=== PATIENT | male | born 1945 | race Caucasian/White ===

== ENCOUNTER 2016-12-28 19:53 | Inpatient (IN) ==
[2016-12-28] MEDS ORDERED: Ipratropium/Albuterol Neb 3 ML IH ONE (20:19)
[2016-12-28 20:32] LABS: Basophils # 0.1 K/mcL (0.0-0.2); Basophils % 0.6 %; Eosinophils # 0.2 K/mcL (0.0-0.6); Eosinophils % 1.5 %; Hematocrit 35.5 % (37.5-50.1); Hemoglobin 10.7 g/dL (12.9-16.9); Immature Granulocytes % 0.4 % (0-4); Lymphocytes # 0.9 K/mcL (0.6-4.6); Lymphocytes % 7.7 %; Mean Corpuscular HGB Conc 30.1 g/dL (31.6-35.5); Mean Corpuscular Hemoglobin 26.2 pg (28.0-33.3); Mean Corpuscular Volume 86.8 fL (83.0-100.0); Mean Platelet Volume 10.9 fL (9.4-12.4); Monocytes % 8.7 %; Neutrophils # 9.2 K/mcL (1.6-8.9); Platelet Count 205 K/mcL (140-400); Red Blood Count 4.09 M/mcL (4.19-5.50); Red Cell Distribution Width 17.7 % (11.5-14.5); Segmented Neutrophils % 81.1 %
[2016-12-28 20:46] LABS: Potassium 3.4 mEq/L (3.5-4.5)
--- NOTE | 2016-12-28 20:50 | Emergency Department Note ---
Disposition Clinical Impression: Hypoxia CHF exacerbation Qualifiers: Congestive heart failure type: unspecified congestive heart failure type Qualified Code(s): I50.9 - Heart failure, unspecified Disposition: Admitted As Inpatient SOB HPI - General Chief Complaint: ED Shortness of Breath/Dyspnea Stated Complaint: dahlia/had heart sx this year Time Seen by Provider: 12/28/16 20:07 Source: patient Limitations: no limitations Nursing Notes Reviewed: Yes Vital Signs Reviewed: Yes - History of Present Illness Patient here for evaluation of shortness of breath started several days ago and has been progressively worsening nature. Patient initially saw his PCP and was given some albuterol. No previous official diagnosis of COPD per patient. Patient had recent bypass surgery in August and has been doing well since then. Patient has had a recent decreased exertional capacity related to dyspnea. Patient does report some associated chest pain described as pressure that is relieved with rest and worse with exertion. - Related Data Home Medications Medication Instructions Recorded Confirmed Amlodipine Besylate 10 mg PO DAILY 10/22/16 11/07/16 Aspirin Enteric Coated [Aspirin EC] 81 mg PO DAILY 10/22/16 11/07/16 Calcitriol [Rocaltrol] 0.25 mcg PO DAILY 10/22/16 11/07/16 Calcium Acetate [Phos-LO] 667 mg PO TIDWM 10/22/16 11/07/16 Carvedilol 12.5 mg PO BID 10/22/16 11/07/16 Citalopram [CeleXA] 20 mg PO DAILY 10/22/16 11/07/16 Clopidogrel [Plavix] 75 mg PO DAILY 10/22/16 11/07/16 Docusate [Colace] 100 mg PO BID PRN 10/22/16 11/07/16 Ergocalciferol (VITAMIN D2) 2,000 unit PO BID 10/22/16 11/07/16 [Vitamin D2] HYDROcodone/Acet 5/325 mg [[place] 1 tab PO Q4H PRN 10/22/16 11/07/16 5-325 mg] Hydroxychloroquine [Plaquenuil] 200 mg PO BID 10/22/16 11/07/16 Montelukast [Singulair] 10 mg PO DAILY 10/22/16 11/07/16 Multivitamin [Multivitamins] 1 each PO DAILY 10/22/16 11/07/16 Polyethylene Glycol 3350 [MiraLAX 1 scoop PO BID PRN 10/22/16 11/07/16 Powder Bulk 17.9 Oz] hydrALAZINE [HydrALAZINE] 25 mg PO Q8HR 10/22/16 11/07/16 Allergies Allergy/AdvReac Type Severity Reaction Status Date / Time Twwjskh-Cgu-Swn Reductase Allergy Cramping Verified 08/22/16 21:47 Inhibitor of the [Statins] Muscles All systems ED: reviewed and negative except as stated. Constitutional: Denies: fever, chills Cardiovascular: Reports: chest pain, dyspnea on exertion Respiratory: Reports: cough, dyspnea Gastrointestinal: Denies: abdominal pain, nausea Genitourinary: Denies: urgency, dysuria Musculoskeletal: Denies: back pain, neck pain Endocrine: Reports: fatigue Past Medical History - Past Medical History Medical history: Reports: COPD, dialysis, GERD, hyperlipidemia, hypertension, myocardial infarction, renal disease, TIA Psychiatric history: Reports: anxiety - Social History Smoking Status: Former smoker Smokeless Tobacco Status: No Alcohol use: Reports: none Drug use: Reports: none Physical Exam - General Limitations: no limitations General appearance: alert - Head Head exam: atraumatic, normocephalic - Eye Eye exam: Present: normal appearance - ENT ENT exam: normal exam, normal oropharynx - Neck Neck exam: Present: normal inspection, full ROM - Chest Chest inspection: Present: normal inspection, symmetric chest wall rise. Absent : tenderness - Respiratory Respiratory exam: Present: normal lung sounds bilaterally, other (Overall decreased breath sounds). Absent: respiratory distress, wheezes - Cardiovascular Cardiovascular exam: Present: regular rate, normal rhythm - Abdominal Exam Abdominal exam: Present: soft, Non-Tender - Extremities Exam Extremities exam: Present: normal inspection. Absent: tenderness - Neurological Exam Neurological exam: Present: alert, oriented X3, CN II-XII intact - Psychiatric Psychiatric exam: Present: normal affect, normal mood - Skin Skin exam: Present: warm, dry, intact Course - Reevaluation(s) Reevaluation #1: Patient with significantly elevated BNP and pulmonary edema. Patient states that he had been off his Lasix for quite some time and was restarted recently. Patient does make urine. Patient will be given a dose of Lasix as well as antibiotics secondary to elevated temperature and white count. - Consultations Consultation #1: Discussed with hospitalist Dr. Multani. Pt accepted for further treatment. Vital Signs Temperature 100.3 F H 12/28/16 19:56 Pulse Rate 85 12/28/16 19:56 Respiratory Rate 20 12/28/16 19:56 Blood Pressure 178/78 12/28/16 19:56 O2 Sat by Pulse Oximetry 91 12/28/16 19:56 Temperature 100.3 F H 12/28/16 19:56 Pulse Rate 86 12/28/16 22:11 Respiratory Rate 20 12/28/16 22:11 Blood Pressure 177/91 12/28/16 22:11 O2 Sat by Pulse Oximetry 94 12/28/16 22:11 Oxygen Delivery Oxygen Delivery Nasal Cannula Shortness of Breath/Dyspnea - Medical Records Medical records reviewed: Yes I reviewed the patient's medical records. - Lab Data Lab results reviewed: Yes I reviewed the patient's lab results. Result diagrams: 12/28/16 20:26 12/28/16 20:26 Lab Results 12/28/16 12/28/16 12/28/16 Range/Units 20:26 20:26 20:26 WBC 11.3 H (4.3-11.1) K/mcL RBC 4.09 L (4.19-5.50) M/mcL Hgb 10.7 L (12.9-16.9) g/dL Hct 35.5 L (37.5-50.1) % MCV 86.8 (83.0-100.0) fL MCH 26.2 L (28.0-33.3) pg MCHC 30.1 L (31.6-35.5) g/dL RDW 17.7 H (11.5-14.5) % Plt Count 205 (140-400) K/mcL MPV 10.9 (9.4-12.4) fL Immature Gran % 0.4 (0-4) % Seg Neutrophils % 81.1 % Lymphocytes % 7.7 % Monocytes % 8.7 % Eosinophils % 1.5 % Basophils % 0.6 % Neutrophils # 9.2 H (1.6-8.9) K/mcL Lymphocytes # 0.9 (0.6-4.6) K/mcL Monocytes # 1.0 (0.0-1.3) K/mcL Eosinophils # 0.2 (0.0-0.6) K/mcL Basophils # 0.1 (0.0-0.2) K/mcL Sodium 139 (136-145) mEq/L Potassium 3.4 L (3.5-4.5) mEq/L Chloride 103 (98-109) mEq/L Carbon Dioxide 26 (19-29) mEq/L BUN 23 (8-26) mg/dL Creatinine 3.83 H (0.72-1.25) mg/dL Est GFR ( Amer) 19 L (> 60) Est GFR (Non-Af Amer) 16 L (> 60) BUN/Creatinine Ratio 6 (6-26) Glucose 121 H (70-99) mg/dL Calculated Osmolality 293 (280-300) Calcium 9.0 (8.6-10.8) mg/dL Troponin I 0.05 H* (0-0.03) ng/mL B-Natriuretic Peptide (0-100) pg/mL 12/28/16 Range/Units 20:26 WBC (4.3-11.1) K/mcL RBC (4.19-5.50) M/mcL Hgb (12.9-16.9) g/dL Hct (37.5-50.1) % MCV (83.0-100.0) fL MCH (28.0-33.3) pg MCHC (31.6-35.5) g/dL RDW (11.5-14.5) % Plt Count (140-400) K/mcL MPV (9.4-12.4) fL Immature Gran % (0-4) % Seg Neutrophils % % Lymphocytes % % Monocytes % % Eosinophils % % Basophils % % Neutrophils # (1.6-8.9) K/mcL Lymphocytes # (0.6-4.6) K/mcL Monocytes # (0.0-1.3) K/mcL Eosinophils # (0.0-0.6) K/mcL Basophils # (0.0-0.2) K/mcL Sodium (136-145) mEq/L Potassium (3.5-4.5) mEq/L Chloride (98-109) mEq/L Carbon Dioxide (19-29) mEq/L BUN (8-26) mg/dL Creatinine (0.72-1.25) mg/dL Est GFR ( Amer) (> 60) Est GFR (Non-Af Amer) (> 60) BUN/Creatinine Ratio (6-26) Glucose (70-99) mg/dL Calculated Osmolality (280-300) Calcium (8.6-10.8) mg/dL Troponin I (0-0.03) ng/mL B-Natriuretic Peptide > 5000 H (0-100) pg/mL - Radiology Data Radiology results reviewed: Yes I reviewed the patient's radiology results. - EKG Data EKG attestation: Yes I reviewed and interpreted this EKG. EKG results narrative: EKG shows sinus rhythm with ventricular rate of 84. DC interval 185. QRS 106. QTC 405. Patient has no specific ST elevations or depressions. Nonspecific ST wave changes. Attestation Statement - Attestation Attestation: I personally interviewed and examined this patient and my medical decision- making was reviewed with the ED Resident Physician, Dr. Torres. I agree with the documented findings, disposition and treatment plan as described except to the extent set forth below. Patient is a 71-year-old white male with a history of coronary artery disease, COPD, CHF who presents to emergency department today with shortness of breath and hypoxia. Patient is 91% on 2 L nasal cannula oxygen, not normally oxygen dependent on arrival. Patient with tachypnea and coarse sounding cough at bedside. Patient with mild respiratory distress on arrival. Patient receiving a DuoNeb on my evaluation with diminished breath sounds in the right lung base, patient reporting improved symptoms during nebulizer treatment. Patient also febrile on arrival with a temp of 100.3. Patient's EKG unremarkable for any acute findings. Patient given aspirin. Labs were drawn and sent. Portable chest x-ray was ordered. Labs show mild leukocytosis, patient with a hemoglobin of 10.3 which is improved from prior labs. Patient with elevated troponin at 0.05. This is in the setting of renal insufficiency which is actually much improved from his baseline. Patient's chest x-ray shows pulmonary edema with bilateral pleural effusions right greater than left. Patient was given Lasix IV. On reevaluation patient's family stated that his Lasix had recently been stopped and he was supposed to restart it but had not taken any as of yet. Patient at this time improved respiratory status. We will also cover with antibiotics in the setting of pulmonary edema elevated white count and fever case there could be an underlying infiltrate as his symptoms are mainly surrounding cough and mild respiratory distress. Patient's been accepted for admission by the hospitalist for further evaluation and treatment. Patient's respiratory status has been stable with just supplemental nasal cannula oxygen.
[2016-12-28] MEDS ORDERED: Furosemide 40 MG/4 ML VIAL IVP ONE (22:30)
[2016-12-28] MEDS ORDERED: Piperacillin/Tazobactam 3.375 GM in D5% in Water (Mini-Bag+) 100 ML IVPB ONE (22:33)
[2016-12-28] MEDS ORDERED: Aspirin 81 MG TAB.CHEW PO STA (22:36)
[2016-12-29] MEDS ORDERED: Naloxone 0.4 MG/ML INJ IVP PRN (00:35)
[2016-12-29] MEDS ORDERED: Furosemide 40 MG/4 ML VIAL IVP ONE (00:39)
--- NOTE | 2016-12-29 00:43 | Internal Med History&Physical ---
Date of Encounter: 12/29/16 Time of Encounter: 00:43 Assessment and Plan (1) Acute respiratory failure Current visit: Yes Status: Acute Likely due to pulmonary edema / volume overload/acute exacerbation of CHF. Continue supplemental oxygen. Patient is given intravenous Lasix. Nephrology consultation for possible hemodialysis to improve volume status Qualifiers: Respiratory failure complication: hypoxia Qualified Code(s): J96.01 - Acute respiratory failure with hypoxia (2) CHF exacerbation Current visit: Yes Status: Acute Pt has h/o CAD / s/p CABG. We do not have echocardiogram result in the system - will obtain echocardiogram. Treat with lasix IV for now. Nephrology consult in the AM. Qualifiers: Congestive heart failure type: unspecified congestive heart failure type Qualified Code(s): I50.9 - Heart failure, unspecified (3) ESRD (end stage renal disease) on dialysis Current visit: Yes Status: Acute Nephrology consultation (4) Elevated troponin Current visit: Yes Status: Acute Likely in the context of CHF exacerbation and ESRD. Monitor troponin levels (5) UTI (urinary tract infection) Current visit: Yes Status: Suspected Pt has symptoms suggestive of UTI. UA / cultures pending. Emperically started on zosyn. Qualifiers: Urinary tract infection type: site unspecified Hematuria presence: without hematuria Qualified Code(s): N39.0 - Urinary tract infection, site not specified (6) Diabetes mellitus Current visit: Yes Status: Acute Start sliding scale insulin Qualifiers: Diabetes mellitus type: type 2 Diabetes mellitus complication status: with unspecified complications Diabetes mellitus senior living insulin use: without senior living use Qualified Code(s): E11.8 - Type 2 diabetes mellitus with unspecified complications (7) Pleural effusion Current visit: Yes Status: Acute B/L effusions R>L. Likely due to volume overload due to CHF and ESRD. Not for thoracentesis at this time. (8) Anemia Current visit: Yes Status: Chronic Normocytic anemia; Likely Anemia of chronic disease from ESRD. Monitor Qualifiers: Anemia type: unspecified type Qualified Code(s): D64.9 - Anemia, unspecified (9) DVT prophylaxis Current visit: Yes Status: Acute Subcutaneous heparin Internal Medicine - H&P: HPI Chief complaint: Shortness of breath Admitted From: Emergency Dept Plans for Post Hospital Care: Home History of present illness: Mr. Rea is a 71 year old male with past medical history significant for CAD / PR s/p CABG, ESRD on hemodialysis (he reports that his dry weight is 85 Kg; his reports that he does not have fluid removed during dialysis), hypertension, diet-controlled diabetes mellitus, GERD. He presents to the emergency department with gradually worsening shortness of breath, which started a few days ago. Shortness of breath is exertional and he also reports orthopnea. He reports wet cough but is unable to expectorate any sputum. Reports swelling of ankles. He denies chest pain, fever, chills, nausea, vomiting, abdominal pain, changes in bowel habits. He reports that he is not producing as much urine, and apparently urine is cloudy / creamy. He was evaluated in the emergency department and was noted to have oxygen saturation of 91% on 2 L nasal cannula oxygen, (not normally oxygen dependent). He was thought to have pulmonary edema and was given intravenous Lasix 40 mg. Had leukocytosis with white cell count of 11.3 and temperature of 100.3 He was empirically given zosyn, in the ER for suspected underlying pneumonia. He is admitted to the hospitalist service for further workup and management. Past Med Surg Social Fam HX - Past Medical History Medical history: COPD, dialysis, GERD, hyperlipidemia, hypertension, myocardial infarction, renal disease, TIA Psychiatric history: anxiety - Past Surgical History Surgical History: angioplasty/stent, appendectomy - Social History Smoking Status: Former smoker Smokeless Tobacco Status: No Alcohol use: none Drug use: none - Family History Father Name: Anibal Rea Jr Family Member Ethnicity: Non- Living Status: Cause of : renal failure Hx Family Cardiac Disorders: Yes Hx Family Respiratory Disorders: No Hx Family Cancer: No Hx Family GI Disorders: No Hx Family Genitourinary Disorders: No Hx Family Endocrine Disorder: Yes Hx Family Musculoskeletal Disorders: No Hx Family Neuromuscular Disorders: No Hx Family Neurologic Disorders: No Hx Family HEENT Disorders: No Hx Family Autoimmune Disorders: No Hx Family Reproductive Disorders: No Hx Family Psychosocial Disorders: No Hx Family Medical Disorders: No Internal Medicine - H&P: Meds Amlodipine Besylate 10 mg PO DAILY 10/22/16 [History] Aspirin Enteric Coated [Aspirin EC] 81 mg PO DAILY 10/22/16 [History] Calcitriol [Rocaltrol] 0.25 mcg PO DAILY 10/22/16 [History] Calcium Acetate [Phos-LO] 667 mg PO TIDWM 10/22/16 [History] Carvedilol 12.5 mg PO BID 10/22/16 [History] Citalopram [CeleXA] 20 mg PO DAILY 10/22/16 [History] Clopidogrel [Plavix] 75 mg PO DAILY 10/22/16 [History] Docusate [Colace] 100 mg PO BID PRN 10/22/16 [History] Ergocalciferol (VITAMIN D2) [Vitamin D2] 2,000 unit PO BID 10/22/16 [History] HYDROcodone/Acet 5/325 mg [[place] 5-325 mg] 1 tab PO Q4H PRN 10/22/16 [History] Hydroxychloroquine [Plaquenuil] 200 mg PO BID 10/22/16 [History] Montelukast [Singulair] 10 mg PO DAILY 10/22/16 [History] Multivitamin [Multivitamins] 1 each PO DAILY 10/22/16 [History] Polyethylene Glycol 3350 [MiraLAX Powder Bulk 17.9 Oz] 1 scoop PO BID PRN [History] hydrALAZINE [HydrALAZINE] 25 mg PO Q8HR 10/22/16 [History] Allergies Aiwwiis-Nqd-Faq Reductase Inhibitor [Statins] Allergy (Verified 08/22/16 21:47) Cramping of the Muscles All Systems PM: A 10-system review of systems was performed and is negative for pertinent findings except as documented above in the HPI. - Constitutional Vitals: Temp Pulse Resp BP Pulse Ox 98.8 F 89 20 185/84 90 12/28/16 23:43 12/28/16 23:43 12/28/16 23:43 12/28/16 23:43 12/28/16 23:43 Exam: General: Not in acute distress at the time of my evaluation HEENT: Oral mucosa is moist. No conjunctival palor or scleral icterus Neck: No obvious neck swellings. He has righ IJ dialysis catheter in place Lungs: Diminished breath sounds right base. Basilar crackles Cardiac: Regular rate and rhythm. No significant murmurs Abdomen: Soft, non tender. Bowel sounds present Genitourinary: No you catheter Neurological: Alert and oriented. No gross localizing deficits Psych: Not aggressive or agitated Extremities: B/L leg edema present Skin: No generalized rash Internal Med - H&P Results - Labs CBC & Chem 7: 12/29/16 01:03 12/29/16 01:03 - EKG Data -: EKG Interpreted by Myself EKG shows normal: sinus rhythm - EKG Data EKG comments: Non specific ST-T changes 12/29/16 08:52 - Impressions ITS Impressions Chest X-Ray 12/28/16 20:18 IMPRESSION: Pulmonary edema. Moderate right pleural effusion and small left pleural effusion. D/ / Umberto Troy MD / Umberto Troy MD Interpreting Provider: Umberto Troy MD
[2016-12-29 01:18] LABS: Basophils # 0.1 K/mcL (0.0-0.2); Basophils % 0.6 %; Eosinophils # 0.1 K/mcL (0.0-0.6); Eosinophils % 0.8 %; Hematocrit 35.6 % (37.5-50.1); Hemoglobin 10.9 g/dL (12.9-16.9); Immature Granulocytes % 0.4 % (0-4); Lymphocytes # 0.8 K/mcL (0.6-4.6); Mean Corpuscular HGB Conc 30.6 g/dL (31.6-35.5); Mean Corpuscular Hemoglobin 26.7 pg (28.0-33.3); Mean Platelet Volume 11.3 fL (9.4-12.4); Monocytes # 0.9 K/mcL (0.0-1.3); Monocytes % 7.9 %; Neutrophils # 9.8 K/mcL (1.6-8.9); Platelet Count 197 K/mcL (140-400); Red Blood Count 4.09 M/mcL (4.19-5.50); Red Cell Distribution Width 17.8 % (11.5-14.5); Segmented Neutrophils % 83.3 %
[2016-12-29 01:30] LABS: Calcium 8.7 mg/dL (8.6-10.8); Magnesium 2.1 mg/dL (1.6-2.6); Potassium 3.5 mEq/L (3.5-4.5)
[2016-12-29] MEDS: *HR* Heparin 5,000 UNIT/ML VIAL SQ SCH ×3 (06:01→22:07)
[2016-12-29] MEDS: Aspirin Enteric Coated 81 MG Tablet PO SCH (08:42)
[2016-12-29] MEDS: amLODIPine 5 MG TABLET PO SCH (08:42)
[2016-12-29] MEDS: Lactobacillus 1 EACH CAP.SPRINK PO SCH ×2 (08:42→22:07)
[2016-12-29] MEDS: Cholecalciferol (D-3) 1,000 UNIT TABLET PO SCH ×2 (08:43→22:06)
[2016-12-29] MEDS ORDERED: Ipratropium/Albuterol Neb 3 ML IH PRN (09:01)
[2016-12-29 09:21] LABS: Adenovirus Not Detected (Not Detect); Bordetella Pertussis Not Detected (Not Detect); Chlamydophila pneumoniae Not Detected (Not Detect); Coronavirus 229E Not Detected (Not Detect); Coronavirus HKU1 Not Detected (Not Detect); Coronavirus NL63 Not Detected (Not Detect); Coronavirus OC43 Not Detected (Not Detect); Human Metapneumovirus Not Detected (Not Detect); Human Rhinovirus/Enterovirus Not Detected (Not Detect); Influenza A Subtype 2009 H1 Not Detected (Not Detect); Influenza A Untypeable Not Detected (Not Detect); Influenza B Not Detected (Not Detect); Mycoplasma pneumoniae Not Detected (Not Detect); Parainfluenza Virus 1 Not Detected (Not Detect); Parainfluenza Virus 2 Not Detected (Not Detect); Parainfluenza Virus 3 Not Detected (Not Detect); Parainfluenza Virus 4 Not Detected (Not Detect); Respiratory Syncytial Virus Not Detected (Not Detect)
[2016-12-29 10:26] LABS: Bilirubin,Urine Negative (Negative); Blood,Urine Small (Negative); Clarity,Urine Clear (Clear); Color,Urine Yellow (Yellow); Glucose,Urine (UA) Normal (Normal); Ketones,Urine Negative (Negative); Leukocyte Esterase,Urine Negative (Negative); Nitrite,Urine Negative (Negative); PH,Urine 7.5 pH Units (5.0-8.0); Protein,Urine >=1000 mg/dL (Neg-Trace); Specific Gravity,Urine 1.018 (1.010-1.025); Urobilinogen,Urine Normal (Normal)
[2016-12-29 10:28] LABS: Bacteria,Urine None Seen per hpf (None-Few); Hyaline Casts,Urine None Seen per lpf (None-Few); RBC,Urine 0-3 per hpf (0-3); Squamous Epithelial Cell,Urine Many per lpf (None-Few)
[2016-12-29] MEDS ORDERED: Piperacillin/Tazobactam 3.375 GM in D5% in Water (Mini-Bag+) 100 ML IVPB SCH (11:00)
--- NOTE | 2016-12-29 11:02 | Internal Med Progress Note ---
Date of Encounter: 12/29/16 Time of Encounter: 09:00 - Assessment and plan (1) CHF exacerbation Current Visit: Yes Status: Acute Assessment and plan: Shortness of breath in patient with history of congestive heart failure and coronary artery disease on chronic hemodialysis. Brain natruretic peptide over 5000. He has only a minimal amount of residual urine on a daily basis, he did receive a dose of Lasix in the emergency department. He feels better than yesterday but is still short of breath. We will get an opinion from nephrology for possibility of hemodialysis. Additionally, an echocardiogram has been requested to assess left ventricular systolic function. His medications including his home Plavix and aspirin have been [place] started. The patient was explained about the plan. All his questions were answered. Qualifiers: Congestive heart failure type: unspecified congestive heart failure type Qualified Code(s): I50.9 - Heart failure, unspecified (2) ESRD (end stage renal disease) on dialysis Current Visit: Yes Status: Acute Assessment and plan: Hemodialysis as per nephrology. (3) Acute respiratory failure Current Visit: Yes Status: Acute Assessment and plan: The patient is currently on oxygen supplementation via nasal cannula. Likely due to fluid overload in setting of CHF and end-stage renal disease. Not in significant respiratory distress at this point. Qualifiers: Respiratory failure complication: hypoxia Qualified Code(s): J96.01 - Acute respiratory failure with hypoxia (4) UTI (urinary tract infection) Current Visit: Yes Status: Suspected Assessment and plan: Patient was started on IV antibiotic for a possible UTI. He was initially given Zosyn. At this point there is no leukocytosis, patient seems hemodynamically stable, will de-escalate to Rocephin and follow cultures. Infectious respiratory panel was obtained, it was negative. Max temperature 100.3 Fahrenheit. Qualifiers: Urinary tract infection type: site unspecified Hematuria presence: without hematuria Qualified Code(s): N39.0 - Urinary tract infection, site not specified (5) DVT prophylaxis Current Visit: Yes Status: Acute (6) Pleural effusion Current Visit: Yes Status: Acute - Subjective Interval history: First encounter with the patient. The patient was admitted due to shortness of breath, he denied chest pain. He is a patient of end-stage renal disease on hemodialysis, his last hemodialysis was on Friday. He typically has them on dialysis Friday, Wednesdays and Fridays. He is status has a history of CABG, he also had a PCI status post stents around a month ago at [facility]. He is on dual antiplatelet therapy with both aspirin and Plavix. - Constitutional Vitals: Temp Pulse Resp BP Pulse Ox 98.3 F 101 18 180/88 91 12/29/16 07:20 12/29/16 07:20 12/29/16 07:20 12/29/16 07:20 12/29/16 09:00 General appearance: Present: mild distress, A&O X 3, pleasant - Head Head exam: Present: atraumatic, normocephalic - Eye Eye exam: Present: PERRL, conjuntiva pink, sclera anicteric Pupils: Present: PERRL - Neck Neck exam general surgery: Present: supple, trachea midline. Absent: lymphadenopathy - Respiratory Respiratory exam: Present: decreased breath sounds. Absent: accessory muscle use, rales, rhonchi, wheezes - Cardiovascular Cardiovascular exam: Present: RRR, +S1, +S2. Absent: diastolic murmur, gallop, rubs, systolic murmur - GI/Abdominal GI/Abdominal exam: Present: normal bowel sounds, soft, no peritoneal signs. Absent: distended, tenderness - Extremities Exam Extremities exam: Present: pedal edema, warm, radial pulses palpable and symetrical. Absent: calf tenderness, cyanotic - Neurological Exam Neurological exam: Present: CN II-XII intact, oriented X3, no focal deficits. Absent: pronater drift, facial droop, speech deficit - Skin Skin exam: Present: dry, intact Internal Medicine: Result - Labs CBC & Chem 7: 12/29/16 01:03 12/29/16 01:03 Labs: Short CBC 12/29/16 Range/Units 01:03 WBC 11.8 H (4.3-11.1) K/mcL Hgb 10.9 L (12.9-16.9) g/dL Hct 35.6 L (37.5-50.1) % Plt Count 197 (140-400) K/mcL Neutrophils # 9.8 H (1.6-8.9) K/mcL BMP 12/29/16 01:03 Sodium 139 Potassium 3.5 Chloride 102 Carbon Dioxide 23 BUN 24 Creatinine 3.94 H Glucose 101 H Calcium 8.7 Cardiac Enzymes 12/29/16 Range/Units 01:03 Troponin I 0.06 H* (0-0.03) ng/mL Urine 12/29/16 Range/Units 10:10 Urine Color Yellow (Yellow) Urine Clarity Clear (Clear) Urine pH 7.5 (5.0-8.0) pH Units Ur Specific [place] 1.018 (1.010-1.025) Urine Protein >=1000 H (Neg-Trace) mg/dL Urine Glucose (UA) Normal (Normal) mg/dL Consult Discharge Plan - Plan Referrals: Levon Anne DO [Primary Care Provider] - (Web Requested 12/29/16 )
--- NOTE | 2016-12-29 14:55 | ECHO - Doppler Report ---
Echocardiogram Name: Haleigh Rea Date of Study: 12/29/2016 Date: 1945 Ht: 70.0 in Medical Record#: [id number] Age: 71 Wt: 185.0 lb Gender: Male BSA: 2.02 Order #: [id number] Location: [facility] Room #: 2A13 Reading Physician: Deep Cramer MD, [facility] Snagger: Nuha Fournier RVT Ordering Physician: Mila Barney MD Primary Physician: Levon Anne DO Indications: Acute exacerbation of CHF Impressions: LVEF 35-40%. Moderate global left ventricular systolic dysfunction. Mild-moderate mitral regurgitation. Left Ventricular Wall Motion: Rest Echo Findings The apex, apical inferior, mid inferior, basal inferior, apical anterior, mid anterior, basal anterior, apical septal, mid inferior septal, basal inferior septal, apical lateral, mid anterior lateral, basal anterior lateral, mid anterior septal, mid inferior lateral, basal anterior septal and basal inferior lateral graham were hypokinetic. Findings: Study Quality * Technically adequate exam. Right Ventricle * Normal right ventricular structure and function. Right Atrium * Normal right atrial size. Interatrial Septum * No evidence of PFO by color Doppler. Aorta * Normally sized aortic root. Pericardium * The pericardium appears normal. ECG Findings * Normal sinus rhythm. Mitral Valve * No mitral stenosis. * Mild mitral annular calcification * Mild-moderate mitral regurgitation. Left Atrium * Mildly dilated left atrium. Aortic Valve * No aortic stenosis. * Aortic valve not well visualized. * Mild aortic regurgitation. Pulmonic Valve * No pulmonic stenosis. * No pulmonic regurgitation. * Pulmonic valve is not well visualized. Tricuspid Valve * Trace tricuspid regurgitation. * No tricuspid stenosis. * Unable to estimate RVSP due to lack of TR jet. * Estimated RA pressure is 10-15 mmHg. Left Ventricle * LVEF 35-40%. * Moderate global left ventricular systolic dysfunction. * Indeterminate diastolic function. IVC * The IVC is dilated. * < 50% respiratory change. History Hypertension Family History of CAD History of CAD/PTCA Myocardial Infarction Coronary Artery Bypass Graft Congestive Heart Failure 05/10/2014 a Previous Echo was performed. Measurements: BP: 180/ 88 2D Normal Values RVIDd: 2.40 cm <2.7 cm IVSd: 1.30 cm 0.6 - 1.0 cm LVIDd: 5.70 cm 3.7 - 5.6 cm LVPWd: 1.30 cm 0.6 - 1.1 cm LVIDs: 3.90 cm 1.5 - 3.6 cm AO: 2.40 cm < 4.0 cm LA: 4.20 cm 2.0 - 4.0cm %FS: 31.60 cm >25 % LA volume: 67 Mitral Valve Peak E:1.32 m/sec Peak A:.93 m/sec E/A Ratio:1.4 Peak E' Lat Miky:6.25 cm/s Peak E' Med Miky:6.56 cm/s E/E' Lat Ratio:21.1 E/E' Med Ratio:20.1 Aortic Valve AI pressure Half-time: 423.00 msec Tricuspid Valve TV Regurg Peak Grad: 3.00mmHg TV Regurg Peak Miky: .80m/sec Updated by Deep Cramer MD, [facility] on 12/29/2016 2:46:51 PM electronically signed on 12/29/2016 2:50:20 PM with status of Final Wall Motion Salazar: 1=Normal, 2=Hypokinesis, 3=Akinesis, 4=Dyskinesis, 5=Aneurysmal, 6=Hyperkinetic, X=Not Visualized (Blank)=Missing
--- NOTE | 2016-12-29 15:08 | Nephrology Consult Note ---
Date of Encounter: 12/29/16 Time of Encounter: 15:04 Assessment and Plan (1) Acute respiratory failure Current Visit: Yes Status: Acute Combination of pleural effusion and CHF. Will perform UF tonight as patient's oxygen requirement is increasing and his daughter thinks his symptoms are and dialysis in am. I recommend a thoracentesis as well and spoke with Dr. Hernández about this and he will order it. Qualifiers: Respiratory failure complication: hypoxia Qualified Code(s): J96.01 - Acute respiratory failure with hypoxia (2) ESRD (end stage renal disease) on dialysis Current Visit: Yes Status: Acute HD MWF Plan for HD Friday. Renal dose medications. Renal diet. (3) Diabetes mellitus Current Visit: Yes Status: Acute Per primary team. Qualifiers: Diabetes mellitus type: type 2 Diabetes mellitus complication status: with unspecified complications Diabetes mellitus fpc insulin use: without fpc use Qualified Code(s): E11.8 - Type 2 diabetes mellitus with unspecified complications (4) Anemia Current Visit: Yes Status: Chronic Monitor for bleeding. Qualifiers: Anemia type: unspecified type Qualified Code(s): D64.9 - Anemia, unspecified History of Present Illness - Reason for Consult Consult date: 12/29/16 end stage renal disease - Chief Complaint Shortness of breath - History of Present Illness Mr. Rea is a 71 yo man with a history of ESRD followed in dialysis by Dr. Chandler who presents secondary to increasing shortness of breath. He is accompanied by his daughter and who are at the bedside. He reports his dyspnea began on prior to admission and was initially associated with some chest pressure. He received only mild relief with dialysis on Friday. His dyspnea got worse and he came to the ER and was admitted. His currently denies chest pain. No cough. No fevers or chills. He reports about a 30 pound weight loss since August of this year. Past Med Surg Social Fam HX - Past Medical History Medical history: COPD, dialysis, GERD, hyperlipidemia, hypertension, myocardial infarction, renal disease, TIA Psychiatric history: anxiety - Past Surgical History Surgical History: angioplasty/stent, appendectomy - Social History Smoking Status: Former smoker Smokeless Tobacco Status: No Alcohol use: none Drug use: none - Family History Father Name: Anibal Rea Jr Family Member Ethnicity: Non- Living Status: Cause of : renal failure Hx Family Cardiac Disorders: Yes Hx Family Respiratory Disorders: No Hx Family Cancer: No Hx Family GI Disorders: No Hx Family Genitourinary Disorders: No Hx Family Endocrine Disorder: Yes Hx Family Musculoskeletal Disorders: No Hx Family Neuromuscular Disorders: No Hx Family Neurologic Disorders: No Hx Family HEENT Disorders: No Hx Family Autoimmune Disorders: No Hx Family Reproductive Disorders: No Hx Family Psychosocial Disorders: No Hx Family Medical Disorders: No Medications and Allergies Amlodipine Besylate 10 mg PO DAILY 10/22/16 [History] Aspirin Enteric Coated [Aspirin EC] 81 mg PO DAILY 10/22/16 [History] Calcitriol [Rocaltrol] 0.25 mcg PO DAILY 10/22/16 [History] Calcium Acetate [Phos-LO] 667 mg PO TIDWM 10/22/16 [History] Carvedilol 12.5 mg PO BID 10/22/16 [History] Clopidogrel [Plavix] 75 mg PO DAILY 10/22/16 [History] Docusate [Colace] 100 mg PO BID PRN 10/22/16 [History] Ergocalciferol (VITAMIN D2) [Vitamin D2] 2,000 unit PO BID 10/22/16 [History] HYDROcodone/Acet 5/325 mg [[place] 5-325 mg] 1 tab PO Q4H PRN 10/22/16 [History] Hydroxychloroquine [Plaquenuil] 200 mg PO BID 10/22/16 [History] Montelukast [Singulair] 10 mg PO HS 10/22/16 [History] Multivitamin [Multivitamins] 1 each PO DAILY 10/22/16 [History] Polyethylene Glycol 3350 [MiraLAX Powder Bulk 17.9 Oz] 1 scoop PO BID PRN [History] Albuterol Sulfate [Albuterol Inhaler] 2 puff IH Q4H PRN 12/29/16 [History] Citalopram Hydrobromide [Citalopram HBr] 40 mg PO DAILY 12/29/16 [History] Allergies Tbwrdwm-Koe-Qvh Reductase Inhibitor [Statins] Allergy (Verified 08/22/16 21:47) Cramping of the Muscles Review of Systems All Systems: reviewed and no additional remarkable complaints except as stated ( as documented in the HPI.) Exam - Vital Signs Vital signs: Initial Vital Signs Temp Pulse Resp BP Pulse Ox 100.3 F H 85 20 178/78 91 12/28/16 19:56 12/28/16 19:56 12/28/16 19:56 12/28/16 19:56 12/28/16 19:56 Vital Signs - Last 8 Hours Temp Pulse Resp BP Pulse Ox 12/29/16 12:34 98.0 F 82 18 178/76 90 12/29/16 09:00 91 12/29/16 07:20 98.3 F 101 18 180/88 91 Intake and Output 12/28/16 12/29/16 12/29/16 23:59 07:59 15:59 Intake Total Output Total 0 / 0 Balance Intake: IV Fluids Zosyn 3.375 GM In Dextrose 5% (Minibag+) 100 ML 100 ML @ 25 mls/hr IVPB Q12H ARY Rx#: [id number] Oral 50 / 50 Output: Urine 0 / 0 Other: Meal Lunch Percent of Meal Consumed 0% Weight 84.028 kg Blood Glucose* 97 129 Patient Weight 12/29/16 23:59 Weight 84.028 kg - General Appearance General appearance: well-developed, well-nourished EENT: ATNC Neck: supple Additional Comments: Decreased breath sounds on the right. Decreased breath sounds in the base of the left with rales in the upper area. Cardiology: edema, irregular rhythm - Dialysis Access Dialysis Vascular Access: Arteriovenous Fistula (left lower arm with a good thrill and bruit.) Additional Comments: Right chest tunnelled catheter. Integumentary: warm and dry Neurologic: alert and oriented x3 Musculoskeletal: no cyanosis Psychiatric: mood/affect appropriate Results - Lab Results 12/29/16 01:03 12/29/16 01:03 Most recent lab results Calcium 8.7 mg/dL (8.6-10.8) 12/29/16 01:03 Magnesium 2.1 mg/dL (1.6-2.6) 12/29/16 01:03 Consult Discharge Plan - Plan Referrals: Levon Anne DO [Primary Care Provider] - (Web Requested 12/29/16 )
[2016-12-29 16:22] LABS: INR 1.3; Prothrombin Time 14.5 Seconds (9.4-12.1)
[2016-12-29] MEDS ORDERED: 0.9 % Sodium Chloride 250 ML IVC PRN (16:46)
[2016-12-29] MEDS ORDERED: 0.9 % Sodium Chloride 1,000 ML PRIME SCH (17:00)
[2016-12-29 18:03] LABS: ABG Base Excess 2.1 mEq/L (-2.0 to 3.0); ABG HCO3 24.7 mEQ/L (21-27); ABG Oxygen Saturation 95 % (95-98); ABG PCO2 31 mmHg (35-45); ABG PH 7.51 pH Units (7.32-7.45); ABG PO2 69 mmHg (85-104); ABG TCO2 25.7 mEq/L (20-26)
[2016-12-29 18:05] LABS: Blood Gas FiO2 36 %
[2016-12-29] MEDS ORDERED: 0.9 % Sodium Chloride 2,000 ML ONE (20:53)
[2016-12-30] MEDS ORDERED: Furosemide 40 MG/4 ML VIAL IVP ONE (02:04)
[2016-12-30] MEDS: *HR* Heparin 5,000 UNIT/ML VIAL SQ SCH ×3 (05:07→23:35)
[2016-12-30 06:02] LABS: INR 1.3; Prothrombin Time 13.8 Seconds (9.4-12.1)
[2016-12-30 06:10] LABS: Basophils # 0.1 K/mcL (0.0-0.2); Basophils % 0.3 %; Eosinophils # 0.1 K/mcL (0.0-0.6); Eosinophils % 0.3 %; Hematocrit 34.4 % (37.5-50.1); Hemoglobin 10.7 g/dL (12.9-16.9); Immature Granulocytes % 0.6 % (0-4); Lymphocytes # 0.9 K/mcL (0.6-4.6); Lymphocytes % 5.2 %; Mean Corpuscular HGB Conc 31.1 g/dL (31.6-35.5); Mean Corpuscular Hemoglobin 26.8 pg (28.0-33.3); Mean Platelet Volume 12.1 fL (9.4-12.4); Monocytes # 1.2 K/mcL (0.0-1.3); Monocytes % 6.8 %; Neutrophils # 14.9 K/mcL (1.6-8.9); Platelet Count 220 K/mcL (140-400); Red Cell Distribution Width 17.6 % (11.5-14.5); Segmented Neutrophils % 86.8 %
[2016-12-30 06:16] LABS: Calcium 9.4 mg/dL (8.6-10.8); Potassium 3.5 mEq/L (3.5-4.5)
[2016-12-30] MEDS: Lactobacillus 1 EACH CAP.SPRINK PO SCH ×2 (06:19→23:34)
[2016-12-30] MEDS: Aspirin Enteric Coated 81 MG Tablet PO SCH (06:19)
[2016-12-30] MEDS: amLODIPine 5 MG TABLET PO SCH (06:19)
[2016-12-30] MEDS: Cholecalciferol (D-3) 1,000 UNIT TABLET PO SCH ×2 (06:19→23:35)
--- NOTE | 2016-12-30 09:24 | IR Procedure Note ---
Date of procedure: 12/30/16 Consent Obtained: Verbal consent Timeout: Correct patient and procedure verified, Correct site verified, Time out performed, Skin prep completed Local anesthetic: Lidocaine 1% Indications: Bilateral pleural effusions, right > left Procedure Performed: Right thoracentesis Site/Technique: Right chest Results/Findings: Still draining Estimated blood loss (cc): 1 Complications: None; Tolerated procedure well Post Procedure Treatment Plan: Post cxr ordered. Done at bedside. Monitoring in room.
[2016-12-30] MEDS ORDERED: 0.9 % Sodium Chloride 250 ML IVC PRN (09:43)
[2016-12-30] MEDS ORDERED: *HR* Heparin 10,000 UNIT/10 ML VIAL IV PRN (09:43)
[2016-12-30 10:14] LABS: Hepatitis B Surface Antigen Nonreactive (Nonreactive)
[2016-12-30 10:15] LABS: Hepatitis B Surface Antibody 269.29 mIU/mL
[2016-12-30 10:53] LABS: Albumin 3.1 g/dL (3.5-5.0); Albumin/Globulin Ratio 0.8 (1.1-2.2); Bilirubin,Direct 0.4 mg/dL (0.0-0.5); Bilirubin,Indirect 0.4 mg/dL (0.0-1.2); Bilirubin,Total 0.8 mg/dL (0.2-1.2); Globulin 3.9 g/dL (2.4-3.5)
[2016-12-30 11:15] LABS: RBC,Pleural Fluid 0.004 M/mcL
[2016-12-30 11:30] LABS: Amylase,Pleural Fluid 53 Units/L (No Ref Range); Glucose,Pleural Fluid 101 mg/dL (No Ref Range); LDH,Pleural Fluid 98 Units/L (No Ref Range); Total Protein,Pleural Fluid 2.4 g/dL (No Ref Range); Triglycerides, Pleural Fluid 23 mg/dL (No Ref Range)
[2016-12-30 11:55] LABS: Appearance of Pleural Fl Hazy (Clear)
[2016-12-30] MEDS ORDERED: 0.9 % Sodium Chloride 2,000 ML ONE (13:11)
--- NOTE | 2016-12-30 13:57 | Internal Med Progress Note ---
Date of Encounter: 12/30/16 Time of Encounter: 10:00 - Assessment and plan (1) CHF exacerbation Current Visit: Yes Status: Acute Assessment and plan: Shortness of breath in patient with history of congestive heart failure and coronary artery disease on chronic hemodialysis. Brain natruretic peptide over 5000. He has only a minimal amount of residual urine on a daily basis, he did receive a dose of Lasix in the emergency department. The patient had an echo which revealed significant fraction between 35-40% with moderate global left ventricular systolic dysfunction. Cmxk-ua-whzsxnic mitral regurgitation. He denies chest pain, today he underwent a right-sided thoracentesis. I anticipate improvement of his symptoms after the thoracentesis. He also is going for dialysis today. This should help to improve his volume status. Qualifiers: Congestive heart failure type: unspecified congestive heart failure type Qualified Code(s): I50.9 - Heart failure, unspecified (2) ESRD (end stage renal disease) on dialysis Current Visit: Yes Status: Acute Assessment and plan: Hemodialysis as per nephrology. (3) Acute respiratory failure Current Visit: Yes Status: Acute Assessment and plan: The patient is currently on oxygen supplementation via nasal cannula. Likely due to fluid overload in setting of CHF and end-stage renal disease. Not in significant respiratory distress at this point. Qualifiers: Respiratory failure complication: hypoxia Qualified Code(s): J96.01 - Acute respiratory failure with hypoxia (4) UTI (urinary tract infection) Current Visit: Yes Status: Suspected Assessment and plan: Patient was started on IV antibiotic for a possible UTI. He was initially given Zosyn. Yesterday I de-escalate antibiotic to Rocephin. There is no evidence of a definitive source of infection at this point, however the patient has leukocytosis and is confused. There is no evidence of pneumonia in the CAT scan, patient does not make urine output. At this point I cannot explain for sure why he is leukocytosis that is worse. We are following the blood culture which so far show no growth. He denies any headache or photophobia. No neck rigidity. A thoracentesis was obtained, the findings were consistent with a transudate, the pH was 7.4 which ruled out an empyema. His initial urinalysis did not look infected. We did extensive serologies looking for viral infections all of them were negative. There is no diarrhea or abdominal pain. Will give him the benefit of the doubt and put him back on empiric broad- spectrum antibiotic with both Zosyn and vancomycin, will follow clinically and monitor cultures. Qualifiers: Urinary tract infection type: site unspecified Hematuria presence: without hematuria Qualified Code(s): N39.0 - Urinary tract infection, site not specified (5) DVT prophylaxis Current Visit: Yes Status: Acute (6) Pleural effusion Current Visit: Yes Status: Acute Assessment and plan: Findings consistent with a transudate. - Subjective Interval history: The patient was admitted due to shortness of breath, he denied chest pain. He is a patient of end-stage renal disease on hemodialysis, his last hemodialysis was yesterday. He typically has them on dialysis Friday, Wednesdays and Fridays. He has a history of CABG, he also had PCI status post stents around a month ago at [facility]. He is on dual antiplatelet therapy with both aspirin and Plavix. Was confused overnight and was not able to sleep properly. Denies headaches, no fever. Oriented only to base and person, not oriented to time. - Constitutional Vitals: Temp Pulse Resp BP Pulse Ox 97.7 F 96 16 117/81 90 12/30/16 10:15 12/30/16 06:59 12/30/16 10:15 12/30/16 12:30 12/30/16 06:59 General appearance: Present: disheveled, A&O X 2, mild distress, pleasant - Head Head exam: Present: atraumatic, normocephalic - Eye Eye exam: Present: PERRL, conjuntiva pink, sclera anicteric Pupils: Present: PERRL - Neck Neck exam general surgery: Present: supple, trachea midline. Absent: lymphadenopathy - Respiratory Respiratory exam: Present: decreased breath sounds. Absent: accessory muscle use, rales, rhonchi, wheezes - Cardiovascular Cardiovascular exam: Present: RRR, +S1, +S2. Absent: diastolic murmur, gallop, rubs, systolic murmur - GI/Abdominal GI/Abdominal exam: Present: normal bowel sounds, soft, no peritoneal signs. Absent: distended, tenderness - Extremities Exam Extremities exam: Present: warm, radial pulses palpable and symetrical. Absent : calf tenderness, cyanotic, pedal edema - Neurological Exam Neurological exam: Present: CN II-XII intact, oriented X3, no focal deficits. Absent: pronater drift, facial droop, speech deficit - Skin Skin exam: Present: dry, intact Internal Medicine: Result - Labs CBC & Chem 7: 12/30/16 04:40 12/30/16 04:40 Labs: Short CBC 12/30/16 Range/Units 04:40 WBC 17.2 H (4.3-11.1) K/mcL Hgb 10.7 L (12.9-16.9) g/dL Hct 34.4 L (37.5-50.1) % Plt Count 220 (140-400) K/mcL Neutrophils # 14.9 H (1.6-8.9) K/mcL BMP 12/30/16 04:40 Sodium 138 Potassium 3.5 Chloride 99 Carbon Dioxide 22 BUN 44 H D Creatinine 5.15 H Glucose 130 H Calcium 9.4 Liver Function 12/30/16 Range/Units 04:40 Total Bilirubin 0.8 (0.2-1.2) mg/dL Direct Bilirubin 0.4 (0.0-0.5) mg/dL AST 18 (5-34) Units/L ALT 13 (0-55) Units/L Alkaline Phosphatase 67 (38-126) Units/L Albumin 3.1 L (3.5-5.0) g/dL - ABG Interpretation ABG results: ABG ABG pH 7.51 pH Units (7.32-7.45) H 12/29/16 17:50 ABG pCO2 31 mmHg (35-45) L 12/29/16 17:50 ABG pO2 69 mmHg (85-104) L 12/29/16 17:50 ABG O2 Saturation 95 % (95-98) 12/29/16 17:50 PT/INR, D-dimer PT 13.8 Seconds (9.4-12.1) H 12/30/16 04:40 - Impressions Impressions Thoracentesis Ultrasound 12/30/16 00:00 IMPRESSION: Successful ultrasound guided thoracentesis. D/ / Ramu Aponte MD / Ramu Aponte MD Interpreting Provider: Ramu Aponte MD Chest X-Ray 12/30/16 09:16 IMPRESSION: 1. Right central venous catheter unchanged in position. 2. Slight decrease in size in right-sided pleural effusion with unchanged left pleural effusion. 3. Persistently enlarged cardiac silhouette with prominence of the pulmonary vasculature. 4. No evidence of pneumothorax. D/ / Rohit Graham MD / Rohit Graham MD Interpreting Provider: Rohit Graham MD Consult Discharge Plan - Plan Referrals: Levon Anne DO [Primary Care Provider] - 01/07/17 1:30 pm (Web Requested 12/29/16 )
[2016-12-30] MEDS ORDERED: Vancomycin 1,250 MG in D5% in Water 250 ML IVPB ONE (14:21)
[2016-12-30] MEDS ORDERED: Vancomycin 1 EACH in D5% in Water 250 ML IVPB SCH (15:00)
--- NOTE | 2016-12-30 17:01 | Electrocardiograph Report ---
[address] [address] Test Date: 2016-12-28 Pat Name: Haleigh Rea Department: 103 Room: 2A13 Gender: M Channel Development Director: LESLIE : 1945 Requested By: Cirilo Torres Order Number: [id number] Reading MD: Rodolfo Mullins Measurements Intervals [place] Rate: 84 P: 19 CO: 185 QRS: -14 QRSD: 106 T: 136 QT: 364 QTc: 405 Interpretive Statements SINUS RHYTHM MODERATE VOLTAGE CRITERIA FOR LVH, CONSIDER NORMAL VARIANT NONSPECIFIC ST \T\ T-WAVE ABNORMALITY Electronically Signed On 12-30-2016 16:59:32 EDT by Rodolfo Mullins
[2016-12-30] MEDS: Piperacillin/Tazobactam 3.375 GM in D5% in Water (Mini-Bag+) 100 ML IVPB SCH (17:08)
--- NOTE | 2016-12-30 17:16 | Nephrology Progress Note ---
Date of Encounter: 12/30/16 Time of Encounter: 17:14 - Assessment and Plan (1) Acute respiratory failure Current Visit: Yes Status: Acute Secondary to CHF and pleural effusion. Improved after thoracentesis and UF with dialysis. Defer to primary team. May need pulmonary evaluation for recurrent pleural effusion. Qualifiers: Respiratory failure complication: hypoxia Qualified Code(s): J96.01 - Acute respiratory failure with hypoxia (2) ESRD (end stage renal disease) on dialysis Current Visit: Yes Status: Acute HD MWF and as needed. Renal dose medications. Renal diet. 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 Monitor. Qualifiers: Anemia type: unspecified type Qualified Code(s): D64.9 - Anemia, unspecified (5) Hypertension Current Visit: Yes Status: Acute Challenge dry weight and adjust medications as needed. Qualifiers: Qualified Code(s): I10 - Essential (primary) hypertension Subjective Principal diagnosis: ESRD Interval history: The patient was seen this morning on dialysis. He is status post thoracentesis. He reports his breathing is better. He is still slightly agitated as he wants to get up and walk even though he is on dialysis. Review of system otherwise appears to be stable and slightly unreliable. Objective - Vital Signs Vital signs: Vital Signs Temp Pulse Resp BP Pulse Ox 12/30/16 15:40 97.6 F 77 18 176/84 94 12/30/16 13:20 97.7 F 16 150/87 12/30/16 13:15 148/87 12/30/16 13:00 134/80 12/30/16 12:45 129/62 12/30/16 12:30 117/81 12/30/16 12:15 122/66 12/30/16 12:00 140/78 12/30/16 11:45 144/81 12/30/16 11:30 138/87 12/30/16 11:15 143/78 12/30/16 11:00 146/83 12/30/16 10:45 141/73 12/30/16 10:30 150/83 12/30/16 10:15 97.7 F 16 141/80 12/30/16 06:59 98.5 F 96 18 168/92 90 12/30/16 05:33 98.1 F 97 32 193/97 90 12/30/16 03:19 97.6 F 93 28 179/92 87 12/30/16 01:14 98.7 F 94 30 173/92 92 12/29/16 20:37 98.8 F 18 163/94 12/29/16 20:05 132/74 12/29/16 19:50 138/83 12/29/16 19:35 144/80 12/29/16 19:20 144/84 12/29/16 19:05 140/86 12/29/16 18:50 137/84 12/29/16 18:35 147/89 12/29/16 18:20 148/90 12/29/16 18:05 98.7 F 22 132/89 12/29/16 18:01 97.5 F L 101 18 132/89 93 Intake and Output 12/30/16 12/30/16 12/30/16 07:59 15:59 23:59 Intake Total 120 / 120 600 / 600 Output Total 3600 / 3600 Balance 120 / 120 -3000 / -3000 Intake: Oral 120 / 120 0 / 0 Intake, Rinseback and 600 / 600 Flushes Output: Urine 0 / 0 Total Dialysis Output 3600 / 3600 Other: Meal Breakfast Percent of Meal Consumed 0% Stool Size Small Stool Consistency soft Stool Color Brown # Voids 1 Weight 84.3 kg Blood Glucose* 166 134 Hemodialysis Net Fluid 3000 Removed (mL) Patient Weight 12/30/16 23:59 Weight 84.3 kg - General Appearance General appearance: Present: well-developed, well-nourished Exam: patient seen while on dialysis. EENT: Present: ATNC Neck: Present: supple Respiratory: Present: course breath sounds Cardiology: Present: no edema, regular rate, regular rhythm Gastrointestinal: Present: normoactive bowel sounds, no tenderness Integumentary: Present: warm and dry Neurologic: Present: alert and oriented x3 Musculoskeletal: Present: no cyanosis Psychiatric: Present: mood/affect appropriate - Lab 12/30/16 04:40 12/30/16 04:40 Most recent lab results ABG pH 7.51 pH Units (7.32-7.45) H 12/29/16 17:50 ABG pCO2 31 mmHg (35-45) L 12/29/16 17:50 ABG pO2 69 mmHg (85-104) L 12/29/16 17:50 ABG HCO3 24.7 mEQ/L (21-27) 12/29/16 17:50 ABG O2 Saturation 95 % (95-98) 12/29/16 17:50 Calcium 9.4 mg/dL (8.6-10.8) 12/30/16 04:40 Magnesium 2.1 mg/dL (1.6-2.6) 12/29/16 01:03 Consult Discharge Plan - Plan Referrals: Levon Anne DO [Primary Care Provider] - 01/07/17 1:30 pm (Web Requested 12/29/16 )
[2016-12-31] MEDS: hydrALAZINE 25 MG TABLET PO SCH ×3 (00:57→17:45)
[2016-12-31] MEDS: *HR* Heparin 5,000 UNIT/ML VIAL SQ SCH ×2 (05:43→15:01)
[2016-12-31] MEDS: Piperacillin/Tazobactam 3.375 GM in D5% in Water (Mini-Bag+) 100 ML IVPB SCH (05:43)
[2016-12-31 05:44] LABS: Basophils # 0.1 K/mcL (0.0-0.2); Basophils % 0.5 %; Eosinophils # 0.2 K/mcL (0.0-0.6); Eosinophils % 1.4 %; Hematocrit 31.9 % (37.5-50.1); Hemoglobin 10.1 g/dL (12.9-16.9); Immature Granulocytes % 0.5 % (0-4); Lymphocytes # 1.5 K/mcL (0.6-4.6); Lymphocytes % 11.9 %; Mean Corpuscular HGB Conc 31.7 g/dL (31.6-35.5); Mean Corpuscular Hemoglobin 26.8 pg (28.0-33.3); Mean Corpuscular Volume 84.6 fL (83.0-100.0); Mean Platelet Volume 11.6 fL (9.4-12.4); Monocytes # 1.2 K/mcL (0.0-1.3); Monocytes % 9.6 %; Neutrophils # 9.8 K/mcL (1.6-8.9); Platelet Count 195 K/mcL (140-400); Red Blood Count 3.77 M/mcL (4.19-5.50); Red Cell Distribution Width 17.6 % (11.5-14.5); Segmented Neutrophils % 76.1 %
[2016-12-31 06:01] LABS: Potassium 3.6 mEq/L (3.5-4.5)
[2016-12-31] MEDS: Aspirin Enteric Coated 81 MG Tablet PO SCH (08:48)
[2016-12-31] MEDS: Cholecalciferol (D-3) 1,000 UNIT TABLET PO SCH (08:48)
[2016-12-31] MEDS: Lactobacillus 1 EACH CAP.SPRINK PO SCH (08:48)
--- NOTE | 2016-12-31 09:00 | Cardiology Consult Note ---
Date of Encounter: 12/31/16 Time of Encounter: 08:30 Assessment and Plan (1) Systolic CHF Current Visit: Yes Status: Acute Newly diagnosed systolic CHF. TTE 12/29/16: EF 35-40%, moderate global LV systolic dysfunction, mild to moderate MR Most recent TTE at [facility] 2016 demonstrated preserved LVEF, 50-55%. ESRD on HD; s/p right thoracentesis (1.5 L) on 12/30/16. Mild fluid overload on exam. Post thoracentesis CXR: residual right effusion, left-sided effusion unchanged (small). BNP >5000. Continue coreg, will add ACEi. Volume mgmt per HD. Recommend ischemic evaluation--LHC with possible PCI. Patient/ request transfer to [facility]; CABG at [facility] in and recent thoracoadominal aneurysm repair at [facility] November 2016. If patient/ decide to stay at [facility], please re-consult. Qualifiers: Congestive heart failure chronicity: acute Qualified Code(s): I50.21 - Acute systolic (congestive) heart failure (2) CAD (coronary artery disease) Current Visit: Yes Status: Chronic 3vCABG at [facility] on 08/30/16. Mild, adynamic troponin elevation upon presentation. Chest pain free. Non- specific ST/T wave changes. Asa, plavix, betablocker. Allergy to statin. Qualifiers: Coronary Disease-Associated Artery/Lesion type: bypass graft [place] vs. transplanted heart: pic[place]une heart Associated angina: without angina Qualified Code(s): I25.810 - Atherosclerosis of coronary artery bypass graft(s) without angina pectoris (3) ESRD (end stage renal disease) on dialysis Current Visit: Yes Status: Acute HD on MWF. Nephrology following. (4) AAA (abdominal aortic aneurysm) Current Visit: Yes Status: Chronic s/p thoracoabdominal aneurysm repair at [facility] on 11/19/16. Continue asa and plavix. Qualifiers: Presence of rupture: without rupture Qualified Code(s): I71.4 - Abdominal aortic aneurysm, without rupture Discussion w patient/family: The assessment and plan as outlined above was discussed with the patient and/or family members who expressed understanding and agreement. All questions were answered. Thank you for involving us in the care of your patient. Please call with any questions. The patient will be discussed and reviewed with Dr. Cramer; changes to be made accordingly. History of Present Illness Consult date: 12/31/16 Requesting physician: Marcos Hernández Consult reason: acute CHF Chief complaint: Shortness of breath History of present illness: Mr. Rea is a 71 year old male with PMH significant for CAD s/p 3v CABG at [facility], HTN, HLD, ESRD on HD, DMII, TIA, and recent endovascular repair of thoracoabdominal aneurysm who presented to [facility] with persistent shortness of breath for the past month. Reports dyspnea occurs with minimal exertion, symptoms improve with rest. Reports stable, unchanged orthopnea. Associated symptoms include mild ankle swelling. He denies any other symptoms including dizziness, syncope, chest pain/discomfort, or palpitations. He denies PCI or stenting post bypass. [facility] records reviewed. Recent procedures/testin11/19/16: Endovascular repair of thoracoabdominal aneurysm without rupture 08/30/16: 3v CABG (CLINE-LAD, reverse SVG to OM, and reverse SVG-RCA). 08/23/16: TTE EF 50-55%, normal RV, no significant valvular dysfunction Past Med Surg Social Fam HX - Past Medical History Attestation: Yes The following information was validated with the patient. Source: patient, old records reviewed Medical history: COPD, coronary artery disease, diabetes, dialysis, GERD, hyperlipidemia, hypertension, myocardial infarction, renal disease, TIA Psychiatric history: anxiety - Past Surgical History Surgical History: appendectomy, coronary bypass (CABG), other (Thoracoabdominal aneurysm repair (without rupture) on 11/19/16. ) - Social History Smoking Status: Former smoker Smokeless Tobacco Status: No Alcohol use: none Drug use: none - Family History Father Name: Anibal Rea Jr Family Member Ethnicity: Non- Living Status: Cause of : renal failure Hx Family Cardiac Disorders: Yes Hx Family Respiratory Disorders: No Hx Family Cancer: No Hx Family GI Disorders: No Hx Family Genitourinary Disorders: No Hx Family Endocrine Disorder: Yes Hx Family Musculoskeletal Disorders: No Hx Family Neuromuscular Disorders: No Hx Family Neurologic Disorders: No Hx Family HEENT Disorders: No Hx Family Autoimmune Disorders: No Hx Family Reproductive Disorders: No Hx Family Psychosocial Disorders: No Hx Family Medical Disorders: No Medications and Allergies Amlodipine Besylate 10 mg PO DAILY 10/22/16 [History] Aspirin Enteric Coated [Aspirin EC] 81 mg PO DAILY 10/22/16 [History] Calcitriol [Rocaltrol] 0.25 mcg PO DAILY 10/22/16 [History] Calcium Acetate [Phos-LO] 667 mg PO TIDWM 10/22/16 [History] Carvedilol 12.5 mg PO BID 10/22/16 [History] Clopidogrel [Plavix] 75 mg PO DAILY 10/22/16 [History] Docusate [Colace] 100 mg PO BID PRN 10/22/16 [History] Ergocalciferol (VITAMIN D2) [Vitamin D2] 2,000 unit PO BID 10/22/16 [History] HYDROcodone/Acet 5/325 mg [[place] 5-325 mg] 1 tab PO Q4H PRN 10/22/16 [History] Hydroxychloroquine [Plaquenuil] 200 mg PO BID 10/22/16 [History] Montelukast [Singulair] 10 mg PO HS 10/22/16 [History] Multivitamin [Multivitamins] 1 each PO DAILY 10/22/16 [History] Polyethylene Glycol 3350 [MiraLAX Powder Bulk 17.9 Oz] 1 scoop PO BID PRN [History] Albuterol Sulfate [Albuterol Inhaler] 2 puff IH Q4H PRN 12/29/16 [History] Citalopram Hydrobromide [Citalopram HBr] 40 mg PO DAILY 12/29/16 [History] Allergies [id number] Reductase Inhibitor [Statins] Allergy (Verified 08/22/16 21:47) Cramping of the Muscles All Systems Review: A 10-system review of systems was performed and is negative for pertinent findings except as documented above in the HPI. - Cardiovascular Cardiovascular: as per HPI Physical Examination Vital Signs, Last 4 Hours Temp Pulse Resp BP Pulse Ox 12/31/16 08:48 97.3 F L 73 20 170/81 95 12/31/16 05:12 98.5 F 72 16 166/75 92 General: Conversant, No Apparent Distress HEENT: Normocephaly, Mucus Membranes Moist, Other (right orbital bruise) Cardiac: Reg Rate and Rhythm, Normal S1 and S2 Lungs: Other (Diminished bibasilar, rales throughout) Neuro: Alert and responsive Abdomen: Soft Skin: Other (left lower arm AV fistula) Extremities: No Edema, Normal Pulses Results 12/31/16 05:11 12/31/16 05:11 Lab Results 12/30/16 12/31/16 12/31/16 04:40 05:11 05:11 WBC 12.9 H Hgb 10.1 L Hct 31.9 L Plt Count 195 Sodium 136 Potassium 3.6 Chloride 96 L Carbon Dioxide 26 BUN 36 H Creatinine 4.32 H Glucose 93 Calcium 9.0 Total Bilirubin 0.8 AST 18 ALT 13 Alkaline Phosphatase 67 Active Medications Albuterol/Ipratropium (Duoneb) 3 ml IH [id number] PRN; Protocol PRN Reason: Shortness Of Breath/Wheezing Stop: 06/30/17 09:02 Aspirin (Aspirin Ec) 81 mg PO DAILY [facility] Stop: 06/30/17 09:01 Last Admin: 12/31/16 08:48 Dose: 81 mg Carvedilol (Coreg) 12.5 mg PO BIDWM [facility] Stop: 06/30/17 09:01 Last Admin: 12/31/16 08:49 Dose: 12.5 mg Citalopram Hydrobromide (Celexa) 20 mg PO DAILY [facility] Stop: 06/30/17 09:01 Last Admin: 12/31/16 08:48 Dose: 20 mg Clopidogrel Bisulfate (Plavix) 75 mg PO DAILY [facility] Stop: 06/30/17 09:01 Last Admin: 12/31/16 08:48 Dose: 75 mg Docusate Sodium (Colace) 100 mg PO BID PRN; Protocol PRN Reason: Constipation Stop: 06/30/17 07:54 Guaifenesin (Mucinex) 600 mg PO BID [facility] Stop: 06/30/17 09:16 Last Admin: 12/31/16 08:49 Dose: 600 mg Heparin Sodium (Porcine) (Heparin) 5,000 unit SQ Q8H [facility] Stop: 06/30/17 06:01 Last Admin: 12/31/16 05:43 Dose: 5,000 unit Hydralazine HCl (Hydralazine) 50 mg PO Q8HR [facility] Stop: 07/02/17 00:01 Last Admin: 12/31/16 08:48 Dose: 50 mg Hydralazine HCl (Hydralazine) 10 mg IVP Q6HR PRN PRN Reason: SBP>150 Stop: 07/02/17 10:07 Hydroxychloroquine Sulfate (Plaquenuil) 200 mg PO BID [facility] Stop: 06/30/17 09:01 Last Admin: 12/31/16 08:48 Dose: 200 mg Sodium Chloride (0.9 % Sodium Chloride) 1,000 mls @ 0 mls/hr PRIME .Q0M [facility]Y PRN Reason: As Directed Stop: 06/30/17 17:01 Sodium Chloride (0.9 % Sodium Chloride) 250 mls @ 937.5 mls/hr IVC .Q16M PRN PRN Reason: Hypotension Stop: 07/01/17 09:44 Piperacillin Sod/Tazobactam (Sod 3.375 gm/ Dextrose) 100 mls @ 25 mls/hr IVPB Q12HR [facility]Y PRN Reason: Protocol Stop: 07/01/17 18:01 Last Admin: 12/31/16 05:43 Dose: 25 mls/hr Vancomycin HCl 1 each/ (Dextrose) 250 mls @ 167 mls/hr IVPB RPHPROT ARY PRN Reason: Protocol Stop: 07/01/17 15:01 Lactobacillus Acidophilus/Rhamnosus (Culturelle) 1 each PO BID [facility] Stop: 06/30/17 09:01 Last Admin: 12/31/16 08:48 Dose: 1 each Montelukast Sodium (Singulair) 10 mg PO QPM [facility] Stop: 06/30/17 18:01 Last Admin: 12/30/16 17:08 Dose: 10 mg Naloxone HCl (Narcan) 0.4 mg IVP Q2MIN PRN PRN Reason: Opioid Reversal Stop: 06/30/17 00:36 Vitamin D (Vitamin D) 1,000 unit PO BID [facility] Stop: 06/30/17 09:01 Last Admin: 12/31/16 08:48 Dose: 1,000 unit - Imaging and Cardiology Chest Xray: report reviewed Echo: report reviewed Other Results: 12 hour tele: avg HR=70 SR. No significant event noted. - EKG Interpretation EKG results cardiology: personally reviewed Consult Discharge Plan - Plan Referrals: Levon Anne DO [Primary Care Provider] - 01/07/17 1:30 pm (Web Requested 12/29/16 )
--- NOTE | 2016-12-31 09:45 | Transfer Summary ---
Date of Encounter: 12/31/16 Time of Encounter: 09:45 Transfer Discharge Sum: Diag - Discharge Diagnosis (1) CAD (coronary artery disease) Status: Acute (2) CHF exacerbation Status: Acute (3) CKD (chronic kidney disease), stage V Status: Acute (4) Diabetes mellitus Status: Acute (5) DVT prophylaxis Status: Acute (6) Pleural effusion Status: Acute Transfer Discharge Sum: Med - Medications Active and Home Medications: Home Medications Amlodipine Besylate 10 mg PO DAILY 10/22/16 [History Confirmed 12/29/16] Aspirin Enteric Coated [Aspirin EC] 81 mg PO DAILY 10/22/16 [History Confirmed 12/29/16] Calcitriol [Rocaltrol] 0.25 mcg PO DAILY 10/22/16 [History Confirmed 12/29/16] Calcium Acetate [Phos-LO] 667 mg PO TIDWM 10/22/16 [History Confirmed 12/29/16] Carvedilol 12.5 mg PO BID 10/22/16 [History Confirmed 12/29/16] Clopidogrel [Plavix] 75 mg PO DAILY 10/22/16 [History Confirmed 12/29/16] Docusate [Colace] 100 mg PO BID PRN 10/22/16 [History Confirmed 12/29/16] Ergocalciferol (VITAMIN D2) [Vitamin D2] 2,000 unit PO BID 10/22/16 [History Confirmed 12/29/16] HYDROcodone/Acet 5/325 mg [[place] 5-325 mg] 1 tab PO Q4H PRN 10/22/16 [History Confirmed 12/29/16] Hydroxychloroquine [Plaquenuil] 200 mg PO BID 10/22/16 [History Confirmed ] Montelukast [Singulair] 10 mg PO HS 10/22/16 [History Confirmed 12/29/16] Multivitamin [Multivitamins] 1 each PO DAILY 10/22/16 [History Confirmed ] Polyethylene Glycol 3350 [MiraLAX Powder Bulk 17.9 Oz] 1 scoop PO BID PRN [History Confirmed 12/29/16] Albuterol Sulfate [Albuterol Inhaler] 2 puff IH Q4H PRN 12/29/16 [History Confirmed 12/29/16] Citalopram Hydrobromide [Citalopram HBr] 40 mg PO DAILY 12/29/16 [History Confirmed 12/29/16] Active Medications Albuterol/Ipratropium (Duoneb) 3 ml IH [id number] PRN; Protocol PRN Reason: Shortness Of Breath/Wheezing Stop: 06/30/17 09:02 Aspirin (Aspirin Ec) 81 mg PO DAILY [facility] Stop: 06/30/17 09:01 Last Admin: 12/31/16 08:48 Dose: 81 mg Carvedilol (Coreg) 12.5 mg PO BIDWM [facility] Stop: 06/30/17 09:01 Last Admin: 12/31/16 08:49 Dose: 12.5 mg Citalopram Hydrobromide (Celexa) 20 mg PO DAILY [facility] Stop: 06/30/17 09:01 Last Admin: 12/31/16 08:48 Dose: 20 mg Clopidogrel Bisulfate (Plavix) 75 mg PO DAILY [facility] Stop: 06/30/17 09:01 Last Admin: 12/31/16 08:48 Dose: 75 mg Docusate Sodium (Colace) 100 mg PO BID PRN; Protocol PRN Reason: Constipation Stop: 06/30/17 07:54 Guaifenesin (Mucinex) 600 mg PO BID [facility] Stop: 06/30/17 09:16 Last Admin: 12/31/16 08:49 Dose: 600 mg Heparin Sodium (Porcine) (Heparin) 5,000 unit SQ Q8H [facility] Stop: 06/30/17 06:01 Last Admin: 12/31/16 05:43 Dose: 5,000 unit Hydralazine HCl (Hydralazine) 50 mg PO Q8HR [facility] Stop: 07/02/17 00:01 Last Admin: 12/31/16 08:48 Dose: 50 mg Hydroxychloroquine Sulfate (Plaquenuil) 200 mg PO BID [facility] Stop: 06/30/17 09:01 Last Admin: 12/31/16 08:48 Dose: 200 mg Sodium Chloride (0.9 % Sodium Chloride) 1,000 mls @ 0 mls/hr PRIME .Q0M ARY PRN Reason: As Directed Stop: 06/30/17 17:01 Sodium Chloride (0.9 % Sodium Chloride) 250 mls @ 937.5 mls/hr IVC .Q16M PRN PRN Reason: Hypotension Stop: 07/01/17 09:44 Piperacillin Sod/Tazobactam (Sod 3.375 gm/ Dextrose) 100 mls @ 25 mls/hr IVPB Q12HR [facility] PRN Reason: Protocol Stop: 07/01/17 18:01 Last Admin: 12/31/16 05:43 Dose: 25 mls/hr Vancomycin HCl 1 each/ (Dextrose) 250 mls @ 167 mls/hr IVPB RPHPROT [facility]Y PRN Reason: Protocol Stop: 07/01/17 15:01 Lactobacillus Acidophilus/Rhamnosus (Culturelle) 1 each PO BID [facility] Stop: 06/30/17 09:01 Last Admin: 12/31/16 08:48 Dose: 1 each Montelukast Sodium (Singulair) 10 mg PO QPM [facility] Stop: 06/30/17 18:01 Last Admin: 12/30/16 17:08 Dose: 10 mg Naloxone HCl (Narcan) 0.4 mg IVP Q2MIN PRN PRN Reason: Opioid Reversal Stop: 06/30/17 00:36 Vitamin D (Vitamin D) 1,000 unit PO BID [facility] Stop: 06/30/17 09:01 Last Admin: 12/31/16 08:48 Dose: 1,000 unit Transfer Discharge Sum: Data Procedures and tests throughout hospitalization: Pending Orders 12/29/16 00:39 Consult to Nephrology [CONS] Routine 12/29/16 07:53 Docusate [Colace] 100 mg PO BID PRN 12/29/16 09:00 Aspirin Enteric Coated [Aspirin EC] 81 mg PO DAILY Carvedilol [Coreg] 12.5 mg PO BIDWM Cholecalciferol (D-3) [Vitamin D] 1,000 unit PO BID Citalopram [CeleXA] 20 mg PO DAILY Clopidogrel [Plavix] 75 mg PO DAILY Hydroxychloroquine [Plaquenuil] 200 mg PO BID Lactobacillus [Culturelle] 1 each PO BID 12/29/16 09:01 Ipratropium/Albuterol Neb [Duoneb] 3 ml IH [id number] PRN 12/29/16 09:15 GuaiFENesin ER [Mucinex] 600 mg PO BID 12/29/16 16:46 Communication order [RC] ONCE Hemodialysis Blood Flow Rate Routine Fistula Needle Insertion Routine 12/29/16 17:00 Dialysis Bath Order ONCE Dialysis Ultrafiltration ONCE Hemodialysis Access for Treatment ONCE Hemodialysis SBP/MAP ONCE Consult to Dialysis [CONS] ONCE 0.9 % Sodium Chloride 1,000 ml PRIME As Directed Decrease UF Rate ONCE Dialysate Flow Rate ONCE Dialysate Flow Rate ONCE Dialysate Temp ONCE Dialyzer ONCE Hemodialysis ONCE 12/29/16 18:00 Montelukast [Singulair] 10 mg PO QPM 12/30/16 06:25 BIPAP [RC] .ONCE 12/30/16 06:26 BIPAP/CPAP On/Off Times [RC] ONCE RT has an order or consult [RC] NOW 12/30/16 07:00 Consult to Interventional Radiology [CONS] Routine 12/30/16 09:15 Adenosine Deaminase,PLF Stat Culture,Body Fluid [RM] Stat 12/30/16 09:24 VITALS [Post-op Vital Signs] [RC] .Q30M X2 12/30/16 09:43 Communication order [RC] ONCE Hemodialysis Blood Flow Rate Routine 0.9 % Sodium Chloride 250 ml IVC 937.5 mls/hr Fistula Needle Insertion Routine Hemodialysis Catheter Packing Stat 12/30/16 09:45 Dialysis Bath Order ONCE Dialysis Ultrafiltration ONCE Hemodialysis Access for Treatment ONCE Hemodialysis Heparinization ONCE Hemodialysis SBP/MAP ONCE Consult to Dialysis [CONS] ONCE Decrease UF Rate ONCE Dialysate Flow Rate ONCE Dialysate Temp ONCE Dialyzer ONCE Hemodialysis ONCE 12/30/16 15:00 Vancomycin [Vancocin] 1 each D5% in Water [Dextrose 5%] 250 ml IVPB RPHPROT 12/30/16 18:00 Piperacillin/Tazobactam [Zosyn] 3.375 gm D5% in Water (Mini-Bag+) [Dextrose 5 % (Minibag+) 100 ML] 100 ml IVPB Q12HR 12/30/16 Dinner Dietary Supplement Fluid Restriction Diet Renal Diet 12/31/16 00:00 hydrALAZINE [HydrALAZINE] 50 mg PO Q8HR 12/31/16 07:00 Consult to Cardiology [CONS] Routine 01/01/17 04:00 Vancomycin,Trough AM 0400 - Impressions ITS Impressions Thoracentesis Ultrasound 12/30/16 00:00 IMPRESSION: Successful ultrasound guided thoracentesis. D/ / Ramu Aponte MD / Ramu Aponte MD Interpreting Provider: Ramu Aponte MD Chest X-Ray 12/30/16 09:16 IMPRESSION: 1. Right central venous catheter unchanged in position. 2. Slight decrease in size in right-sided pleural effusion with unchanged left pleural effusion. 3. Persistently enlarged cardiac silhouette with prominence of the pulmonary vasculature. 4. No evidence of pneumothorax. D/ / Rohit Graham MD / Rohit Graham MD Interpreting Provider: Rohit Graham MD Transfer Discharge Sum: Prov Date of admission: 12/29/16 00:35 Primary care physician: Bj Sy Consults: 12/29/16 00:39 Consult to Nephrology [CONS] Routine Consulting Provider: Kidney Zaina/AGNIESZKA/GRIFFIN/AKIKO Reason for Consult: ESRD on HD - volume overload Call Completed: No 12/29/16 17:00 Consult to Dialysis [CONS] ONCE 12/30/16 07:00 Consult to Interventional Radiology [CONS] Routine Consulting Provider: Radiology Interventional Cols Reason for Consult: pleural effusion, possible thoracentesis Call Completed: No 12/30/16 09:45 Consult to Dialysis [CONS] ONCE 12/31/16 07:00 Consult to Cardiology [CONS] Routine Comment: Consulting Provider: Cardiology Zaina Reason for Consult: drop in EF, current 35-40, pior echo at [facility] EF 55-60%. H/ O CAD CABG Call Completed: No Attending physician on discharge: Coni Cortez Discharging clinician: Coni Cortez Anticipated date of transfer: 12/31/16 Receiving physician/facility: [facility] Transfer Discharge Sum: A/P - Plan Cognitive capacity at transfer: AAO x 3 Functional capacity at transfer: independent ambulation Overall status at transfer: patient is progressing back to baseline Disposition: Transfer Other Transfer Discharge Sum: Hosp Hospital course: Mr. Rea is a 71 year old male with PMH of CAD s/p CABG, ESRD on HD (MWF), CHF who was admitted for shortness of breath and was found to have bilateral pleural effusions. He underwent right thoracentesis which was consistent with transudative effusion. He was also noted to have worsening of CHF with EF of 35- 40% which is a change from an EF of 55-60% earlier this year. Pt is currently saturating well on nasal cannula and is undergoing his hemodialysis sessions as well.Cardiology consultation was requested and patient will benefit from [facility]. As per patient and family's request, transfer to [facility] was initiated. Patient and family are willing to cover the cost of transfer at this time. Awaiting bed availability for transfer to [facility]. - Time Spent with Patient Total time spent providing and/or coordinating transfer services: Greater than 30 minutes Transfer Discharge Sum: Exam - Constitutional Vitals: Vital Signs Temp Pulse Resp BP Pulse Ox 12/31/16 08:48 97.3 F L 73 20 170/81 95 12/31/16 05:12 98.5 F 72 16 166/75 92 12/31/16 00:22 98.4 F 72 16 151/69 97 12/30/16 19:24 97.6 F 70 18 144/66 97 12/30/16 15:40 97.6 F 77 18 176/84 94 12/30/16 13:20 97.7 F 16 150/87 12/30/16 13:15 148/87 12/30/16 13:00 134/80 12/30/16 12:45 129/62 12/30/16 12:30 117/81 12/30/16 12:15 122/66 12/30/16 12:00 140/78 12/30/16 11:45 144/81 12/30/16 11:30 138/87 12/30/16 11:15 143/78 12/30/16 11:00 146/83 12/30/16 10:45 141/73 12/30/16 10:30 150/83 12/30/16 10:15 97.7 F 16 141/80 Intake and Output 12/30/16 12/31/16 12/31/16 23:59 07:59 15:59 Intake Total 340 / 340 150 / 150 Balance 340 / 340 150 / 150 Intake: IV Fluids 100 / 100 Zosyn 3.375 GM In 100 / 100 Dextrose 5% (Minibag+) 100 ML 100 ML @ 25 mls/hr IVPB Q12HR [facility] Rx#: [id number] Oral 240 / 240 150 / 150 Other: Meal Dinner Percent of Meal Consumed 20% Weight 78.8 kg Blood Glucose* 110 110 Patient Weight 12/31/16 23:59 Weight 78.8 kg General appearance: no acute distress - Head Head exam: Present: atraumatic, normocephalic - Eye Eye exam: Present: normal appearance - Respiratory Additional comments: bibasilar crackles - Cardiovascular Cardiovascular exam: Present: RRR, +S1, +S2 - GI/Abdominal GI/Abdominal exam: Present: normal bowel sounds, soft - Extremities Exam Extremities exam: Absent: calf tenderness, pedal edema, tenderness - Neurological Exam Neurological exam: Present: oriented X3 - Psychiatric Psychiatric exam: Present: normal mood
--- NOTE | 2016-12-31 09:46 | Nephrology Progress Note ---
Date of Encounter: 12/31/16 Time of Encounter: 09:44 - Assessment and Plan (1) ESRD (end stage renal disease) on dialysis Current Visit: Yes Status: Acute Plan for HD tomorrow Continue renal diet and fluid restriction Avoid nephrotoxins if possible Patient is very compliant with his dialysis treatments (2) CHF exacerbation Current Visit: Yes Status: Acute per cardiology/primary team Qualifiers: Congestive heart failure type: unspecified congestive heart failure type Qualified Code(s): I50.9 - Heart failure, unspecified (3) Anemia Current Visit: Yes Status: Chronic Stable Goal hgb 10-11 Qualifiers: Anemia type: unspecified type Qualified Code(s): D64.9 - Anemia, unspecified Subjective Principal diagnosis: ESRD Interval history: Patient seen and examined. at bedside. Patient feeling better. Objective - Vital Signs Vital signs: Vital Signs Temp Pulse Resp BP Pulse Ox 12/31/16 08:48 97.3 F L 73 20 170/81 95 12/31/16 05:12 98.5 F 72 16 166/75 92 12/31/16 00:22 98.4 F 72 16 151/69 97 12/30/16 19:24 97.6 F 70 18 144/66 97 12/30/16 15:40 97.6 F 77 18 176/84 94 12/30/16 13:20 97.7 F 16 150/87 12/30/16 13:15 148/87 12/30/16 13:00 134/80 12/30/16 12:45 129/62 12/30/16 12:30 117/81 12/30/16 12:15 122/66 12/30/16 12:00 140/78 12/30/16 11:45 144/81 12/30/16 11:30 138/87 12/30/16 11:15 143/78 12/30/16 11:00 146/83 12/30/16 10:45 141/73 12/30/16 10:30 150/83 12/30/16 10:15 97.7 F 16 141/80 Intake and Output 12/30/16 12/31/16 12/31/16 23:59 07:59 15:59 Intake Total 340 / 340 150 / 150 Balance 340 / 340 150 / 150 Intake: IV Fluids 100 / 100 Zosyn 3.375 GM In 100 / 100 Dextrose 5% (Minibag+) 100 ML 100 ML @ 25 mls/hr IVPB Q12HR [facility] Rx#: [id number] Oral 240 / 240 150 / 150 Other: Meal Dinner Percent of Meal Consumed 20% Weight 78.8 kg Blood Glucose* 110 110 Patient Weight 12/31/16 23:59 Weight 78.8 kg - General Appearance General appearance: Present: chronically ill EENT: Present: ATNC, mucous membranes moist, hearing intact, vision intact Neck: Present: supple Respiratory: Present: clear (decreased throughout) Cardiology: Present: no edema, normal S1, normal S2 Dialysis Vascular Access: Venous Catheter Gastrointestinal: Present: no tenderness, no guarding Integumentary: Present: warm and dry Neurologic: Present: alert and oriented x3 Psychiatric: Present: mood/affect appropriate, cooperative - Lab 12/31/16 05:11 12/31/16 05:11 Most recent lab results ABG pH 7.51 pH Units (7.32-7.45) H 12/29/16 17:50 ABG pCO2 31 mmHg (35-45) L 12/29/16 17:50 ABG pO2 69 mmHg (85-104) L 12/29/16 17:50 ABG HCO3 24.7 mEQ/L (21-27) 12/29/16 17:50 ABG O2 Saturation 95 % (95-98) 12/29/16 17:50 Calcium 9.0 mg/dL (8.6-10.8) 12/31/16 05:11 Magnesium 2.1 mg/dL (1.6-2.6) 12/29/16 01:03 Consult Discharge Plan - Plan Referrals: Levon Anne DO [Primary Care Provider] - 01/07/17 1:30 pm (Web Requested 12/29/16 )
[2016-12-31 16:36] VITALS: BP 162/74
[2016-12-31] MEDS ORDERED: Calcium Acetate 667 MG CAPSULE PO SCH (17:00)
[2016-12-31] MEDS ORDERED: Aminoglycoside Consult 1 EACH MC ONE (17:55)
== END 2016-12-31 17:56 | disposition other institution (70) | DRG 291 ==
LOC: EMEROO 19:53 → 2ANU 19:53 → SUATTDRO 12-29 00:35
PROVIDERS: ADMIT Internal Medicine; ATTEND Internal Medicine

== ENCOUNTER 2018-05-25 07:38 | Inpatient (IN) ==
--- NOTE | 2018-05-25 08:11 | Emergency Department Note ---
Disposition Clinical Impression: Dyspnea Qualifiers: Qualified Code(s): R06.00 - Disposition: Admitted As Inpatient Condition: Fair SOB HPI - General Chief Complaint: ED Shortness of Breath/Dyspnea Stated Complaint: SOB Time Seen by Provider: 05/25/18 07:43 Source: patient, EMS Limitations: no limitations Nursing Notes Reviewed: Yes Vital Signs Reviewed: Yes - History of Present Illness History source: Patient is unable to provide information for this note. Info was gathered from the patient, hospital staff, the patient's chart. History limitations: Patient condition Medications: As per nurses note 73-year-old male brought to the emergency department from the [place] for further evaluation of his shortness of breath. Patient apparently had O2 saturations in the low 80s at the [place]. He is a dialysis patient with Dr. Schwartz and usually receives dialysis Friday and Friday. He does still urinate small amounts. Patient is scheduled for dialysis later this morning. Patient is unable to give an adequate history regarding his case and presentation. However he denies fever, chills, cough, abdominal pain, back pain, neurologic weakness. - Related Data Home Medications Medication Instructions Recorded Confirmed Amlodipine Besylate 10 mg PO DAILY 10/22/16 05/25/18 Aspirin Enteric Coated [Aspirin EC] 81 mg PO DAILY 10/22/16 05/25/18 Montelukast [Singulair] 10 mg PO HS 10/22/16 05/25/18 Albuterol Sulfate [Albuterol 2 puff IH Q4-6H PRN 10/30/17 05/25/18 Inhaler] Carvedilol [Coreg] 25 mg PO BID 10/30/17 05/25/18 Acetaminophen [Tylenol 8 Hour] 650 mg PO Q8H PRN 02/05/18 05/25/18 Clopidogrel [Plavix] 75 mg PO DAILY 02/05/18 05/25/18 LevETIRAcetam [Roweepra] 500 mg PO HS 02/05/18 02/05/18 Melatonin [Melatin] 6 mg PO HS 02/05/18 02/05/18 Sevelamer [Renvela] 1,600 mg PO TIDWM 02/05/18 02/05/18 Tiotropium [Spiriva] 18 mcg IH 0700 02/05/18 02/05/18 Calcium Acetate [Phos-LO] 667 mg PO TIDWM 05/25/18 05/25/18 Folic Acid/Vit B Complex and C 1 tab PO DAILY 05/25/18 05/25/18 [Dialyvite Tablet] Hydroxychloroquine [Plaquenuil] 200 mg PO DAILY 05/25/18 05/25/18 Lisinopril [Lisinopril] 2.5 mg PO DAILY 05/25/18 05/25/18 Melatonin 10 mg PO HS PRN 05/25/18 05/25/18 Nitroglycerin [Nitrostat] 0.4 mg SL AD 05/25/18 05/25/18 Ranitidine HCl [Acid Steel Pickler] 150 mg PO HS 05/25/18 05/25/18 Rosuvastatin Calcium [Crestor] 10 mg PO DAILY 05/25/18 05/25/18 Previous Rx's Medication Instructions Recorded OxyCODONE/APAP 5/325 [Percocet 1 each PO Q6HR PRN 7 Days #7 tablet 02/05/18 5/325 MG] All systems ED: reviewed and negative except as stated. Review of Systems: As Per HPI Past Medical History - Past Medical History Attestation: Yes The following information was validated with the patient. Source: patient Medical history: Reports: CHF, COPD, coronary artery disease, diabetes, dialysis , hyperlipidemia, hypertension, myocardial infarction, renal disease, TIA Surgical history: Reports: appendectomy, coronary bypass (CABG), other Psychiatric history: Reports: anxiety, depression - Social History Smoking Status: Former smoker Smokeless Tobacco Status: No Alcohol use: Reports: none Drug use: Reports: none Physical Exam General: Alert and in no acute distress Skin: Warm, dry, intact Head: Normocephalic and atraumatic Neck: Supple, trachea midline and no tenderness Cardiovascular: RRR, no murmur, normal perfusion Respiratory: Patient decreased lung sounds in the bilateral lower lung perez with crackles on the right more than left. Musculoskeletal: Normal strength, no tenderness, swelling or deformity GI: Soft, nontender, nondistended. Bowel sounds present Neuro: Alert and oriented to person and place. Psychiatric: cooperative and appropriate mood and affect. - General Limitations: no limitations General appearance: alert, in no apparent distress Course Vital Signs Temperature 98.3 F 05/25/18 07:44 Pulse Rate 84 05/25/18 07:44 Respiratory Rate 20 05/25/18 07:44 Blood Pressure 163/76 05/25/18 07:44 O2 Sat by Pulse Oximetry 94 05/25/18 07:44 Temperature 99.2 F 05/26/18 07:33 Pulse Rate 67 05/26/18 07:33 Respiratory Rate 18 05/26/18 07:33 Blood Pressure 171/70 05/26/18 07:33 O2 Sat by Pulse Oximetry 96 05/26/18 07:33 Oxygen Delivery Oxygen Delivery Nasal Cannula Shortness of Breath/Dyspnea - MDM Narrative Medical decision making narrative: Because of the patient's low O2 saturations and history of pneumonia he was sent to the emergency department to rule out pneumonia prior to dialysis session. - Medical Records Medical records reviewed: Yes I reviewed the patient's medical records. - Lab Data Lab results reviewed: Yes I reviewed the patient's lab results. Result diagrams: 05/26/18 05:01 05/26/18 05:01 Lab Results 05/25/18 05/25/18 05/25/18 Range/Units 08:05 08:05 08:05 WBC 8.9 (4.3-11.1) K/mcL RBC 3.00 L (4.19-5.50) M/mcL Hgb 9.1 L (12.9-16.9) g/dL Hct 29.6 L (37.5-50.1) % MCV 98.7 (83.0-100.0) fL MCH 30.3 (28.0-33.3) pg MCHC 30.7 L (31.6-35.5) g/dL RDW 13.4 (11.5-14.5) % Plt Count 191 (140-400) K/mcL MPV 10.7 (9.4-12.4) fL Immature Gran % 0.6 (0-4) % Seg Neutrophils % 82.0 % Lymphocytes % 6.1 % Monocytes % 7.1 % Eosinophils % 3.7 % Basophils % 0.5 % Neutrophils # 7.3 (1.6-8.9) K/mcL Lymphocytes # 0.5 L (0.6-4.6) K/mcL Monocytes # 0.6 (0.0-1.3) K/mcL Eosinophils # 0.3 (0.0-0.6) K/mcL Basophils # 0.0 (0.0-0.2) K/mcL ESR (0-10) mm/hr PT (9.4-12.1) Seconds INR APTT (26.0-36.0) Seconds Sodium 137 (136-145) mEq/L Potassium 4.5 (3.5-5.1) mEq/L Chloride 100 (98-107) mEq/L Carbon Dioxide 27 (23-29) mEq/L BUN 43 H (8-23) mg/dL Creatinine 5.28 H (0.70-1.30) mg/dL Est GFR ( Amer) 13 L (> 60) Est GFR (Non-Af Amer) 11 L (> 60) BUN/Creatinine Ratio 8 (6-26) Glucose 94 (70-105) mg/dL Calculated Osmolality 295 (280-300) Lactic Acid 0.8 (0.5-2.2) mmol/L Calcium 9.3 (8.6-10.3) mg/dL Total Bilirubin 0.4 (0.3-1.0) mg/dL Direct Bilirubin 0.2 (0.0-0.2) mg/dL Indirect Bilirubin 0.2 (0.0-1.2) mg/dL AST 13 (13-39) Units/L ALT 10 (7-52) Units/L Alkaline Phosphatase 104 (34-104) Units/L Troponin I 0.03 (< 0.04) ng/mL C-Reactive Protein 45 H (Less than 10) mg/L B-Natriuretic Peptide (Less than 100) pg/mL Serum Total Protein 7.0 (6.4-8.9) g/dL Albumin 3.7 (3.5-5.7) g/dL Globulin 3.3 (2.4-3.5) g/dL Albumin/Globulin Ratio 1.1 (1.1-2.2) 05/25/18 05/25/18 05/25/18 Range/Units 08:05 08:05 11:57 WBC (4.3-11.1) K/mcL RBC (4.19-5.50) M/mcL Hgb (12.9-16.9) g/dL Hct (37.5-50.1) % MCV (83.0-100.0) fL MCH (28.0-33.3) pg MCHC (31.6-35.5) g/dL RDW (11.5-14.5) % Plt Count (140-400) K/mcL MPV (9.4-12.4) fL Immature Gran % (0-4) % Seg Neutrophils % % Lymphocytes % % Monocytes % % Eosinophils % % Basophils % % Neutrophils # (1.6-8.9) K/mcL Lymphocytes # (0.6-4.6) K/mcL Monocytes # (0.0-1.3) K/mcL Eosinophils # (0.0-0.6) K/mcL Basophils # (0.0-0.2) K/mcL ESR 74 H (0-10) mm/hr PT 13.0 H (9.4-12.1) Seconds INR 1.2 APTT 34.6 (26.0-36.0) Seconds Sodium (136-145) mEq/L Potassium (3.5-5.1) mEq/L Chloride (98-107) mEq/L Carbon Dioxide (23-29) mEq/L BUN (8-23) mg/dL Creatinine (0.70-1.30) mg/dL Est GFR ( Amer) (> 60) Est GFR (Non-Af Amer) (> 60) BUN/Creatinine Ratio (6-26) Glucose (70-105) mg/dL Calculated Osmolality (280-300) Lactic Acid (0.5-2.2) mmol/L Calcium (8.6-10.3) mg/dL Total Bilirubin (0.3-1.0) mg/dL Direct Bilirubin (0.0-0.2) mg/dL Indirect Bilirubin (0.0-1.2) mg/dL AST (13-39) Units/L ALT (7-52) Units/L Alkaline Phosphatase (34-104) Units/L Troponin I (< 0.04) ng/mL C-Reactive Protein (Less than 10) mg/L B-Natriuretic Peptide 3176 H (Less than 100) pg/mL Serum Total Protein (6.4-8.9) g/dL Albumin (3.5-5.7) g/dL Globulin (2.4-3.5) g/dL Albumin/Globulin Ratio (1.1-2.2) - Radiology Data Radiology results reviewed: Yes I reviewed the patient's radiology results. - EKG Data EKG attestation: Yes I reviewed and interpreted this EKG. EKG results narrative: Normal sinus rhythm with a rate of 83 without evidence of STEMI or other dysrhythmia. Patient has flipped T waves in leads V5 and V6 which is consistent with previous EKG. QTC is 483, QRS 99.
[2018-05-25 08:22] LABS: Basophils % 0.5 %; Eosinophils # 0.3 K/mcL (0.0-0.6); Eosinophils % 3.7 %; Hematocrit 29.6 % (37.5-50.1); Hemoglobin 9.1 g/dL (12.9-16.9); Immature Granulocytes % 0.6 % (0-4); Lymphocytes # 0.5 K/mcL (0.6-4.6); Lymphocytes % 6.1 %; Mean Corpuscular HGB Conc 30.7 g/dL (31.6-35.5); Mean Corpuscular Hemoglobin 30.3 pg (28.0-33.3); Mean Corpuscular Volume 98.7 fL (83.0-100.0); Mean Platelet Volume 10.7 fL (9.4-12.4); Monocytes # 0.6 K/mcL (0.0-1.3); Monocytes % 7.1 %; Neutrophils # 7.3 K/mcL (1.6-8.9); Platelet Count 191 K/mcL (140-400); Red Cell Distribution Width 13.4 % (11.5-14.5)
[2018-05-25 08:42] LABS: Albumin 3.7 g/dL (3.5-5.7); Albumin/Globulin Ratio 1.1 (1.1-2.2); Bilirubin,Direct 0.2 mg/dL (0.0-0.2); Bilirubin,Indirect 0.2 mg/dL (0.0-1.2); Bilirubin,Total 0.4 mg/dL (0.3-1.0); Calcium 9.3 mg/dL (8.6-10.3); Globulin 3.3 g/dL (2.4-3.5); Potassium 4.5 mEq/L (3.5-5.1); Troponin I 0.03 ng/mL (< 0.04)
[2018-05-25] MEDS ORDERED: Isovue-370 500 ML INFUS..BTL IV ONE (08:54)
[2018-05-25] MEDS ORDERED: Naloxone 0.4 MG/ML INJ IVP PRN (11:08)
--- NOTE | 2018-05-25 11:23 | Internal Med History&Physical ---
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 Rea is a 73 year old male with history of CAD status post CABG, ESRD on HD ( MWF) multiple strokes with residual psychomotor retardation, spinal stenosis, unsteady gait presented to the emergency department from the [facility] after he was found to have shortness of breath. [facility] he was found to have low oxygen saturations in the 80s so was decided for him to be transferred to the emergency department. Patient does report that he woke up with increasing difficulty to breathe which has resolved since he was supplied with oxygen at [facility]. his SOb occured suddenly and not associated with palpitations or Chest pain. He reports that he has had a week worth of cough without any productive sputum, (denies hemoptysis)that has progressively worsened. He cannot recall aggravating factors but his symptoms are alleviated with oxygen via nasal cannula. he denies fever, chills, cough, abdominal pain, N/V/D, back pain, syncope, falls, chest trauma, falls, head trauma, extremity weakness, syncope, seizures. As per who is at bedside he was admitted to [facility] in October 2017 secondary to multiple falls and was discharged to the [facility] to receive physical therapy. He had developed dyspnea while at the [place] a few months ago and received thoracocentesis as per . i discussed code status with patietn and and daughter who is at bed side at length adn he is Axox3- wished to be DNR/DNI while in the ED CTPA was done- PE ruled out however it did show bilateral loculated pleural effusions, neophrology was consulted by the ED physician for HD ( he is scheduled MWF). basic labs showed normocytic anemia, elevated BNP > 3000 and he was endorsed for further management of dyspnea Past Med Surg Social Fam HX - Past Medical History Medical history: CHF, COPD, coronary artery disease, diabetes, dialysis, hyperlipidemia, hypertension, myocardial infarction, renal disease, TIA Additional medical history: descending aortic aneurysm. HEART CATH. ANEMIA. CATARACTS Psychiatric history: anxiety, depression - Past Surgical History Surgical History: appendectomy, coronary bypass (CABG), other Additional surgical history: HEART CATH - Social History Smoking Status: Former smoker Smokeless Tobacco Status: No Alcohol use: none Drug use: none - Family History Father Family Member Ethnicity: Non- Living Status: Hx Family Cardiac Disorders: Yes Hx Family Respiratory Disorders: No Hx Family Cancer: No Hx Family GI Disorders: No Hx Family Endocrine Disorder: Yes Hx Family Neuromuscular Disorders: No Hx Family Neurologic Disorders: No Hx Family HEENT Disorders: No Hx Family Autoimmune Disorders: No Mother Living Status: Hx Family Cardiac Disorders: Yes Hx Family Respiratory Disorders: No Hx Family Cancer: No Hx Family GI Disorders: No Hx Family Endocrine Disorder: No Hx Family Neuromuscular Disorders: No Hx Family Neurologic Disorders: No Hx Family HEENT Disorders: No Hx Family Autoimmune Disorders: No Internal Medicine - H&P: Meds Amlodipine Besylate 10 mg PO DAILY 10/22/16 [History] Aspirin Enteric Coated [Aspirin EC] 81 mg PO DAILY 10/22/16 [History] Montelukast [Singulair] 10 mg PO HS 10/22/16 [History] Albuterol Sulfate [Albuterol Inhaler] 2 puff IH Q4-6H PRN 10/30/17 [History] Carvedilol [Coreg] 25 mg PO BID 10/30/17 [History] Folic Acid/Vit B Complex and C [Dialyvite Tablet] 1 tab PO DAILY 10/30/17 [ History] Rosuvastatin Calcium [Crestor] 5 mg PO HS 10/30/17 [History] Acetaminophen [Tylenol 8 Hour] 650 mg PO Q8H PRN 02/05/18 [History] Clopidogrel [Plavix] 75 mg PO DAILY 02/05/18 [History] LevETIRAcetam [Roweepra] 500 mg PO HS 02/05/18 [History] Melatonin [Melatin] 6 mg PO HS 02/05/18 [History] OxyCODONE/APAP 5/325 [Percocet 5/325 MG] 1 each PO Q6HR PRN 7 Days #7 tablet [Rx] Sevelamer [Renvela] 1,600 mg PO TIDWM 02/05/18 [History] Tiotropium [Spiriva] 18 mcg IH 0700 02/05/18 [History] hydrALAZINE [HydrALAZINE] 25 mg PO Q6HR 02/05/18 [History] 3 Allergy/AdvReac Type Severity Reaction Status Date / Time Kxuhgch-[id number]-Adx Reductase AdvReac Cramping Verified 01/22/18 15:37 Inhibitor of the [Statins] Muscles All Systems PM: review of systems was performed and is negative for pertinent findings except as documented above in the HPI. - Constitutional Vitals: Temp Pulse Resp BP Pulse Ox 98.3 F 65 18 171/67 95 05/25/18 07:44 05/25/18 10:12 05/25/18 10:12 05/25/18 10:12 05/25/18 10:12 Exam: General: Patient is alert, oriented, no acute distress, no acute distress, slow psychomotor response ( baseline) Head: atraumatic, normocephalic, Eye: normal appearance, PERRL, no scleral icterus, no conjunctival injection ENT: mucous membranes moist, normal external ear exam Neck: normal inspection, trachea midline, full ROM, NO JVD Chest: normal inspection, symmetric chest rise, well healed CABG scar Respiratory: Good respiratory effort. decreased breasthsounds in the posterior lung perez with crackles, no wheezing Cardiovascular: Regular rate and rhythm. s1 and s2 No clicks, rubs, gallops, or murmors. Abdomen: Bowel sounds present normoactive x-4 quadrants. Abdomen is soft, nondistended. no Epigastric tenderness. No guarding or rebound. No organomegaly noted, obese musculoskeletal: Spontaneously moving all extremities. no edema, no calf tenderness Skin: warm, dry, intact. left forearm fistula with audible bruit adn palpable thrill Neuro: Alert and oriented x3 ( know s this is [facility], president is bev murillo, year is 2017) . Sensation light touch intact. Cranial nerves 2-12 is intact. left hand is contracted, strength is 5/5 in all extremities, slow psychomotor response ( baseline) Psych: Patient's affect is normal Internal Med - H&P Results - Labs CBC & Chem 7: 05/25/18 08:05 05/25/18 08:05 - EKG Data -: EKG Interpreted by Myself (sinus rhythm, LVH wih repolarization abnormalities , QT 483) - EKG Data Prior EKG available for review: yes When compared to previous EKG: there is no significant change - Assessment and plan (1) Acute respiratory failure with hypoxia Current Visit: Yes Status: Acute Assessment and plan: Patient presented from the [place] for dyspnea and was found to have O2 saturations in the low 80s at the [place]. Symptoms resolved with oxygen while in the ED Most likely secondary to bilateral loculated pleural effusions seen on CTPA Pulmonary embolism was ruled out in the emergency department BNP elevated 3176 Patient is due for dialysis today, nephrology was consulted- reported that he will have dialysis today IR and pulmonology were consulted for bilateral loculated pleural effusions seen on CTPA- will follow recommendations Continue nasal cannula and keep saturations above 92% Continue DuoNeb's Urine antigens ( still makes small amount of urine) , sputum cultures, blood cultures were ordered we will follow on vancomycin and Zosyn ( high risk for HAP as he has been at the [place] since october 2017) (2) Loculated pleural effusion Current Visit: Yes Status: Acute Assessment and plan: CTPA performed on 05/25/18 showed - Evidence of bilateral loculated effusions worse in the lower lobes and worse in the right lower lobe. Lower lobe atelectatic and/or consolidative changes worse in the right lower lobe. s/p thoracocentesis in 12/25- cytology showed, Lymphocytes, reactive mesothelial cells and macrophages seen. cx negative IR consulted for diagnostic and therapeutic thoracocentesis Pulmonology consulted will start him on vancomycin and zosyn ESR, CRP still makes urine- urine antigens ordered sputum cx ordered blood cx ordered (3) CAD (coronary artery disease) Current Visit: No Status: Chronic Assessment and plan: 3vCABG at [facility] on 08/30/16 thoracoadominal aneurysm repair at [facility] November 2016. as per he is on ASA and plavix continue BB and rest of medications if not CI patient allergic to statins Qualifiers: Coronary Disease-Associated Artery/Lesion type: bypass graft [place] vs. transplanted heart: [place] heart Associated angina: without angina Qualified Code(s): I25.810 - Atherosclerosis of coronary artery bypass graft(s) without angina pectoris (4) Acute on chronic HFrEF (heart failure with reduced ejection fraction) Current Visit: Yes Status: Acute Assessment and plan: TTE 05/20/17 Impressions: LVEF 45-50%. Normal LV chamber size, wall thickness and low normal/mildly reduced function. will order echocardiogram to assess LV function BNP 3176 nephrology on board for dialysis today rest of the management as per above (5) Goals of care, counseling/discussion Current Visit: Yes Status: Acute Assessment and plan: i had an extensive discussion with patient, and daughter were at bedside I discussed resuscitation measures such as mechanical ventilation and CPR in depth Patient is alert and oriented 3 and wishes to be DNR CCA DNI Family requested to be contacted if any acute events occur Emotional support provided Palliative care consulted (6) Spinal stenosis at L4-L5 level Current Visit: No Status: Acute Assessment and plan: history of multiple falls - last admitted at [facility] for evaluation of falls PT/OT currently strength is 5/5 in bilateral lower extremities fall precautions vitamin D MRI on 10/2016 Motion degraded study. Moderate multilevel degenerative changes of the lumbar spine is similar to prior. There is unchanged moderate spinal canal stenosis at L2-L3, and L3-L4. Multilevel neural foraminal narrowing, including severe right neural foraminal stenosis at L2-L3 and severe left neural foraminal stenosis at L4-L5. MRI head: IMPRESSION: Multiple old infarcts A large amount of small vessel ischemic changes also noted bilaterally No acute infarct or hemorrhage. (7) History of CVA (cerebrovascular accident) Current Visit: Yes Status: Acute Assessment and plan: has history of multiple CVA and is on DAPT allergic to statin has slow psychomotor response ( baseline as per family) MRI in 2017 IMPRESSION: Multiple old infarcts A large amount of small vessel ischemic changes also noted bilaterally No acute infarct or hemorrhage. (8) DVT prophylaxis Current Visit: Yes Status: Acute Assessment and plan: heparin SC - Time Spent With Patient Total time spent is greater than 50% in coordination of care (as documented) at patient's floor/unit and/or counseling patient:
[2018-05-25] MEDS ORDERED: 0.9 % Sodium Chloride 250 ML IVC PRN (11:35)
[2018-05-25] MEDS ORDERED: 0.9 % Sodium Chloride 1,000 ML PRIME SCH (11:45)
[2018-05-25] MEDS ORDERED: Piperacillin/Tazobactam 3.375 GM in Water for inj. (sterile) 20 ML 20 ML IVP ONE (11:47)
[2018-05-25] MEDS ORDERED: Vancomycin 1 EACH in 0.9 % Sodium Chloride 250 ML IVPB PRN (12:00)
[2018-05-25] MEDS ORDERED: Piperacillin/Tazobactam 3.375 GM in 0.9 % Sodium Chloride Mini Bag 100 ML IVPB SCH (12:00)
--- NOTE | 2018-05-25 12:11 | Nephrology Consult Note ---
Date of Encounter: 05/25/18 Time of Encounter: 12:02 Assessment and Plan (1) ESRD (end stage renal disease) on dialysis Current Visit: No Status: Chronic HD MWF. Renal vitamins. Renal dose medications. Renal diet. Additional dialysis and ultrafiltration as needed. Plan for dialysis today. (2) Dyspnea Current Visit: Yes Status: Acute Likely related to the pleural effusions. Per the primary team. Qualifiers: Qualified Code(s): R06.00 - Dyspnea, unspecified (3) Loculated pleural effusion Current Visit: Yes Status: Acute Per the CT scan. Primary team is consult interventional radiology to drain the effusions. (4) Diabetes mellitus Current Visit: No Status: Acute Per the primary team. 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 Should improve with ultrafiltration. Qualifiers: Hypertension type: essential hypertension Qualified Code(s): I10 - Essential (primary) hypertension History of Present Illness - Reason for Consult Consult date: 05/25/18 end stage renal disease - Chief Complaint Dypnea ESRD - History of Present Illness Mr. Rea is a 73 yo man with a history of ESRD who presents for evaluation of worsening dyspnea. Patient's last dialysis was on Friday and since then he has had worsening dyspnea without chest pain or fevers. The history is partially from the patient, but also from his family members were at the bedside. At the time my evaluation the patient still has some dyspnea, but is slightly better than when he came in the hospital. He receives dialysis Friday via a left forearm fistula. Past Med Surg Social Fam HX - Past Medical History Medical history: CHF, COPD, coronary artery disease, diabetes, dialysis, hyperlipidemia, hypertension, myocardial infarction, renal disease, TIA Additional medical history: descending aortic aneurysm. HEART CATH. ANEMIA. CATARACTS Psychiatric history: anxiety, depression - Past Surgical History Surgical History: appendectomy, coronary bypass (CABG), other Additional surgical history: HEART CATH - Social History Smoking Status: Former smoker Smokeless Tobacco Status: No Alcohol use: none Drug use: none - Family History Father Family Member Ethnicity: Non- Living Status: Hx Family Cardiac Disorders: Yes Hx Family Respiratory Disorders: No Hx Family Cancer: No Hx Family GI Disorders: No Hx Family Endocrine Disorder: Yes Hx Family Neuromuscular Disorders: No Hx Family Neurologic Disorders: No Hx Family HEENT Disorders: No Hx Family Autoimmune Disorders: No Mother Living Status: Hx Family Cardiac Disorders: Yes Hx Family Respiratory Disorders: No Hx Family Cancer: No Hx Family GI Disorders: No Hx Family Endocrine Disorder: No Hx Family Neuromuscular Disorders: No Hx Family Neurologic Disorders: No Hx Family HEENT Disorders: No Hx Family Autoimmune Disorders: No Medications and Allergies Amlodipine Besylate 10 mg PO DAILY 10/22/16 [History] Aspirin Enteric Coated [Aspirin EC] 81 mg PO DAILY 10/22/16 [History] Montelukast [Singulair] 10 mg PO HS 10/22/16 [History] Albuterol Sulfate [Albuterol Inhaler] 2 puff IH Q4-6H PRN 10/30/17 [History] Carvedilol [Coreg] 25 mg PO BID 10/30/17 [History] Folic Acid/Vit B Complex and C [Dialyvite Tablet] 1 tab PO DAILY 10/30/17 [ History] Rosuvastatin Calcium [Crestor] 5 mg PO HS 10/30/17 [History] Acetaminophen [Tylenol 8 Hour] 650 mg PO Q8H PRN 02/05/18 [History] Clopidogrel [Plavix] 75 mg PO DAILY 02/05/18 [History] LevETIRAcetam [Roweepra] 500 mg PO HS 02/05/18 [History] Melatonin [Melatin] 6 mg PO HS 02/05/18 [History] OxyCODONE/APAP 5/325 [Percocet 5/325 MG] 1 each PO Q6HR PRN 7 Days #7 tablet [Rx] Sevelamer [Renvela] 1,600 mg PO TIDWM 02/05/18 [History] Tiotropium [Spiriva] 18 mcg IH 0700 02/05/18 [History] hydrALAZINE [HydrALAZINE] 25 mg PO Q6HR 02/05/18 [History] 3 Allergy/AdvReac Type Severity Reaction Status Date / Time Achxezw-Wqi-Frf Reductase AdvReac Cramping Verified 01/22/18 15:37 Inhibitor of the [Statins] Muscles Review of Systems All Systems: reviewed and no additional remarkable complaints except as stated ( as documented in the hpi) Exam - Vital Signs Vital signs: Initial Vital Signs Temp Pulse Resp BP Pulse Ox 98.3 F 84 20 163/76 94 05/25/18 07:44 05/25/18 07:44 05/25/18 07:44 05/25/18 07:44 05/25/18 07:44 Vital Signs - Last 8 Hours Resp BP 05/25/18 11:22 18 169/72 - General Appearance General appearance: well-developed, well-nourished EENT: ATNC Neck: supple Respiratory: wheezing (scattered), rales (in the bases) Cardiology: edema, regular rate - Dialysis Access Dialysis Vascular Access: Arteriovenous Fistula thrill: Yes bruit: Yes Gastrointestinal: no tenderness Integumentary: warm and dry Neurologic: alert and oriented x3 Musculoskeletal: no cyanosis Psychiatric: mood/affect appropriate Results - Lab Results 05/25/18 08:05 05/25/18 08:05 Most recent lab results Calcium 9.3 mg/dL (8.6-10.3) 05/25/18 08:05 Consult Discharge Plan - Plan [facility]errals: [facility] [Primary Care Provider[facility] -
[2018-05-25 12:19] LABS: INR 1.2
[2018-05-25 12:22] LABS: Activated Partial Thrombo Time 34.6 Seconds (26.0-36.0)
[2018-05-25] MEDS: *HR* Heparin 5,000 UNIT/ML VIAL SQ SCH ×2 (12:58→20:34)
[2018-05-25] MEDS: Ipratropium/Albuterol Neb 3 ML IH SCH ×3 (13:03→20:05)
[2018-05-25] MEDS: amLODIPine 5 MG TABLET PO SCH (17:59)
[2018-05-25] MEDS: Aspirin Enteric Coated 81 MG Tablet PO SCH (17:59)
[2018-05-25] MEDS: Piperacillin/Tazobactam 3.375 GM in 0.9 % Sodium Chloride Mini Bag 100 ML IVPB SCH (18:00)
[2018-05-25] MEDS: Melatonin 3 MG TABLET PO SCH (20:34)
[2018-05-25] MEDS: levETIRAcetam 250 MG TABLET PO SCH (20:34)
[2018-05-25] MEDS ORDERED: (Rosuvastatin Calcium [Crestor] 5 MG) PO SCH (21:00)
[2018-05-26 05:24] LABS: Basophils % 0.5 %; Eosinophils # 0.2 K/mcL (0.0-0.6); Eosinophils % 3.1 %; Hematocrit 27.9 % (37.5-50.1); Hemoglobin 8.8 g/dL (12.9-16.9); Immature Granulocytes % 0.4 % (0-4); Lymphocytes # 0.6 K/mcL (0.6-4.6); Lymphocytes % 7.5 %; Mean Corpuscular HGB Conc 31.5 g/dL (31.6-35.5); Mean Corpuscular Hemoglobin 30.7 pg (28.0-33.3); Mean Corpuscular Volume 97.2 fL (83.0-100.0); Monocytes # 0.8 K/mcL (0.0-1.3); Monocytes % 10.2 %; Neutrophils # 6.1 K/mcL (1.6-8.9); Platelet Count 191 K/mcL (140-400); Red Blood Count 2.87 M/mcL (4.19-5.50); Red Cell Distribution Width 13.6 % (11.5-14.5); Segmented Neutrophils % 78.3 %
[2018-05-26] MEDS: *HR* Heparin 5,000 UNIT/ML VIAL SQ SCH ×3 (05:31→21:34)
[2018-05-26] MEDS: Piperacillin/Tazobactam 3.375 GM in 0.9 % Sodium Chloride Mini Bag 100 ML IVPB SCH ×2 (05:31→16:38)
[2018-05-26 05:40] LABS: Calcium 9.1 mg/dL (8.6-10.3); Magnesium 2.3 mg/dL (1.6-2.6); Phosphorous 3.4 mg/dL (2.7-4.5); Potassium 4.2 mEq/L (3.5-5.1)
--- NOTE | 2018-05-26 06:39 | Electrocardiograph Report ---
[place] [facility] Test Date: 2018-05-25 Pat Name: Haleigh Rea Department: EXAM4 Room: 2A11 Gender: M Treatment Counselor: : 1945 Requested By: Rodolfo Weber Order Number: [id number] Reading MD: Jitendra Johnson Measurements Intervals [place] Rate: 83 P: 11 UT: 204 QRS: -20 QRSD: 99 T: 148 QT: 411 QTc: 483 Interpretive Statements Sinus rhythm LVH with secondary repolarization abnormality Electronically Signed On 05-26-2018 6:37:43 EDT by Jitendra Johnson
[2018-05-26] MEDS ORDERED: NON-FORMULARY MEDICATION 1 EACH EACH (Amlodipine Besylate [Amlodipine Besylate] 10 MG) PO SCH (09:00)
[2018-05-26] MEDS ORDERED: FOLIC ACID PO SCH (09:00)
[2018-05-26] MEDS ORDERED: VIT B COMPLEX AND C PO SCH (09:00)
[2018-05-26] MEDS: amLODIPine 5 MG TABLET PO SCH (09:24)
[2018-05-26] MEDS: Renal Vitamin 1 CAP CAPSULE PO SCH (09:24)
[2018-05-26] MEDS: Aspirin Enteric Coated 81 MG Tablet PO SCH (09:24)
--- NOTE | 2018-05-26 10:03 | Internal Med Progress Note ---
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 The patient is seen and examined at the bedside this morning, he denies any new complaints, he reports shortness of breath has improved. He is very slow to response, however he is oriented 3. He is awaiting thoracentensis by interventional radiology, and pulmonology evaluation. He is otherwise stable. - Exam Vitals: Temp Pulse Resp BP Pulse Ox 99.2 F 67 18 171/70 96 05/26/18 07:33 05/26/18 07:33 05/26/18 07:33 05/26/18 07:33 05/26/18 07:33 Exam: General: Patient is alert, oriented, no acute distress, no acute distress, slow to respond, which is his baseline Head: atraumatic, normocephalic, Eye: normal appearance, PERRL, no scleral icterus, no conjunctival injection ENT: mucous membranes moist, normal external ear exam Neck: normal inspection, trachea midline, full ROM, NO JVD Chest: normal inspection, symmetric chest rise, well healed CABG scar Respiratory: Decreased air entry bilaterally, no added sound Heart: S1, S2 only, no m/g/r Abdomen: Not tender, no palpably enalrged organs MSK: Spontaneously moving all extremities. no edema Skin: warm, dry, intact. left forearm fistula with audible bruit adn palpable thrill , no rash Neuro: Alert and oriented x3 ( know s this is [facility], president is bev murillo, year is 2017) . No focal weakness or speech deficits Psych: Patient's affect is normal - Assessment and Plan (1) CAD (coronary artery disease) Current Visit: Yes Status: Chronic Assessment and Plan: s/p 3vCABG at [facility] on 08/30/16 thoracoadominal aneurysm repair at [facility] November 2016. Continue ASA, hold plavix for possible procedure, continue coreg patient allergic to statins (2) Spinal stenosis at L4-L5 level Current Visit: Yes Status: Chronic Assessment and Plan: Chronic, stable history of multiple falls - last admitted at [facility] for evaluation of falls PT/OT currently strength is 5/5 in bilateral lower extremities fall precautions vitamin D (3) Loculated pleural effusion Current Visit: Yes Status: Acute Assessment and Plan: CTPA performed on 05/25/18 showed - Evidence of bilateral loculated effusions worse in the lower lobes and worse in the right lower lobe. Lower lobe atelectatic and/or consolidative changes worse in the right lower lobe. s/p thoracocentesis in 12/25- cytology showed, Lymphocytes, reactive mesothelial cells and macrophages seen. cx negative Follow IR an Pulm eval, Hold plavix, continue current care, follow cultures (4) Goals of care, counseling/discussion Current Visit: Yes Status: Acute Assessment and Plan: Currently DNR/DNI Palliative was consulted by admitting physician, will await recommendations (5) Acute respiratory failure with hypoxia Current Visit: Yes Status: Acute Assessment and Plan: [facility] Mult[facility]actorial: Bilateral loculated pleural effusion as seen on chest CT as well as CHF exacerbation with elevated BNP and edema. Gen. hemodialysis by nephrology, continue antibiotics for treatment of pneumonia and follow interventional radiology evaluation for pleural effusion drainage Pulmonary embolism has been ruled out. Continue oxygen and wean as tolerated.8) (6) DVT prophylaxis Current Visit: Yes Status: Acute Assessment and Plan: heparin SC (7) History of CVA (cerebrovascular accident) Current Visit: Yes Status: Chronic Assessment and Plan: as history of multiple CVA and is on DAPT allergic to statin has slow psychomotor response ( baseline as per family) Fall precautions (8) Acute on chronic HFrEF (heart failure with reduced ejection fraction) Current Visit: Yes Status: Acute Assessment and Plan: TTE 05/20/17 with EF 45-50%. Normal LV chamber size, wall thickness and low normal/mildly reduced function. Follow repeat ECHO BNP 3176 nephrology on board for dialysis today rest of the management as per above - Time Spent with Patient Total time spent is greater than 50% in coordination of care (as documented) at patient's floor/unit and/or counseling patient: Plan of Care Discussed with: nurse Internal Medicine: Result - Labs CBC & Chem 7: 05/26/18 05:01 05/26/18 05:01 Labs: Short CBC 05/26/18 Range/Units 05:01 WBC 7.8 (4.3-11.1) K/mcL Hgb 8.8 L (12.9-16.9) g/dL Hct 27.9 L (37.5-50.1) % Plt Count 191 (140-400) K/mcL Neutrophils # 6.1 (1.6-8.9) K/mcL BMP 05/26/18 05:01 Sodium 137 Potassium 4.2 Chloride 99 Carbon Dioxide 28 BUN 32 H Creatinine 4.46 H Glucose 88 Calcium 9.1 - ABG Interpretation ABG results: PT/INR, D-dimer PT 13.0 Seconds (9.4-12.1) H 05/25/18 11:57 Consult Discharge Plan - Plan [facility]errals: [facility] [Primary Care Provider] - (1) CAD (coronary artery disease) Qualifiers: Coronary Disease-Associated Artery/Lesion type: bypass graft [place] vs. transplanted heart: [place] heart Associated angina: without angina Qualified Code(s): I25.810 - Atherosclerosis of coronary artery bypass graft(s) without angina pectoris
--- NOTE | 2018-05-26 10:35 | Nephrology Progress Note ---
Date of Encounter: 05/26/18 Time of Encounter: 10:35 - Assessment and Plan (1) ESRD (end stage renal disease) on dialysis Current Visit: No Status: Chronic HD MWF. Renal vitamins. Renal dose medications. Renal diet. Additional dialysis and ultrafiltration as needed. Plan for HD tomorrow. (2) Diabetes mellitus Current Visit: No Status: Acute Per the primary team. Qualifiers: Qualified Code(s): E11.8 - Type 2 diabetes mellitus with unspecified complications (3) Hypertension Current Visit: No Status: Acute BP stable, 171/70. Qualifiers: Qualified Code(s): I10 - Essential (primary) hypertension (4) Dyspnea Current Visit: Yes Status: Acute Likely related to the pleural effusions. Per the primary team. Qualifiers: Qualified Code(s): R06.00 - Dyspnea, unspecified (5) Loculated pleural effusion Current Visit: Yes Status: Acute Per the CT scan. IR consulted. Subjective Principal diagnosis: difficulty in breathing Interval history: Pt seen and examined, sitting up in chair doing well. No CP or SOB. Denies nausea/vomiting/diarrhea. Objective - Vital Signs Vital signs: Vital Signs Temp Pulse Resp BP Pulse Ox 05/26/18 07:33 99.2 F 67 18 171/70 96 05/26/18 05:14 97.8 F 65 18 169/67 93 05/26/18 00:09 99.3 F 70 18 163/65 92 05/25/18 20:05 18 92 05/25/18 19:03 99 F 73 20 163/70 92 05/25/18 16:25 18 92 05/25/18 16:01 98.5 F 71 18 188/78 92 05/25/18 15:25 97.8 F 18 186/83 05/25/18 15:05 194/86 05/25/18 14:50 193/83 05/25/18 14:35 190/88 05/25/18 14:20 173/83 05/25/18 14:05 167/63 05/25/18 13:50 160/70 05/25/18 13:35 173/63 05/25/18 13:20 161/66 05/25/18 13:05 168/84 05/25/18 12:50 97.7 F 18 163/66 Intake and Output 05/25/18 05/26/1805/26/18 23:59 07:59 15:59 Intake Total 350 / 350 Balance 350 / 350 Intake: IV Fluids 350 / 350 Zosyn 3.375 GM In 0.9 % Sodium 100 / 100 Chloride (Mini-Bag +) 100 ML @ 25 mls/hr IVPB Q12H [facility] Rx#: [id number] Vancocin 1,250 MG In 0.9 % 250 / 250 Sodium Chloride 250 ML @ 166.67 mls/hr IVPB ONCE ONE Rx#: [id number] Other: Stool Size Moderate Smear Stool Consistency soft Stool Color Brown # Urine Diapers 1 Weight 82.2 kg Patient Weight 05/26/18 23:59 Weight 82.2 kg - General Appearance General appearance: Present: well-developed, well-nourished EENT: Present: ATNC, hearing intact, vision intact Neck: Present: supple Respiratory: Present: clear Cardiology: Present: no edema, normal S1, normal S2 Dialysis Vascular Access: Arteriovenous Fistula thrill: Yes bruit: Yes Gastrointestinal: Present: normoactive bowel sounds, no tenderness, no guarding Integumentary: Present: no rash, warm and dry Neurologic: Present: alert and oriented x3 Psychiatric: Present: mood/affect appropriate, cooperative - Lab 05/26/18 05:01 05/26/18 05:01 Most recent lab results Calcium 9.1 mg/dL (8.6-10.3) 05/26/18 05:01 Phosphorus 3.4 mg/dL (2.7-4.5) 05/26/18 05:01 Magnesium 2.3 mg/dL (1.6-2.6) 05/26/18 05:01 Consult Discharge Plan - Plan [facility]errals: [facility] [Primary Care Provider] -
--- NOTE | 2018-05-26 15:27 | Palliative - Consult Note ---
Date of Encounter: 05/26/18 Time of Encounter: 09:30 - Assessment and Plan (1) Goals of care, counseling/discussion Current Visit: Yes Status: Acute Assessment and plan: met with pt at 9:30 am, discussed current medical condition, trajectory of illness, prognosis and treatment options. Pt was AAO x3, but with periods of confusion and unable to fully elaborate his medical condition. Pt stated that he has a and a daughter, and defers decision making to his . he confirmed that he would like to remain DNRCC/DNI. Met with pt's at 14:00. At the time pt had had thoracenthesis with bilateral chest tubes in place. Patient's at first was reluctant to a conversation with palliative care as she associated it to hospice. Explained the difference between palliative care and hospice and the supportive role of palliative care. Discussed pt's current medical condition. has noticed a progressive deterioration in the pt and believes the [facility] intermediate is to blame for their lack of PT. Explained that pt's progressive worsening is more likely due to his underlying poor health. does not want any further GOC discussion before a full assessment and a diagnosis is made as per the cause of pleural effusion. Palliative care will follow. (2) ESRD (end stage renal disease) on dialysis Current Visit: No Status: Chronic Assessment and plan: on HD, management per nephrology (3) Dyspnea Current Visit: Yes Status: Acute Assessment and plan: Patient refers relief of dyspnea with the chest tubes in place, denies any discomfort from the tubes. on ABX for pneumonia: Vanco and zosyn. Qualifiers: Dyspnea type: shortness of breath Qualified Code(s): R06.02 - Shortness of breath; R06.00 - Dyspnea, unspecified; R06.01 - Orthopnea (4) Loculated pleural effusion Current Visit: Yes Status: Acute Assessment and plan: S/p bilateral chest tubes Pulmonary on the case Palliative-CN HPI - Data of Consult Patient: new to practice Consult date: 05/26/18 Requesting Physician: Nas Neal MD [facility] - Consult Narrative Palliative Care/Comfort Measures: Palliative care Reason for consult: Goals of care History of present illness: Mr. Rea is a 73 year old male ith history of CAD status post CABG, ESRD on HD ( MWF) multiple strokes with residual psychomotor retardation, spinal stenosis, unsteady gait presented to the emergency department from the [facility] after he was found to have shortness of breath and hypoxemia. Patient reported that he has had a week worth of cough without any productive sputum, that has progressively worsened. He cannot recall aggravating factors but his symptoms are alleviated with oxygen via nasal cannula. In the ED CT chest showed bilateral loculated pleural effusions, IR and pulmonology were consulted. Palliative care consult for GOC. Patient was sitting on chair this morning, stated to be feeling better, but confused. He stated that he had a difficult time recalling where he was and why he was in the hospital. Otherwise, he denied any pain. He denied fever, chills, cough, abdominal pain, N/V/D, back pain, syncope, falls, chest trauma, falls, head trauma, extremity weakness, syncope, seizures. CC: Nas eNal MD - Time Spent with Patient Time: Total time spent is greater than 50% face to face with patient and family, in coordination of care (as documented) at patient's floor/unit and/or counseling patient: more than 70 minutes Past Med Surg Social Fam HX - Past Medical History Medical history: CHF, COPD, coronary artery disease, diabetes, dialysis, hyperlipidemia, hypertension, myocardial infarction, renal disease, TIA Additional medical history: descending aortic aneurysm. HEART CATH. ANEMIA. CATARACTS Psychiatric history: anxiety, depression - Past Surgical History Surgical History: appendectomy, coronary bypass (CABG), other Additional surgical history: HEART CATH - Social History Smoking Status: Former smoker Smokeless Tobacco Status: No Alcohol use: none Drug use: none - Family History Father Family Member Ethnicity: Non- Living Status: Hx Family Cardiac Disorders: Yes Hx Family Respiratory Disorders: No Hx Family Cancer: No Hx Family GI Disorders: No Hx Family Endocrine Disorder: Yes Hx Family Neuromuscular Disorders: No Hx Family Neurologic Disorders: No Hx Family HEENT Disorders: No Hx Family Autoimmune Disorders: No Mother Living Status: Hx Family Cardiac Disorders: Yes Hx Family Respiratory Disorders: No Hx Family Cancer: No Hx Family GI Disorders: No Hx Family Endocrine Disorder: No Hx Family Neuromuscular Disorders: No Hx Family Neurologic Disorders: No Hx Family HEENT Disorders: No Hx Family Autoimmune Disorders: No Medications and Allergies Amlodipine Besylate 10 mg PO DAILY 10/22/16 [History] Aspirin Enteric Coated [Aspirin EC] 81 mg PO DAILY 10/22/16 [History] Montelukast [Singulair] 10 mg PO HS 10/22/16 [History] Albuterol Sulfate [Albuterol Inhaler] 2 puff IH Q4-6H PRN 10/30/17 [History] Carvedilol [Coreg] 25 mg PO BID 10/30/17 [History] Acetaminophen [Tylenol 8 Hour] 650 mg PO Q8H PRN 02/05/18 [History] Clopidogrel [Plavix] 75 mg PO DAILY 02/05/18 [History] LevETIRAcetam [Roweepra] 500 mg PO HS 02/05/18 [History] Melatonin [Melatin] 6 mg PO HS 02/05/18 [History] OxyCODONE/APAP 5/325 [Percocet 5/325 MG] 1 each PO Q6HR PRN 7 Days #7 tablet [Rx] Sevelamer [Renvela] 1,600 mg PO TIDWM 02/05/18 [History] Tiotropium [Spiriva] 18 mcg IH 0700 02/05/18 [History] Calcium Acetate [Phos-LO] 667 mg PO TIDWM 05/25/18 [History] Folic Acid/Vit B Complex and C [Dialyvite Tablet] 1 tab PO DAILY 05/25/18 [ History] Hydroxychloroquine [Plaquenuil] 200 mg PO DAILY 05/25/18 [History] Lisinopril [Lisinopril] 2.5 mg PO DAILY 05/25/18 [History] Melatonin 10 mg PO HS PRN 05/25/18 [History] Nitroglycerin [Nitrostat] 0.4 mg SL AD 05/25/18 [History] Ranitidine HCl [Acid Double End Tenoner Setter] 150 mg PO HS 05/25/18 [History] Rosuvastatin Calcium [Crestor] 10 mg PO DAILY 05/25/18 [History] 3 Allergy/AdvReac Type Severity Reaction Status Date / Time atorvastatin AdvReac See Verified 05/26/18 10:48 Comments simvastatin AdvReac See Verified 05/26/18 10:48 Comments - Constitutional Constitutional ROS PAL: fatigue - Cardiovascular Cardiovascular ROS: no chest pain, no orthopnea - Respiratory Respiratory: dyspnea, no cough - Gastrointestinal Gastrointestinal: no abdominal pain, no change in bowel habits - Genitourinary Genitourinary ROS male: no dysuria - Musculoskeletal Musculoskeletal ROS IM: muscle weakness - Integumentary ROS Integumentary: dry skin - Neurological Neurological ROS: confusion Palliative Care-Exam - Constitutional Vitals: Temp Pulse Resp BP Pulse Ox 98.9 F 66 20 164/75 97 05/26/18 11:00 05/26/18 12:50 05/26/18 11:00 05/26/18 12:50 05/26/18 12:50 Exam: General: Patient is alert, oriented, no acute distress, no acute distress, slow to respond, which is his baseline Head: atraumatic, normocephalic, Eye: normal appearance, PERRL, no scleral icterus, no conjunctival injection ENT: mucous membranes moist, normal external ear exam Neck: normal inspection, trachea midline, full ROM, NO JVD Chest: normal inspection, symmetric chest rise, well healed CABG scar Respiratory: Decreased air entry bilaterally Heart: S1, S2 only, no m/g/r Abdomen: soft, not tender, no rebound or guarding, no organomegaly. MSK: Spontaneously moving all extremities. no edema Skin: warm, dry, intact. left forearm fistula with audible bruit adn palpable thrill , no rash Neuro: Alert and oriented x3 . No focal weakness or speech deficits Psych: Patient's affect is normal Internal Medicine - CN: Reslt - Labs CBC & Chem 7: 05/26/18 05:01 05/26/18 05:01 Labs: Short CBC 05/26/18 Range/Units 05:01 WBC 7.8 (4.3-11.1) K/mcL Hgb 8.8 L (12.9-16.9) g/dL Hct 27.9 L (37.5-50.1) % Plt Count 191 (140-400) K/mcL Neutrophils # 6.1 (1.6-8.9) K/mcL BMP 05/26/18 05:01 Sodium 137 Potassium 4.2 Chloride 99 Carbon Dioxide 28 BUN 32 H Creatinine 4.46 H Glucose 88 Calcium 9.1 - ABG Interpretation ABG results: PT/INR, D-dimer PT 13.0 Seconds (9.4-12.1) H 10/15/18 11:57 - Impressions Impressions Needle Aspiration CT 05/26/18 00:00 IMPRESSION: Successful CT guided placement of a bilateral chest tubes D/ / Jack Olvera MD / Jack Olvera MD Interpreting Provider: Jack Olvera MD Needle Aspiration CT 05/26/18 00:00 IMPRESSION: Successful CT guided placement of a bilateral chest tubes D/ / Jack Olvera MD / Jack Olvera MD Interpreting Provider: Jack Olvera MD Consult Discharge Plan - Plan [facility]errals: [facility] [Primary Care Provider] - Palliative Quality Palliative Quality: Screen for Code Status: Yes, Screen for Goals of Care: Yes, Screen for Pain: Yes, If Pain Regimen Started, Initiate Bowel Regimen: Yes, Screen for Nausea/Vomitting: Yes
[2018-05-26 16:45] LABS: RBC,Pleural Fluid 0.004 M/mcL
[2018-05-26 16:49] LABS: RBC,Pleural Fluid 0.006 M/mcL
[2018-05-26 17:30] LABS: Glucose,Pleural Fluid 57 mg/dL (No Ref Range); LDH,Pleural Fluid 108 Units/L (No Ref Range); Total Protein,Pleural Fluid < 3.0 g/dL (No Ref Range)
[2018-05-26 17:31] LABS: Glucose,Pleural Fluid 71 mg/dL (No Ref Range); LDH,Pleural Fluid 55 Units/L (No Ref Range); Total Protein,Pleural Fluid < 3.0 g/dL (No Ref Range)
[2018-05-26 18:09] LABS: Appearance of Pleural Fl Cloudy (Clear)
[2018-05-26 18:28] LABS: Appearance of Pleural Fl Hazy (Clear)
[2018-05-26] MEDS: Acetaminophen 325 MG TABLET PO PRN (19:42)
[2018-05-26] MEDS: Melatonin 3 MG TABLET PO SCH (21:31)
[2018-05-26] MEDS: levETIRAcetam 250 MG TABLET PO SCH (21:31)
[2018-05-27 04:17] LABS: Basophils # 0.1 K/mcL (0.0-0.2); Basophils % 0.7 %; Eosinophils # 0.3 K/mcL (0.0-0.6); Eosinophils % 5.1 %; Hematocrit 27.6 % (37.5-50.1); Hemoglobin 8.4 g/dL (12.9-16.9); Immature Granulocytes % 0.4 % (0-4); Lymphocytes # 0.8 K/mcL (0.6-4.6); Lymphocytes % 12.1 %; Mean Corpuscular HGB Conc 30.4 g/dL (31.6-35.5); Mean Corpuscular Volume 98.6 fL (83.0-100.0); Monocytes # 0.7 K/mcL (0.0-1.3); Monocytes % 11.1 %; Neutrophils # 4.7 K/mcL (1.6-8.9); Platelet Count 184 K/mcL (140-400); Red Cell Distribution Width 13.4 % (11.5-14.5); Segmented Neutrophils % 70.6 %
[2018-05-27 04:36] LABS: Calcium 9.1 mg/dL (8.6-10.3); Potassium 4.3 mEq/L (3.5-5.1)
[2018-05-27] MEDS: Piperacillin/Tazobactam 3.375 GM in 0.9 % Sodium Chloride Mini Bag 100 ML IVPB SCH ×2 (05:01→17:10)
[2018-05-27] MEDS: *HR* Heparin 5,000 UNIT/ML VIAL SQ SCH ×3 (05:04→22:16)
[2018-05-27] MEDS ORDERED: 0.9 % Sodium Chloride 1,000 ML PRIME SCH (07:45)
[2018-05-27] MEDS ORDERED: 0.9 % Sodium Chloride 250 ML IVC PRN (07:45)
[2018-05-27] MEDS ORDERED: 0.9 % Sodium Chloride 2,000 ML ONE (08:07)
[2018-05-27] MEDS: Aspirin Enteric Coated 81 MG Tablet PO SCH (08:27)
[2018-05-27] MEDS: Renal Vitamin 1 CAP CAPSULE PO SCH (08:27)
--- NOTE | 2018-05-27 09:41 | Nephrology Progress Note ---
Date of Encounter: 05/27/18 Time of Encounter: 09:39 - Assessment and Plan (1) ESRD (end stage renal disease) on dialysis Current Visit: No Status: Chronic HD MWF. Renal vitamins. Renal dose medications. Renal diet. Additional dialysis and ultrafiltration as needed. HD in progress for today. (2) Diabetes mellitus Current Visit: No Status: Acute Per the primary team. Qualifiers: Diabetes mellitus type: type 2 Diabetes mellitus rn long term care insulin use: without rn long term care use Diabetes mellitus complication status: with unspecified complications Qualified Code(s): E11.8 - Type 2 diabetes mellitus with unspecified complications (3) Hypertension Current Visit: No Status: Acute BP stable, BP 175/67. Qualifiers: Hypertension type: essential hypertension Qualified Code(s): I10 - Essential (primary) hypertension (4) Dyspnea Current Visit: Yes Status: Acute 2 Chest tubes placed by IR 05/26/18. Qualifiers: Dyspnea type: shortness of breath Qualified Code(s): R06.02 - Shortness of breath; R06.00 - Dyspnea, unspecified; R06.01 - Orthopnea (5) Loculated pleural effusion Current Visit: Yes Status: Acute See above. Subjective Principal diagnosis: difficulty in breathing Interval history: Pt seen and examined during HD, tolerating well. Denies CP, admits to fatigue and SOB. Objective - Vital Signs Vital signs: Vital Signs Temp Pulse Resp BP Pulse Ox 05/27/18 07:28 98.1 F 60 16 175/67 94 05/27/18 03:00 98.2 F 59 17 172/61 96 05/27/18 00:27 97.9 F 64 17 164/74 96 05/26/18 20:09 99.7 F H 65 17 145/68 96 05/26/18 19:07 99.3 F 96 17 117/74 88 05/26/18 16:15 98.5 F 66 18 177/63 96 05/26/18 12:50 66 164/75 97 05/26/18 12:45 65 167/73 99 05/26/18 12:40 64 142/58 94 05/26/18 12:35 66 150/61 98 05/26/18 12:30 64 148/58 98 05/26/18 12:27 168/72 93 05/26/18 11:00 98.9 F 62 20 149/84 95 Intake and Output 10/16/18 10/17/18 10/17/18 23:59 07:59 15:59 Intake Total 100 / 100 Output Total 160 / 160 118 / 118 378 / 378 Balance -60 / -60 -118 / -118 -378 / -378 Intake: IV Fluids 100 / 100 Zosyn 3.375 GM In 0.9 % Sodium 100 / 100 Chloride (Mini-Bag +) 100 ML @ 25 mls/hr IVPB Q12H [facility] Rx#: [id number] Output: Wound Drainage 118 / 118 Left Chest 86 / 86 Right Chest 32 / 32 Chest Tube Drainage 160 / 160 378 / 378 Left Posterior Chest #1 80 / 80 180 / 180 Right Posterior Chest #2 80 / 80 198 / 198 Other: # Urine Diapers 1 2 Weight 82.2 kg - General Appearance General appearance: Present: well-developed, well-nourished EENT: Present: ATNC, hearing intact, vision intact Neck: Present: supple Respiratory: Present: clear Cardiology: Present: no edema, normal S1, normal S2 Dialysis Vascular Access: Arteriovenous Fistula thrill: Yes bruit: Yes Gastrointestinal: Present: normoactive bowel sounds, no tenderness, no guarding Integumentary: Present: no rash, warm and dry Neurologic: Present: alert and oriented x3 Psychiatric: Present: mood/affect appropriate, cooperative - Lab 05/27/18 03:49 05/27/18 03:49 Most recent lab results Calcium 9.1 mg/dL (8.6-10.3) 05/27/18 03:49 Phosphorus 3.4 mg/dL (2.7-4.5) 05/26/18 05:01 Magnesium 2.3 mg/dL (1.6-2.6) 05/26/18 05:01 Consult Discharge Plan - Plan [facility]errals: [facility] [Primary Care Provider] -
--- NOTE | 2018-05-27 10:22 | Internal Med Progress Note ---
Hospitalist Progress Note - Encounter Date of Encounter: 05/27/18 Time of Encounter: 10:22 - Subjective Interval History: 73 year-old male with history of coronary artery disease status post CABG, end- stage renal disease on hemodialysis, psychomotor retardation from multiple strokes resident [facility] the [facility] who presented with shortness of breath found to be in hypoxic respiratory failure and admitted for bilateral nucleated pleural effusion, CHF exacerbation as well as suspected pneumonia. He is seen and examined at the bedside s/p Chest tube placement bilaterally by IR on 05/26, connected to suction he is complaining of pain 5/10 at insertion sites Breathing is improved, no longer on O2 - Exam Vitals: Temp Pulse Resp BP Pulse Ox 98.1 F 60 16 175/67 94 05/27/18 07:28 05/27/18 07:28 05/27/18 07:28 05/27/18 07:28 05/27/18 07:28 Exam: General: Patient is alert, oriented, no acute distress, no acute distress, slow to respond, which is his baseline Head: atraumatic, normocephalic, Eye: normal appearance, PERRL, no scleral icterus, no conjunctival injection ENT: mucous membranes moist, normal external ear exam Neck: normal inspection, trachea midline, full ROM, NO JVD Chest:post chest wall with wound dressings, R clean and dry, L slightly soaked, Chest tubes in situ, connected to synction. symmetric chest rise, well healed CABG scar Respiratory: Decreased air entry bilaterally, no added sound Heart: S1, S2 only, no m/g/r Abdomen: Not tender, no palpably enalrged organs MSK: Spontaneously moving all extremities. no edema Skin: warm, dry, intact. left forearm fistula with audible bruit adn palpable thrill , no rash Neuro: Alert and oriented x3 ( know s this is [facility], president is bev murillo, year is 2017) . No focal weakness or speech deficits Psych: Patient's affect is normal - Assessment and Plan (1) CAD (coronary artery disease) Current Visit: Yes Status: Chronic Assessment and Plan: s/p 3vCABG at [facility] on 08/30/16 thoracoadominal aneurysm repair at [facility] November 2016. Continue ASA, resume plavix , continue coreg patient allergic to statins (2) Spinal stenosis at L4-L5 level Current Visit: Yes Status: Chronic Assessment and Plan: Chronic, stable history of multiple falls - last admitted at [facility] for evaluation of falls PT/OT currently strength is 5/5 in bilateral lower extremities fall precautions vitamin D (3) Loculated pleural effusion Current Visit: Yes Status: Acute Assessment and Plan: CTPA performed on 05/25/18 showed - Evidence of bilateral loculated effusions worse in the lower lobes and worse in the right lower lobe. Lower lobe atelectatic and/or consolidative changes worse in the right lower lobe. s/p thoracocentesis in 12/25- cytology showed, Lymphocytes, reactive mesothelial cells and macrophages seen. cx negative s/p chest tube placement Prior cytology was negative Looks transudative from current pleural fluid work up Repeat CXR STAT Pulm consulted for tube management and further recs Ensure pain control (4) Goals of care, counseling/discussion Current Visit: Yes Status: Acute Assessment and Plan: Currently DNR/DNI Palliative input noted and recommendations noted Discharge disposition is to [facility] (5) Acute respiratory failure with hypoxia Current Visit: Yes Status: Acute Assessment and Plan: Improved, not on O2 today 05/27 Patient [facility] to [facility] Multifactorial: Bilateral loculated pleural effusion as seen on chest CT as well as CHF exacerbation with elevated BNP and edema. On hemodialysis by nephrology, continue same Continue antibiotics for treatment of pneumonia Rpt CXR today Pulmonary embolism has been ruled out. Continue oxygen and wean as tolerated) (6) DVT prophylaxis Current Visit: Yes Status: Acute Assessment and Plan: heparin SC (7) History of CVA (cerebrovascular accident) Current Visit: Yes Status: Chronic Assessment and Plan: as history of multiple CVA and is on DAPT allergic to statin has slow psychomotor response ( baseline as per family) Fall precautions (8) Acute on chronic HFrEF (heart failure with reduced ejection fraction) Current Visit: Yes Status: Acute Assessment and Plan: TTE 05/20/17 with EF 45-50%. Normal LV chamber size, wall thickness and low normal/mildly reduced function. ECHO 05/26 noted, EF 45-50%, mod Pulm HTN BNP 3176 nephrology on board for dialysis Continue I/O monitoring rest of the management as per above - Time Spent with Patient Total time spent is greater than 50% in coordination of care (as documented) at patient's floor/unit and/or counseling patient: Plan of Care Discussed with: patient Internal Medicine: Result - Labs CBC & Chem 7: 05/27/18 03:49 05/27/18 03:49 Labs: Short CBC 05/27/18 Range/Units 03:49 WBC 6.7 (4.3-11.1) K/mcL Hgb 8.4 L (12.9-16.9) g/dL Hct 27.6 L (37.5-50.1) % Plt Count 184 (140-400) K/mcL Neutrophils # 4.7 (1.6-8.9) K/mcL BMP 05/27/18 03:49 Sodium 140 Potassium 4.3 Chloride 101 Carbon Dioxide 25 BUN 43 H Creatinine 5.36 H Glucose 84 Calcium 9.1 - ABG Interpretation ABG results: PT/INR, D-dimer PT 13.0 Seconds (9.4-12.1) H 05/25/18 11:57 - Impressions Impressions Needle Aspiration CT 05/26/18 00:00 IMPRESSION: Successful CT guided placement of a bilateral chest tubes D/ / Jack Olvera MD / Jack Olvera MD Interpreting Provider: Jack Olvera MD Needle Aspiration CT 05/26/18 00:00 IMPRESSION: Successful CT guided placement of a bilateral chest tubes D/ / Jack Olvera MD / Jack Olvera MD Interpreting Provider: Jack Olvera MD Consult Discharge Plan - Plan [facility]errals: [facility] [Primary Care Provider] - (1) CAD (coronary artery disease) Qualifiers: Coronary Disease-Associated Artery/Lesion type: bypass graft [place] vs. transplanted heart: [place] heart Associated angina: without angina Qualified Code(s): I25.810 - Atherosclerosis of coronary artery bypass graft(s) without angina pectoris
--- NOTE | 2018-05-27 10:53 | Pulmonology Consult Note ---
<Robin Nieto - Last Filed: 05/27/18 17:54> Date of Encounter: 05/27/18 Time of Encounter: 11:20 Assessment and Plan (1) Acute respiratory failure with hypoxia Current Visit: Yes Status: Acute -Pateint was found to be hypoxic in low 80s at the [place]. [facility] had BMPs of 3176 , and edematous. CTPA was negative for any pulmonary embolus. -Echo showed LVEF of 45% mild left ventricular diastolic dysfunction. Patient' s left atrium was dilated and right ventricle is normal in size. had bilateral locular pleural effusion and is status post thoracostomy. -The patient is on room air satting comfortably. plan to take the tube out tomorrow if patient is stable and output is low (2) Loculated pleural effusion Current Visit: Yes Status: Acute -Patient has a history of pleural effusion. He was in [place] a few months ago and received thoracentesis. The pleural effusions could be multifactorial given the fact that patient has systolic dysfunction in conjunction with end-stage renal disease (GFR : 13) -Recent chest CT showed bilateral loculated effusions which was worse in the lower lobes . Patient is s/p thoracostomy tube placement bilaterally, currently on suction draining approximately a 828 mL in the last 12 hours. Pleural fluid was transudative in nature -The patient had thoracentesis in December of this year as well at the [place] and the cytology showed lymphocytes and reactive mesothelial cells and macrophages -Continue to monitor History of Present Illness Consult date: 05/27/18 Chief complaint: SOB History of present illness: Patient and consist a pleasant 7-year-old male past medical history of coronary artery disease status post CABG, ESRD (MWF), strokes, no stenosis who presented with shortness of breath was found to have bilateral pleural effusion, acute on chronic heart failure with reduced ejection fraction. He was found to have BNP greater then 3000. He underwent thoracentesis by interventional radiology today yesterday. Patient was undergoing dialysis when I met him this morning . he denies no acute distress. Patient is on day 2 of vancomycin and Zosyn. Past Med Surg Social Fam HX - Past Medical History Medical history: CHF, COPD, coronary artery disease, diabetes, dialysis, hyperlipidemia, hypertension, myocardial infarction, renal disease, TIA Additional medical history: descending aortic aneurysm. HEART CATH. ANEMIA. CATARACTS Psychiatric history: anxiety, depression - Past Surgical History Surgical History: appendectomy, coronary bypass (CABG), other Additional surgical history: HEART CATH - Social History Smoking Status: Former smoker Smokeless Tobacco Status: No Alcohol use: none Drug use: none - Family History Father Family Member Ethnicity: Non- Living Status: Hx Family Cardiac Disorders: Yes Hx Family Respiratory Disorders: No Hx Family Cancer: No Hx Family GI Disorders: No Hx Family Endocrine Disorder: Yes Hx Family Neuromuscular Disorders: No Hx Family Neurologic Disorders: No Hx Family HEENT Disorders: No Hx Family Autoimmune Disorders: No Mother Living Status: Hx Family Cardiac Disorders: Yes Hx Family Respiratory Disorders: No Hx Family Cancer: No Hx Family GI Disorders: No Hx Family Endocrine Disorder: No Hx Family Neuromuscular Disorders: No Hx Family Neurologic Disorders: No Hx Family HEENT Disorders: No Hx Family Autoimmune Disorders: No Medications and Allergies Amlodipine Besylate 10 mg PO DAILY 10/22/16 [History] Aspirin Enteric Coated [Aspirin EC] 81 mg PO DAILY 10/22/16 [History] Montelukast [Singulair] 10 mg PO HS 10/22/16 [History] Albuterol Sulfate [Albuterol Inhaler] 2 puff IH Q4-6H PRN 10/30/17 [History] Carvedilol [Coreg] 25 mg PO BID 10/30/17 [History] Acetaminophen [Tylenol 8 Hour] 650 mg PO Q8H PRN 02/05/18 [History] Clopidogrel [Plavix] 75 mg PO DAILY 02/05/18 [History] LevETIRAcetam [Roweepra] 500 mg PO HS 02/05/18 [History] Melatonin [Melatin] 6 mg PO HS 02/05/18 [History] OxyCODONE/APAP 5/325 [Percocet 5/325 MG] 1 each PO Q6HR PRN 7 Days #7 tablet [Rx] Sevelamer [Renvela] 1,600 mg PO TIDWM 02/05/18 [History] Tiotropium [Spiriva] 18 mcg IH 0700 02/05/18 [History] Calcium Acetate [Phos-LO] 667 mg PO TIDWM 05/25/18 [History] Folic Acid/Vit B Complex and C [Dialyvite Tablet] 1 tab PO DAILY 05/25/18 [ History] Hydroxychloroquine [Plaquenuil] 200 mg PO DAILY 05/25/18 [History] Lisinopril [Lisinopril] 2.5 mg PO DAILY 05/25/18 [History] Melatonin 10 mg PO HS PRN 05/25/18 [History] Nitroglycerin [Nitrostat] 0.4 mg SL AD 05/25/18 [History] Ranitidine HCl [Acid Briefcase Sewer] 150 mg PO HS 05/25/18 [History] Rosuvastatin Calcium [Crestor] 10 mg PO DAILY 05/25/18 [History] 3 Allergy/AdvReac Type Severity Reaction Status Date / Time atorvastatin AdvReac See Verified 05/26/18 10:48 Comments simvastatin AdvReac See Verified 05/26/18 10:48 Comments All Systems: The remainder of the systems were reviewed and are negative Physical Examination Vital Signs: Vital Signs, Last 4 Hours Temp Pulse Resp BP Pulse Ox 05/27/18 07:28 98.1 F 60 16 175/67 94 General appearance: no acute distress Auscultation: bilateral: diminished breath sounds Cardiovascular: regular rate and rhythm Gastrointestinal: soft, non-tender, non-distended Results - Laboratory Findings CBC and BMP: 05/27/18 03:49 05/27/18 03:49 PT/INR, D-dimer PT 13.0 Seconds (9.4-12.1) H 05/25/18 11:57 Abnormal lab findings: Abnormal lab results RBC 2.80 M/mcL (4.19-5.50) L 05/27/18 03:49 Hgb 8.4 g/dL (12.9-16.9) L 05/27/18 03:49 Hct 27.6 % (37.5-50.1) L 05/27/18 03:49 MCHC 30.4 g/dL (31.6-35.5) L 05/27/18 03:49 ESR 74 mm/hr (0-10) H 05/25/18 08:05 PT 13.0 Seconds (9.4-12.1) H 05/25/18 11:57 BUN 43 mg/dL (8-23) H 05/27/18 03:49 Creatinine 5.36 mg/dL (0.70-1.30) H 05/27/18 03:49 Est GFR ( Amer) 13 (> 60) L 05/27/18 03:49 Est GFR (Non-Af Amer) 11 (> 60) L 05/27/18 03:49 C-Reactive Protein 45 mg/L (Less than 10) H 05/25/18 08:05 B-Natriuretic Peptide 3176 pg/mL (Less than 100) H 05/25/18 08:05 Vitamin B12 1210 pg/mL (250-1100) H 05/26/18 05:01 Procalcitonin 0.39 ng/mL (<=0.07) H 05/25/18 11:57 Pleural Appearance Hazy (Clear) A 05/26/18 12:36 Pleural RBC 0.004 M/mcL (0.000-0.002) H 05/26/18 12:36 - Clinical Findings Intake & Output: Intake & Output 05/26/18 05/27/18 05/27/18 23:59 07:59 15:59 Intake Total 100 / 100 Output Total 160 / 160 118 / 118 378 / 378 Balance -60 / -60 -118 / -118 -378 / -378 Weight 82.2 kg Consult Discharge Plan - Plan [facility]Primary Care Provider[facility] - <Melanie Davis S - Last Filed: 05/27/18 21:16> Date of Encounter: 05/27/18 All Systems: The remainder of the systems were reviewed and are negative Physical Examination Vital Signs: Vital Signs, Last 4 Hours Temp Pulse Resp BP Pulse Ox 05/27/18 18:41 99.7 F H 71 16 173/78 90 Results - Laboratory Findings CBC and BMP: 05/27/18 03:49 05/27/18 03:49 PT/INR, D-dimer PT 13.0 Seconds (9.4-12.1) H 05/25/18 11:57 Abnormal lab findings: Abnormal lab results RBC 2.80 M/mcL (4.19-5.50) L 05/27/18 03:49 Hgb 8.4 g/dL (12.9-16.9) L 05/27/18 03:49 Hct 27.6 % (37.5-50.1) L 05/27/18 03:49 MCHC 30.4 g/dL (31.6-35.5) L 05/27/18 03:49 ESR 74 mm/hr (0-10) H 05/25/18 08:05 PT 13.0 Seconds (9.4-12.1) H 05/25/18 11:57 BUN 43 mg/dL (8-23) H 05/27/18 03:49 Creatinine 5.36 mg/dL (0.70-1.30) H 05/27/18 03:49 Est GFR ( Amer) 13 (> 60) L 05/27/18 03:49 Est GFR (Non-Af Amer) 11 (> 60) L 05/27/18 03:49 C-Reactive Protein 45 mg/L (Less than 10) H 05/25/18 08:05 B-Natriuretic Peptide 3176 pg/mL (Less than 100) H 05/25/18 08:05 Vitamin B12 1210 pg/mL (250-1100) H 05/26/18 05:01 Procalcitonin 0.39 ng/mL (<=0.07) H 05/25/18 11:57 Pleural Appearance Hazy (Clear) A 05/26/18 12:36 Pleural RBC 0.004 M/mcL (0.000-0.002) H 05/26/18 12:36 - Clinical Findings Intake & Output: Intake & Output 05/27/18 05/27/18 05/27/18 07:59 15:59 23:59 Intake Total 700 / 700 Output Total 118 / 118 4428 / 4428 Balance -118 / -118 -3728 / -3728 Weight 82.2 kg - Attending Attestation I saw and evaluated this patient and my medical decision-making was reviewed with the Resident Physician. I agree with the documented findings, disposition and treatment plan as described except to the extent set forth below. We independently had [id number] contact with the patient Patient seen and examined at bedside Labs, radiology, chart personally reviewed. Pulmonary was consult her for bilateral loculated pleural effusion with associated bilateral lower lobe consolidation concerning for chronic aspiration pneumonia causing this complicated parapneumonic effusion is no clear cut evidence for empyema at the moment fluid for microbiology and gram stain was sent which was not sent yesterday. Reviewed to continue broad-spectrum antibiotics for now we will repeat imaging tomorrow if the drainage stops will be reluctant to give intrapleural TPA as patient is a dialysis patient with the culture did defect and platelets patient has had this for bleeding. Patient does not have any evidence of sepsis no evidence of SIRS secondary to this pleural effusion most likely due to be a sterile fluid looks like it is a chronic possible parapneumonic effusion. His radiologically better we will remove the chest tube. Patient with his chronic kidney disease, with other comorbidities and patient were functional status patient will not be a ideal candidate for any thoracic surgery.
[2018-05-27] MEDS ORDERED: OXYCODONE Oral CONC 10 MG/0.5 ML ORAL.SYG SL PRN (11:05)
--- NOTE | 2018-05-27 11:54 | Palliative Progress Note ---
Date of Encounter: 05/27/18 Time of Encounter: 11:52 - Assessment and plan (1) Goals of care, counseling/discussion Current Visit: Yes Status: Acute Assessment and plan: Patient is still awaiting further recommendation from pulmonary before further goals of care discussions. Patient remains DNRCCA/DNI, and wants to cotinue current level of care, with the goal to transfer to [facility] once stable. (2) ESRD (end stage renal disease) on dialysis Current Visit: No Status: Chronic Assessment and plan: HD today, management per nephrology (3) Dyspnea Current Visit: Yes Status: Acute Assessment and plan: Pt breathing comfortably on room air today, Chest tubes in place and draining. On ABX for pneumonia. Qualifiers: Dyspnea type: shortness of breath Qualified Code(s): R06.02 - Shortness of breath; R06.00 - Dyspnea, unspecified; R06.01 - Orthopnea (4) Loculated pleural effusion Current Visit: Yes Status: Acute Assessment and plan: awaiting pulmonary recommendations Bilateral chest tubes in place, draining bloody fluid. - Time Spent With Patient Total time spent is greater than 50% in coordination of care (as documented) at patient's floor/unit and/or counseling patient: 25 - 35 minutes - Subjective Interval history: Patient was seen in dialysis today, states that he is breathing better, but feels frustrated about having to have dialysis. He refers some discomfort from the chest tube, Denies any other complaints. - Constitutional Vitals: Abnormal lab results RBC 2.80 M/mcL (4.19-5.50) L 05/27/18 03:49 Hgb 8.4 g/dL (12.9-16.9) L 05/27/18 03:49 Hct 27.6 % (37.5-50.1) L 05/27/18 03:49 MCHC 30.4 g/dL (31.6-35.5) L 05/27/18 03:49 ESR 74 mm/hr (0-10) H 05/25/18 08:05 PT 13.0 Seconds (9.4-12.1) H 05/25/18 11:57 BUN 43 mg/dL (8-23) H 05/27/18 03:49 Creatinine 5.36 mg/dL (0.70-1.30) H 05/27/18 03:49 Est GFR ( Amer) 13 (> 60) L 05/27/18 03:49 Est GFR (Non-Af Amer) 11 (> 60) L 05/27/18 03:49 C-Reactive Protein 45 mg/L (Less than 10) H 05/25/18 08:05 B-Natriuretic Peptide 3176 pg/mL (Less than 100) H 05/25/18 08:05 Vitamin B12 1210 pg/mL (250-1100) H 05/26/18 05:01 Procalcitonin 0.39 ng/mL (<=0.07) H 05/25/18 11:57 Pleural Appearance Hazy (Clear) A 05/26/18 12:36 Pleural RBC 0.004 M/mcL (0.000-0.002) H 05/26/18 12:36 Exam: Vitals reviewed General appearance: alert, oriented x3, appears comfortable EENT: oropharynx moist Neck: supple, no lymphadenopathy, no JVD Chest: bilateral chest tubes in place, with about 200ml of output each. Crepitations on lung bases. Cardiovascular: regular rate and rhythm Gastrointestinal: soft, non-tender, non-distended Extremities: no cyanosis, no edema, no clubbing Musculoskeletal: no deformities Neurologic: normal mental status, patient today was less confused and more able to focus in the conversation than yesterday. Psych: mood appropriate, affect normal Palliative Quality Palliative Quality: Screen for Code Status: Yes, Screen for Goals of Care: Yes, Screen for Pain: Yes, If Pain Regimen Started, Initiate Bowel Regimen: NA, Screen for Nausea/Vomitting: Yes - Labs CBC & Chem 7: 05/27/18 03:49 05/27/18 03:49 Labs: Laboratory Results - last 24 hr 05/26/18 05/26/18 05/26/18 11:54 12:35 12:35 WBC RBC Hgb Hct MCV MCH MCHC RDW Plt Count MPV Immature Gran % Seg Neutrophils % Lymphocytes % Monocytes % Eosinophils % Basophils % Neutrophils # Lymphocytes # Monocytes # Eosinophils # Basophils # Sodium Potassium Chloride Carbon Dioxide BUN Creatinine Est GFR ( Amer) Est GFR (Non-Af Amer) BUN/Creatinine Ratio Glucose POC Glucose 88 Calculated Osmolality Calcium Pleural Fluid Volume 60.0 Pleural Appearance Cloudy A Pleural pH 7.60 Pleural RBC 0.006 H Pleural Tot Nuc Cell 88 Pleural Neutrophils 8.0 Pleural Band Neuts Test Not Performed Pleural Eosinophils Test Not Performed Pleural Basophils Test Not Performed Pleural Lymphocytes % 68.0 Pleural Monocytes % 24.0 Pleural Other Cells % Test Not Performed Pleural Total Protein < 3.0 Pleural LDH 108 Pleural Glucose 57 Random Vancomycin 05/26/18 05/26/18 05/27/18 12:36 12:36 03:49 WBC 6.7 RBC 2.80 L Hgb 8.4 L Hct 27.6 L MCV 98.6 MCH 30.0 MCHC 30.4 L RDW 13.4 Plt Count 184 MPV 11.0 Immature Gran % 0.4 Seg Neutrophils % 70.6 Lymphocytes % 12.1 Monocytes % 11.1 Eosinophils % 5.1 Basophils % 0.7 Neutrophils # 4.7 Lymphocytes # 0.8 Monocytes # 0.7 Eosinophils # 0.3 Basophils # 0.1 Sodium Potassium Chloride Carbon Dioxide BUN Creatinine Est GFR ( Amer) Est GFR (Non-Af Amer) BUN/Creatinine Ratio Glucose POC Glucose Calculated Osmolality Calcium Pleural Fluid Volume 60.0 Pleural Appearance Hazy A Pleural pH 7.20 Pleural RBC 0.004 H Pleural Tot Nuc Cell 364 Pleural Neutrophils 4.0 Pleural Band Neuts Test Not Performed Pleural Eosinophils Test Not Performed Pleural Basophils Test Not Performed Pleural Lymphocytes % 88.0 Pleural Monocytes % 8.0 Pleural Other Cells % Test Not Performed Pleural Total Protein < 3.0 Pleural LDH 55 Pleural Glucose 71 Random Vancomycin 05/27/18 05/27/18 03:49 03:49 WBC RBC Hgb Hct MCV MCH MCHC RDW Plt Count MPV Immature Gran % Seg Neutrophils % Lymphocytes % Monocytes % Eosinophils % Basophils % Neutrophils # Lymphocytes # Monocytes # Eosinophils # Basophils # Sodium 140 Potassium 4.3 Chloride 101 Carbon Dioxide 25 BUN 43 H Creatinine 5.36 H Est GFR ( Amer) 13 L Est GFR (Non-Af Amer) 11 L BUN/Creatinine Ratio 8 Glucose 84 POC Glucose Calculated Osmolality 300 Calcium 9.1 Pleural Fluid Volume Pleural Appearance Pleural pH Pleural RBC Pleural Tot Nuc Cell Pleural Neutrophils Pleural Band Neuts Pleural Eosinophils Pleural Basophils Pleural Lymphocytes % Pleural Monocytes % Pleural Other Cells % Pleural Total Protein Pleural LDH Pleural Glucose Random Vancomycin 13 - Impressions Impressions Needle Aspiration CT 05/26/18 00:00 IMPRESSION: Successful CT guided placement of a bilateral chest tubes D/ / Jack Olvera MD / Jack Olvera MD Interpreting Provider: Jack Olvera MD Needle Aspiration CT 05/26/18 00:00 IMPRESSION: Successful CT guided placement of a bilateral chest tubes D/ / Jack Olvera MD / Jack Olvera MD Interpreting Provider: Jack Olvera MD - ABG Interpretation ABG results: PT/INR, D-dimer PT 13.0 Seconds (9.4-12.1) H 05/25/18 11:57 Consult Discharge Plan - Plan [facility]errals: [facility] [Primary Care Provider] -
[2018-05-27] MEDS: amLODIPine 5 MG TABLET PO SCH (13:11)
[2018-05-27] MEDS ORDERED: Aminoglycoside Consult 1 EACH MC ONE (13:55)
[2018-05-27] MEDS: *HR* OxyCODONE/APAP 7.5/325 TABLET PO PRN ×2 (13:58→22:20)
[2018-05-27] MEDS: levETIRAcetam 250 MG TABLET PO SCH (22:17)
[2018-05-27] MEDS: Melatonin 3 MG TABLET PO SCH (22:20)
[2018-05-28 11:13] LABS: Basophils # 0.1 K/mcL (0.0-0.2); Basophils % 0.7 %; Eosinophils # 0.3 K/mcL (0.0-0.6); Eosinophils % 3.4 %; Hematocrit 28.7 % (37.5-50.1); Hemoglobin 8.8 g/dL (12.9-16.9); Immature Granulocytes % 0.4 % (0-4); Immature Platelets 6.8 % (1.1-6.1); Lymphocytes # 0.7 K/mcL (0.6-4.6); Lymphocytes % 8.6 %; Mean Corpuscular HGB Conc 30.7 g/dL (31.6-35.5); Mean Corpuscular Hemoglobin 30.4 pg (28.0-33.3); Mean Corpuscular Volume 99.3 fL (83.0-100.0); Mean Platelet Volume 11.7 fL (9.4-12.4); Monocytes # 0.9 K/mcL (0.0-1.3); Monocytes % 12.4 %; Neutrophils # 5.7 K/mcL (1.6-8.9); Platelet Count 187 K/mcL (140-400); Red Blood Count 2.89 M/mcL (4.19-5.50); Red Cell Distribution Width 13.3 % (11.5-14.5); Segmented Neutrophils % 74.5 %
--- NOTE | 2018-05-28 12:31 | Internal Med Progress Note ---
Hospitalist Progress Note - Encounter Date of Encounter: 05/28/18 Time of Encounter: 08:05 - Subjective Interval History: 73 year-old male with history of coronary artery disease status post CABG, end- stage renal disease on hemodialysis, psychomotor retardation from multiple strokes [facility] the [facility] who presented with shortness of breath found to be in hypoxic respiratory failure and admitted for bilateral nucleated pleural effusion, CHF exacerbation as well as suspected pneumonia. He is seen and examined at the bedside s/p Chest tube placement bilaterally by IR on 05/26, connected to suction He has no new complaints this morning, remains afebrile pain is controlled, chest tubes still draining,. pleural fluid cultures and cytology pending. Breathing is improved, no longer on O2 - Exam Vitals: Temp Pulse Resp BP Pulse Ox 99.6 F 67 18 167/73 96 05/27/18 23:42 05/27/18 23:42 05/27/18 23:42 05/27/18 23:42 05/27/18 23:42 Exam: General: Patient is alert, oriented, no acute distress Head: atraumatic, normocephalic, Eye: normal appearance, PERRL, no scleral icterus, no conjunctival injection ENT: mucous membranes moist, normal external ear exam Neck: normal inspection, trachea midline, full ROM, NO JVD Chest:post chest wall with wound dressings, R clean and dry, L slightly soaked, Chest tubes in situ, connected to sunction. symmetric chest rise, well healed CABG scar Respiratory: Decreased air entry bilaterally, no added sound Heart: S1, S2 only, no m/g/r Abdomen: Not tender, no palpably enalrged organs MSK: Spontaneously moving all extremities. no edema Skin: warm, dry, intact. left forearm fistula with audible bruit adn palpable thrill , no rash Neuro: Alert and oriented x3 ( know s this is [facility], president is bev murillo, year is 2017) . No focal weakness or speech deficits Psych: Patient's affect is normal - Assessment and Plan (1) CAD (coronary artery disease) Current Visit: Yes Status: Chronic Assessment and Plan: s/p 3vCABG at [facility] on 08/30/16 thoracoadominal aneurysm repair at [facility] November 2016. Continue ASA, plavix , continue coreg patient allergic to statins (2) Spinal stenosis at L4-L5 level Current Visit: Yes Status: Chronic Assessment and Plan: Chronic, stable history of multiple falls - last admitted at [facility] for evaluation of falls PT/OT currently strength is 5/5 in bilateral lower extremities fall precautions vitamin D (3) Loculated pleural effusion Current Visit: Yes Status: Acute Assessment and Plan: CTPA performed on 05/25/18 showed - Evidence of bilateral loculated effusions worse in the lower lobes and worse in the right lower lobe. Lower lobe atelectatic and/or consolidative changes worse in the right lower lobe. s/p thoracocentesis in 12/25- cytology showed, Lymphocytes, reactive mesothelial cells and macrophages seen. cx negative s/p chest tube placement 05/26 Prior cytology was negative Looks transudative from current pleural fluid work up Repeat CXR STAT 05/27 shows improvement in effusion, possible consolidations Pulm consulted for tube management and further recs, appreciate input Ensure pain control Continue tube mgt (4) Goals of care, counseling/discussion Current Visit: Yes Status: Acute Assessment and Plan: Currently DNR/DNI Palliative input noted and recommendations noted Discharge disposition is to [facility] (5) Acute respiratory failure with hypoxia Current Visit: Yes Status: Acute Assessment and Plan: Improved, not on O2 since 05/27 [facility] Multifactorial: Bilateral loculated pleural effusion as seen on chest CT as well as CHF exacerbation with elevated BNP and edema. On hemodialysis by nephrology, continue same Continue antibiotics for treatment of pneumonia Pulmonary embolism has been ruled out. Continue oxygen and wean as tolerated) (6) DVT prophylaxis Current Visit: Yes Status: Acute Assessment and Plan: heparin SC (7) History of CVA (cerebrovascular accident) Current Visit: Yes Status: Chronic Assessment and Plan: as history of multiple CVA and is on DAPT allergic to statin has slow psychomotor response ( baseline as per family) Fall precautions (8) Acute on chronic HFrEF (heart failure with reduced ejection fraction) Current Visit: Yes Status: Acute Assessment and Plan: TTE 05/20/17 with EF 45-50%. Normal LV chamber size, wall thickness and low normal/mildly reduced function. ECHO 05/26 noted, EF 45-50%, mod Pulm HTN BNP 3176 nephrology on board for dialysis Continue I/O monitoring rest of the management as per above (9) Pneumonia Current Visit: Yes Status: Acute Assessment and Plan: organism unknown Received vanco and Zosyn for 3 days now on Zosyn only, continue same Cultures negative till date - Time Spent with Patient Total time spent is greater than 50% in coordination of care (as documented) at patient's floor/unit and/or counseling patient: Plan of Care Discussed with: patient Internal Medicine: Result - Labs CBC & Chem 7: 05/28/18 03:41 05/28/18 03:41 Labs: Short CBC 05/28/18 Range/Units 03:41 WBC 7.6 (4.3-11.1) K/mcL Hgb 8.8 L (12.9-16.9) g/dL Hct 28.7 L (37.5-50.1) % Plt Count 187 (140-400) K/mcL Neutrophils # 5.7 (1.6-8.9) K/mcL BMP 05/28/18 03:41 Sodium 139 Potassium 4.0 Chloride 99 Carbon Dioxide 30 H BUN 24 H Creatinine 4.20 H Glucose 97 Calcium 9.0 - ABG Interpretation ABG results: PT/INR, D-dimer PT 13.0 Seconds (9.4-12.1) H 05/25/18 11:57 - Impressions Impressions Chest X-Ray 05/27/18 11:11 IMPRESSION: Bilateral chest tubes. No definite pneumothorax. Trace right lung base pleural effusion, improved. Mild to moderate pulmonary vascular congestion. Stable cardiomegaly. Atelectasis at the right lung base. D/ / Win Martinez MD / Win Martinez MD Interpreting Provider: Win Martinez MD Consult Discharge Plan - Plan [facility]errals: [facility] [Primary Care Provider] - (1) CAD (coronary artery disease) Qualifiers: Coronary Disease-Associated Artery/Lesion type: bypass graft [place] vs. transplanted heart: [place] heart Associated angina: without angina Qualified Code(s): I25.810 - Atherosclerosis of coronary artery bypass graft(s) without angina pectoris (9) Pneumonia Qualifiers: Pneumonia type: due to unspecified organism Laterality: right Lung location: lower lobe of lung Qualified Code(s): J18.1 - Lobar pneumonia, unspecified org anism
[2018-05-28] MEDS: *HR* Heparin 5,000 UNIT/ML VIAL SQ SCH ×3 (13:01→22:01)
[2018-05-28] MEDS: Piperacillin/Tazobactam 3.375 GM in 0.9 % Sodium Chloride Mini Bag 100 ML IVPB SCH ×2 (13:01→16:42)
[2018-05-28] MEDS: Aspirin Enteric Coated 81 MG Tablet PO SCH (13:04)
[2018-05-28] MEDS: amLODIPine 5 MG TABLET PO SCH (13:04)
[2018-05-28] MEDS: Renal Vitamin 1 CAP CAPSULE PO SCH (13:08)
--- NOTE | 2018-05-28 13:20 | Pulmonology Progress Note ---
<Robin Nieto - Last Filed: 05/28/18 20:02> Date of Encounter: 05/28/18 Time of Encounter: 08:30 Assessment and Plan (1) Acute respiratory failure with hypoxia Current Visit: Yes Status: Acute -Resolved. Patient had bilateral pleural effusions and is status post CT-guided thoracostomy. Satting at 96% on 2L NC -Plan is to take the tube out tomorrow . The patient is tentatively stable -Patient's pleural fluid culture from L and R side were negative for any malignant pathology. (2) Loculated pleural effusion Current Visit: Yes Status: Acute -likely multifactorial due the pneumonia causing parapneumonic effusion. Pleural fluid analysis showed no evidence for empyema, with (pH 7.2 for total nucleated 364 with not too many neutrophils. pleural fluid (both left and right side )was negative for malignancy. There are evidence of midline mesothelial cells with leukocytes and histiocytes. Pleural cultures pending. -Patient was on vancomycin and Zosyn until yesterday but given the fact that he clinically does not appear to have any symptoms of pneumonia, we can discontinue his vancomycin and let him continue Zosyn. . -pH and serum protein studies pending to determine exudative or transudative nature of the fluid. -If loculation comes back, given his comorbidities and history of her kidney disease, he will not be a good candidate for VATS decortication procedure. Subjective Principal diagnosis: difficulty in breathing Interval history: No acute events overnight. Currently on 2 L nasal cannula satting at 95%. Chest tubes are in place without any complications. Denies any worsening chest pain, shortness of breath or palpitation. Objective PUL Vital signs: Last Vital Signs Temp 99.6 F 05/27/18 23:42 Pulse 67 05/27/18 23:42 Resp 18 05/27/18 23:42 BP 167/73 05/27/18 23:42 Pulse Ox 96 05/27/18 23:42 General appearance: no acute distress Effort: normal Auscultation: bilateral: diminished breath sounds Cardiovascular: regular rate and rhythm Gastrointestinal: soft, non-tender, non-distended Extremities: no cyanosis, no edema, no clubbing Results - Laboratory Findings CBC and BMP: 05/28/18 03:41 05/28/18 03:41 PT/INR, D-dimer PT 13.0 Seconds (9.4-12.1) H 05/25/18 11:57 Abnormal lab findings: Abnormal lab results RBC 2.89 M/mcL (4.19-5.50) L 05/28/18 03:41 Hgb 8.8 g/dL (12.9-16.9) L 05/28/18 03:41 Hct 28.7 % (37.5-50.1) L 05/28/18 03:41 MCHC 30.7 g/dL (31.6-35.5) L 05/28/18 03:41 Immature Plt Fraction 6.8 % (1.1-6.1) H 05/28/18 03:41 ESR 74 mm/hr (0-10) H 05/25/18 08:05 PT 13.0 Seconds (9.4-12.1) H 05/25/18 11:57 Carbon Dioxide 30 mEq/L (23-29) H 05/28/18 03:41 BUN 24 mg/dL (8-23) H 05/28/18 03:41 Creatinine 4.20 mg/dL (0.70-1.30) H 05/28/18 03:41 Est GFR ( Amer) 17 (> 60) L 05/28/18 03:41 Est GFR (Non-Af Amer) 14 (> 60) L 05/28/18 03:41 C-Reactive Protein 45 mg/L (Less than 10) H 05/25/18 08:05 B-Natriuretic Peptide 3176 pg/mL (Less than 100) H 05/25/18 08:05 Vitamin B12 1210 pg/mL (250-1100) H 05/26/18 05:01 Procalcitonin 0.39 ng/mL (<=0.07) H 05/25/18 11:57 Pleural Appearance Hazy (Clear) A 05/26/18 12:36 Pleural RBC 0.004 M/mcL (0.000-0.002) H 05/26/18 12:36 - Microbiology Findings Microbiology Findings: Microbiology, Last 48 Hours 05/26/18 12:35 Body Fluid Culture - Preliminary Pleural Fluid 05/26/18 12:36 Body Fluid Culture - Preliminary Pleural Fluid - Clinical Findings Intake & Output: Intake & Output 05/27/18 05/28/18 05/28/18 23:59 07:59 15:59 Weight 80.9 kg Consult Discharge Plan - Plan [facility]errals: [facility] [Primary Care Provider] - <Melanie Davis - Last Filed: 05/28/18 20:31> Objective PUL Vital signs: Last Vital Signs Temp 98.3 F 05/28/18 20:05 Pulse 62 05/28/18 20:05 Resp 16 05/28/18 20:05 BP 159/62 05/28/18 20:05 Pulse Ox 98 05/28/18 20:05 Results - Laboratory Findings CBC and BMP: 05/28/18 03:41 05/28/18 03:41 PT/INR, D-dimer PT 13.0 Seconds (9.4-12.1) H 05/25/18 11:57 Abnormal lab findings: Abnormal lab results RBC 2.89 M/mcL (4.19-5.50) L 05/28/18 03:41 Hgb 8.8 g/dL (12.9-16.9) L 05/28/18 03:41 Hct 28.7 % (37.5-50.1) L 05/28/18 03:41 MCHC 30.7 g/dL (31.6-35.5) L 05/28/18 03:41 Immature Plt Fraction 6.8 % (1.1-6.1) H 05/28/18 03:41 ESR 74 mm/hr (0-10) H 05/25/18 08:05 PT 13.0 Seconds (9.4-12.1) H 05/25/18 11:57 Carbon Dioxide 30 mEq/L (23-29) H 05/28/18 03:41 BUN 24 mg/dL (8-23) H 05/28/18 03:41 Creatinine 4.20 mg/dL (0.70-1.30) H 05/28/18 03:41 Est GFR ( Amer) 17 (> 60) L 05/28/18 03:41 Est GFR (Non-Af Amer) 14 (> 60) L 05/28/18 03:41 Lactate Dehydrogenase 97 Units/L (140-271) L 05/28/18 13:52 C-Reactive Protein 45 mg/L (Less than 10) H 05/25/18 08:05 B-Natriuretic Peptide 3176 pg/mL (Less than 100) H 05/25/18 08:05 Vitamin B12 1210 pg/mL (250-1100) H 05/26/18 05:01 Procalcitonin 0.39 ng/mL (<=0.07) H 05/25/18 11:57 Pleural Appearance Hazy (Clear) A 05/26/18 12:36 Pleural RBC 0.004 M/mcL (0.000-0.002) H 05/26/18 12:36 - Microbiology Findings Microbiology Findings: Microbiology, Last 48 Hours 05/26/18 12:36 Body Fluid Culture - Preliminary Pleural Fluid 05/26/18 12:35 Body Fluid Culture - Preliminary Pleural Fluid - Clinical Findings Intake & Output: Intake & Output 05/28/18 05/28/18 05/28/18 07:59 15:59 23:59 Output Total 102 / 102 Balance -102 / -102 - Attending Attestation I saw and evaluated this patient and my medical decision-making was reviewed with the Resident Physician. I agree with the documented findings, disposition and treatment plan as described except to the extent set forth below. We independently had [id number] contact with the patient Patient has bilateral loculated effusion supported by bilateral tube thoracostomy repeat imaging tomorrow if there is no much output and adequate radiological resolution will remove the chest tube out and the antibiotic escalated to Unasyn when he gets discharged send him home least 2 weeks of by mouth Augmentin there is no clinical biochemical evidence of empyema.
--- NOTE | 2018-05-28 13:28 | Event Note ---
Date of Encounter: 05/28/18 Time of Encounter: 13:25 Mr. Rea was seen and examined today at the bedside. He denies any new complaints or concerns today and states that he is breathing well. His code status is DNR-Comfort Care - Arrest DNI. He has had no change in his goals of care, and is planning to return to [facility] for rehab after discharge in hopes of getting stronger and returning home in the future. He currently has two chest tubes that are being managed by pulmonology team. Palliative care will sign off on this patient. Appreciate the consult and the opportunity to work with this patient and his family.
[2018-05-28] MEDS ORDERED: amLODIPine 5 MG TABLET PO ONE (13:55)
[2018-05-28] MEDS ORDERED: Acetaminophen 325 MG TABLET PO ONE (13:55)
[2018-05-28] MEDS ORDERED: Piperacillin/Tazobactam 3.375 GM VIAL IVPB ONE (13:55)
[2018-05-28] MEDS ORDERED: 0.9 % Sodium Chloride (Mini-Bag +) 100 ML IVBAG IVC ONE (13:55)
[2018-05-28] MEDS ORDERED: *HR* Heparin 5,000 UNIT/ML VIAL IVP ONE (13:55)
[2018-05-28] MEDS ORDERED: Renal Vitamin 1 CAP CAPSULE PO ONE (13:55)
[2018-05-28] MEDS ORDERED: Aspirin Enteric Coated 81 MG Tablet PO ONE (13:55)
[2018-05-28 14:58] LABS: Lactate Dehydrogenase 97 Units/L (140-271); Total Protein 6.4 g/dL (6.4-8.9)
[2018-05-28] MEDS: levETIRAcetam 250 MG TABLET PO SCH (22:03)
[2018-05-28] MEDS: Melatonin 3 MG TABLET PO SCH (22:03)
[2018-05-29 04:35] LABS: Basophils # 0.1 K/mcL (0.0-0.2); Basophils % 0.7 %; Eosinophils # 0.4 K/mcL (0.0-0.6); Eosinophils % 5.7 %; Hematocrit 29.3 % (37.5-50.1); Immature Granulocytes % 0.4 % (0-4); Lymphocytes # 0.7 K/mcL (0.6-4.6); Lymphocytes % 9.7 %; Mean Corpuscular HGB Conc 30.7 g/dL (31.6-35.5); Mean Corpuscular Volume 97.7 fL (83.0-100.0); Mean Platelet Volume 10.8 fL (9.4-12.4); Monocytes # 0.8 K/mcL (0.0-1.3); Monocytes % 10.9 %; Neutrophils # 5.3 K/mcL (1.6-8.9); Platelet Count 179 K/mcL (140-400); Segmented Neutrophils % 72.6 %
[2018-05-29 04:55] LABS: Calcium 9.1 mg/dL (8.6-10.3); Potassium 4.3 mEq/L (3.5-5.1)
[2018-05-29 06:03] LABS: Fluid Source for Albumin LEFT PLEURAL
[2018-05-29 06:03] LABS: Fluid Source for Albumin RIGHT PLEURAL
[2018-05-29] MEDS: Piperacillin/Tazobactam 3.375 GM in 0.9 % Sodium Chloride Mini Bag 100 ML IVPB SCH (06:23)
[2018-05-29] MEDS: *HR* Heparin 5,000 UNIT/ML VIAL SQ SCH ×3 (06:27→19:56)
[2018-05-29] MEDS ORDERED: 0.9 % Sodium Chloride 2,000 ML ONE (07:12)
--- NOTE | 2018-05-29 07:34 | Pulmonology Progress Note ---
Date of Encounter: 05/29/18 Time of Encounter: 07:25 Assessment and Plan (1) Loculated pleural effusion Current Visit: Yes Status: Acute Bilateral loculated pleural effusion the repeat CTs chest showed adequate resolution is no much drainage from the left-sided chest tube and minimal drainage on the right side at about bore chest tube with no acute events. Patient should be discharged to his long term on at least 2 weeks of by mouth Augmentin. Patient should follow-up with [place] pul[facility]ology in 6-8 weeks. Subjective Principal diagnosis: difficulty in breathing Interval history: Patient is doing well his chest tube did not drain much in the repeat CT scan showed adequate resolution of pleural effusion. Patient denies any fever or chills denies any chest pain or chest tightness when I was examining him he was getting his dialysis. Objective PUL Vital signs: Last Vital Signs Temp 98.5 F 05/29/18 06:45 Pulse 62 05/29/18 06:45 Resp 16 05/29/18 06:45 BP 166/71 05/29/18 06:45 Pulse Ox 98 05/29/18 06:45 Auscultation: bilateral: diminished breath sounds (biasilar diminished sounds ) Results - Laboratory Findings CBC and BMP: 05/29/18 04:14 05/29/18 04:14 PT/INR, D-dimer PT 13.0 Seconds (9.4-12.1) H 05/25/18 11:57 Abnormal lab findings: Abnormal lab results RBC 3.00 M/mcL (4.19-5.50) L 05/29/18 04:14 Hgb 9.0 g/dL (12.9-16.9) L 05/29/18 04:14 Hct 29.3 % (37.5-50.1) L 05/29/18 04:14 MCHC 30.7 g/dL (31.6-35.5) L 05/29/18 04:14 Immature Plt Fraction 6.8 % (1.1-6.1) H 05/28/18 03:41 ESR 74 mm/hr (0-10) H 05/25/18 08:05 PT 13.0 Seconds (9.4-12.1) H 05/25/18 11:57 Carbon Dioxide 31 mEq/L (23-29) H 05/29/18 04:14 BUN 32 mg/dL (8-23) H 05/29/18 04:14 Creatinine 5.41 mg/dL (0.70-1.30) H 05/29/18 04:14 Est GFR ( Amer) 13 (> 60) L 05/29/18 04:14 Est GFR (Non-Af Amer) 10 (> 60) L 05/29/18 04:14 Lactate Dehydrogenase 97 Units/L (140-271) L 05/28/18 13:52 C-Reactive Protein 45 mg/L (Less than 10) H 05/25/18 08:05 B-Natriuretic Peptide 3176 pg/mL (Less than 100) H 05/25/18 08:05 Vitamin B12 1210 pg/mL (250-1100) H 05/26/18 05:01 Procalcitonin 0.39 ng/mL (<=0.07) H 05/25/18 11:57 Pleural Appearance Hazy (Clear) A 05/26/18 12:36 Pleural RBC 0.004 M/mcL (0.000-0.002) H 05/26/18 12:36 - Microbiology Findings Microbiology Findings: Microbiology, Last 48 Hours 05/26/18 12:36 Body Fluid Culture - Preliminary Pleural Fluid 05/26/18 12:35 Body Fluid Culture - Preliminary Pleural Fluid - Clinical Findings Intake & Output: Intake & Output 05/28/18 05/28/18 05/29/18 15:59 23:59 07:59 Intake Total 100 / 100 Output Total 102 / 102 Balance -2 / -2 Weight 80.1 kg Consult Discharge Plan - Plan [facility]: [facility] [Primary Care Provider[facility] -
--- NOTE | 2018-05-29 08:16 | Nephrology Progress Note ---
Addendum entered and electronically signed by Pankaj Tolliver MD 05/29/18 21:39: I examined this patient and discussed the medical decision-making with MINOO Haines. I agree with the documented findings, disposition and treatment plan as described except to the extent set forth below . Original Note: Date of Encounter: 05/29/18 Time of Encounter: 08:14 - Assessment and Plan (1) ESRD (end stage renal disease) on dialysis Current Visit: No Status: Chronic HD MWF. Renal vitamins. Renal dose medications. Renal diet. Additional dialysis and ultrafiltration as needed. HD ordered for today. (2) Diabetes mellitus Current Visit: No Status: Acute Per the primary team. Qualifiers: Qualified Code(s): E11.8 - Type 2 diabetes mellitus with unspecified complications (3) Hypertension Current Visit: No Status: Acute BP stable, BP 166/71. Qualifiers: Qualified Code(s): I10 - Essential (primary) hypertension (4) Dyspnea Current Visit: Yes Status: Acute 2 Chest tubes placed by IR 05/26/18. Qualifiers: Qualified Code(s): R06.02 - Shortness of breath; R06.00 - Dyspnea, unspecified; R06.01 - Orthopnea (5) Loculated pleural effusion Current Visit: Yes Status: Acute See above. Subjective Principal diagnosis: difficulty in breathing Interval history: Pt seen and examined doing well. Denies SOB or CP. Objective - Vital Signs Vital signs: Vital Signs Temp Pulse Resp BP Pulse Ox 05/29/18 06:45 98.5 F 62 16 166/71 98 05/29/18 03:58 97.6 F 62 16 178/64 94 05/28/18 23:52 98.1 F 64 16 170/81 93 05/28/18 20:05 98.3 F 62 16 159/62 98 05/28/18 16:09 97.7 F 59 17 162/61 95 Intake and Output 05/28/18 05/29/18 05/29/18 23:59 07:59 15:59 Intake Total 100 / 100 Output Total 102 / 102 Balance -2 / -2 Intake: IV Fluids 100 / 100 Zosyn 3.375 GM In 0.9 % Sodium 100 / 100 Chloride (Mini-Bag +) 100 ML @ 25 mls/hr IVPB Q12H ARY Rx#: [id number] Output: Chest Tube Drainage 102 / 102 Left Posterior Chest #1 30 / 30 Right Posterior Chest #2 72 / 72 Other: # Voids 1 Weight 80.1 kg Patient Weight 05/29/18 23:59 Weight 80.1 kg - General Appearance General appearance: Present: well-developed, well-nourished EENT: Present: ATNC, hearing intact, vision intact Neck: Present: supple Respiratory: Present: clear Cardiology: Present: no edema, normal S1, normal S2 Dialysis Vascular Access: Arteriovenous Fistula thrill: Yes bruit: Yes Gastrointestinal: Present: normoactive bowel sounds, no tenderness, no guarding Integumentary: Present: no rash, warm and dry Neurologic: Present: alert and oriented x3 Psychiatric: Present: mood/affect appropriate, cooperative - Lab 05/29/18 04:14 05/29/18 04:14 Most recent lab results Calcium 9.1 mg/dL (8.6-10.3) 05/29/18 04:14 Phosphorus 3.4 mg/dL (2.7-4.5) 05/26/18 05:01 Magnesium 2.3 mg/dL (1.6-2.6) 05/26/18 05:01 Consult Discharge Plan - Plan Referrals: [facility] [Primary Care Provider] -
[2018-05-29] MEDS ORDERED: 0.9 % Sodium Chloride 250 ML IVC PRN (08:41)
[2018-05-29] MEDS ORDERED: 0.9 % Sodium Chloride 1,000 ML PRIME SCH (08:45)
--- NOTE | 2018-05-29 08:58 | Internal Med Progress Note ---
Hospitalist Progress Note - Encounter Date of Encounter: 05/29/18 Time of Encounter: 08:58 - Subjective Interval History: 73 year-old male with history of coronary artery disease status post CABG, end- stage renal disease on hemodialysis, psychomotor retardation from multiple strokes resident at the [facility] who presented with shortness of breath found to be in hypoxic respiratory failure and admitted for bilateral nucleated pleural effusion, CHF exacerbation as well as suspected pneumonia. He is seen and examined at the bedside s/p Chest tube placement bilaterally by IR on 05/26, connected to suction He has no new complaints this morning, remains afebrile pain is controlled, chest tubes still draining,. pleural fluid cultures and cytology pending. Breathing is improved, no longer on O2 He is being seen and managed by pulm, Chest CT this mrn showed interval decrease in the size of the pleural effusions , new air within the R pleural effusion and stable LLL consolidation, soft tissue anasarca. - Exam Vitals: Temp Pulse Resp BP Pulse Ox 98.5 F 62 16 166/71 98 05/29/18 06:45 05/29/18 06:45 05/29/18 06:45 05/29/18 06:45 05/29/18 06:45 Exam: General: Patient is alert, oriented, no acute distress Head: atraumatic, normocephalic, Eye: normal appearance, PERRL, no scleral icterus, no conjunctival injection ENT: mucous membranes moist, normal external ear exam Neck: normal inspection, trachea midline, full ROM, NO JVD Chest:post chest wall with wound dressings, R clean and dry, L slightly soaked, Chest tubes in situ, connected to sunction. symmetric chest rise, well healed CABG scar Respiratory: Decreased air entry bilaterally, no added sound Heart: S1, S2 only, no m/g/r Abdomen: Not tender, no palpably enalrged organs MSK: Spontaneously moving all extremities. no edema Skin: warm, dry, intact. left forearm fistula with audible bruit adn palpable thrill , no rash Neuro: Alert and oriented x3 ,No focal weakness or speech deficits, mild Left hand contracture Psych:Flat affect this mrn - Assessment and Plan (1) CAD (coronary artery disease) Current Visit: Yes Status: Chronic Assessment and Plan: s/p 3vCABG at [facility] on 08/30/16 thoracoadominal aneurysm repair at [facility] November 2016. Continue ASA, plavix , continue coreg patient allergic to statins (2) Spinal stenosis at L4-L5 level Current Visit: Yes Status: Chronic Assessment and Plan: Chronic, stable history of multiple falls - last admitted at [facility] for evaluation of falls PT/OT recommended SNF currently strength is 5/5 in bilateral lower extremities fall precautions vitamin D (3) Loculated pleural effusion Current Visit: Yes Status: Acute Assessment and Plan: CTPA performed on 05/25/18 showed - Evidence of bilateral loculated effusions worse in the lower lobes and worse in the right lower lobe. Lower lobe atelectatic and/or consolidative changes worse in the right lower lobe. s/p thoracocentesis in 12/25- cytology showed, Lymphocytes, reactive mesothelial cells and macrophages seen. cx negative s/p chest tube placement 05/26 Prior cytology was negative Looks transudative from current pleural fluid work up Repeat CXR STAT 05/27 shows improvement in effusion, possible consolidations Chest CT from today 05/29 noted Pulm consulted for tube management and further recs, appreciate input Ensure pain control Continue tube mgt per pulm Continue zosyn (4) Goals of care, counseling/discussion Current Visit: Yes Status: Acute Assessment and Plan: Currently DNR/DNI Palliative input noted and recommendations noted Discharge disposition is to [facility] (5) Acute respiratory failure with hypoxia Current Visit: Yes Status: Resolved Assessment and Plan: Improved, not on O2 since 05/27 Patient [facility] to [facility] Multifactorial: Bilateral loculated pleural effusion as seen on chest CT as well as CHF exacerbation with elevated BNP and edema. On hemodialysis by nephrology, continue same Continue antibiotics for treatment of pneumonia Pulmonary embolism has been ruled out. Continue oxygen and wean as tolerated) (6) DVT prophylaxis Current Visit: Yes Status: Acute Assessment and Plan: heparin SC (7) History of CVA (cerebrovascular accident) Current Visit: Yes Status: Chronic Assessment and Plan: as history of multiple CVA and is on DAPT allergic to statin has slow psychomotor response ( baseline as per family) Fall precautions (8) Acute on chronic HFrEF (heart failure with reduced ejection fraction) Current Visit: Yes Status: Acute Assessment and Plan: TTE 05/20/17 with EF 45-50%. Normal LV chamber size, wall thickness and low normal/mildly reduced function. ECHO 05/26 noted, EF 45-50%, mod Pulm HTN BNP 3176 nephrology on board for dialysis Continue I/O monitoring rest of the management as per above (9) Pneumonia Current Visit: Yes Status: Acute Assessment and Plan: organism unknown Received vanco and Zosyn for 3 days now on Zosyn only, continue same Cultures negative till date - Time Spent with Patient Total time spent is greater than 50% in coordination of care (as documented) at patient's floor/unit and/or counseling patient: Plan of Care Discussed with: patient Internal Medicine: Result - Labs CBC & Chem 7: 05/29/18 04:14 05/29/18 04:14 Labs: Short CBC 05/28/18 05/29/18 Range/Units 03:41 04:14 WBC 7.6 7.3 (4.3-11.1) K/mcL Hgb 8.8 L 9.0 L (12.9-16.9) g/dL Hct 28.7 L 29.3 L (37.5-50.1) % Plt Count 187 179 (140-400) K/mcL Neutrophils # 5.7 5.3 (1.6-8.9) K/mcL BMP 05/28/18 05/29/18 03:41 04:14 Sodium 139 140 Potassium 4.0 4.3 Chloride 99 99 Carbon Dioxide 30 H 31 H BUN 24 H 32 H Creatinine 4.20 H 5.41 H Glucose 97 81 Calcium 9.0 9.1 - ABG Interpretation ABG results: PT/INR, D-dimer PT 13.0 Seconds (9.4-12.1) H 05/25/18 11:57 - Impressions Impressions Chest CT 05/29/18 07:30 IMPRESSION: 1. Interval placement of bilateral pigtail chest tubes secondary to partially loculated pleural effusions. Interval decrease in size of the pleural effusions with only a small amount of fluid remaining around each tube. Small loculated areas of pleural fluid remain bilaterally which will not likely be completely resolved with the current chest tubes. 2. New air within the pleural effusion on the right which is most likely secondary to lack of pulmonary reexpansion related to trapped lung from rounded atelectasis/collapse of the right lower lobe which is chronic. 3. Stable left lower lobe consolidation, either due to atelectasis or pneumonia. 4. Marked cardiomegaly with evidence of CHF. 5. Stable appearance of the aorta status post endovascular stent graft repair. 6. Soft tissue anasarca. D/ / 05/29/2018 08:31:23 Edwin Haji MD / dinorah Interpreting Provider: Edwin Haji MD Consult Discharge Plan - Plan [facility]errals: [facility] [Primary Care Provider] - _ (1) CAD (coronary artery disease) Qualifiers: Coronary Disease-Associated Artery/Lesion type: bypass graft [place] vs. transplanted heart: [place] heart Associated angina: without angina Qualified Code(s): I25.810 - Atherosclerosis of coronary artery bypass graft(s) without angina pectoris (9) Pneumonia Qualifiers: Pneumonia type: due to unspecified organism Laterality: right Lung location: lower lobe of lung Qualified Code(s): J18.1 - Lobar pneumonia, unspecified organism
[2018-05-29] MEDS: Renal Vitamin 1 CAP CAPSULE PO SCH (09:16)
[2018-05-29] MEDS: Aspirin Enteric Coated 81 MG Tablet PO SCH (09:16)
[2018-05-29] MEDS: amLODIPine 5 MG TABLET PO SCH (09:17)
[2018-05-29] MEDS: *HR* OxyCODONE/APAP 7.5/325 TABLET PO PRN (09:17)
[2018-05-29] MEDS ORDERED: Amoxicillin/Clavulanate 500 MG TABLET PO SCH (16:00)
[2018-05-29] MEDS: Acetaminophen 325 MG TABLET PO PRN (16:40)
[2018-05-29] MEDS: levETIRAcetam 250 MG TABLET PO SCH (19:55)
[2018-05-29] MEDS: Melatonin 3 MG TABLET PO SCH (19:55)
[2018-05-30] MEDS: *HR* Heparin 5,000 UNIT/ML VIAL SQ SCH (05:44)
--- NOTE | 2018-05-30 06:59 | Nephrology Progress Note ---
Addendum entered and electronically signed by Pankaj Tolliver MD 05/30/18 20:33: I examined this patient and discussed the medical decision-making with MINOO Carr. I agree with the documented findings, disposition and treatment plan as described except to the extent set forth below. Original Note: Date of Encounter: 05/30/18 Time of Encounter: 06:56 - Assessment and Plan (1) ESRD (end stage renal disease) on dialysis Current Visit: No Status: Chronic Plan for HD on Friday Continue renal diet Continue strict I/Os Avoid nephrotoxins if possible (2) Diabetes mellitus Current Visit: No Status: Acute Per primary team. Qualifiers: Diabetes mellitus type: type 2 Diabetes mellitus fci insulin use: without fci use Diabetes mellitus complication status: with unspecified complications Qualified Code(s): E11.8 - Type 2 diabetes mellitus with unspecified complications (3) Dyspnea Current Visit: Yes Status: Acute per pulmonary team Qualifiers: Dyspnea type: shortness of breath Qualified Code(s): R06.02 - Shortness of breath; R06.00 - Dyspnea, unspecified; R06.01 - Orthopnea Subjective Principal diagnosis: difficulty in breathing Interval history: Patient seen and examined, sleeps through exam Objective - Vital Signs Vital signs: Vital Signs Temp Pulse Resp BP Pulse Ox 05/30/18 04:16 99.2 F 62 18 106/65 98 05/30/18 00:30 98.2 F 59 17 171/73 99 05/29/18 19:35 99.1 F 49 17 156/64 96 05/29/18 15:24 99.0 F 86 16 163/65 96 05/29/18 14:08 97.4 F L 18 178/69 05/29/18 13:50 149/67 05/29/18 13:35 145/54 05/29/18 13:20 143/66 05/29/18 13:05 141/59 05/29/18 12:50 143/53 05/29/18 12:35 162/70 05/29/18 12:20 140/62 05/29/18 12:05 146/66 05/29/18 11:50 136/64 05/29/18 11:35 139/66 05/29/18 11:20 149/67 05/29/18 11:05 138/63 05/29/18 10:50 97.6 F 16 147/55 05/29/18 10:34 98.2 F 60 16 166/59 96 Intake and Output 05/29/18 05/29/18 05/30/18 15:59 23:59 07:59 Intake Total 740 / 740 Output Total 3800 / 3800 75 / 75 100 / 100 Balance -3060 / -3060 -75 / -75 -100 / -100 Intake: Oral 140 / 140 Intake, Rinseback and Flushes 600 / 600 Output: Urine 200 / 200 75 / 75 100 / 100 Total Dialysis (HD) Output 3600 / 3600 Other: Meal Breakfast Percent of Meal Consumed 15% # Voids 2 # Urine Diapers 1 Weight 78.5 kg Hemodialysis Net Fluid Removed 3000 (mL) Patient Weight 05/30/18 23:59 Weight 78.5 kg - General Appearance General appearance: Present: cachectic, chronically ill, frail EENT: Present: ATNC Neck: Present: supple Respiratory: Present: clear Cardiology: Present: no edema, normal S1, normal S2 Gastrointestinal: Present: no guarding Integumentary: Present: warm and dry - Lab 05/29/18 04:14 05/29/18 04:14 Most recent lab results Calcium 9.1 mg/dL (8.6-10.3) 05/29/18 04:14 Phosphorus 3.4 mg/dL (2.7-4.5) 05/26/18 05:01 Magnesium 2.3 mg/dL (1.6-2.6) 05/26/18 05:01 Consult Discharge Plan - Plan [facility]errals: [facility] [Primary Care Provider] -
--- NOTE | 2018-05-30 09:57 | Discharge Summary ---
- NOTES TO OUTPATIENT PROVIDER Notes to Outpatient Provider: 73 M admitted for multifocal PNA with bilateral parapneumonic loculated effusion s/p chest tube placement and removal. Discharged to SNF for rehab on 14 days of po Augmentin. Follow up with PCP and Nephrology. Follow up with [facility] in 6 to 8 weeks Orders not resulted at time of discharge: Pending orders 05/25/18 11:18 Culture,Sputum with Gram Stain [RM] Stat Legionella Antigen [RM] Stat Streptococcal pneumoniae urin antigen [S. Pneumoniae Antigen] [RM] Stat 05/25/18 11:57 Culture,Blood [BC] Stat 05/26/18 12:35 Culture,Body Fluid [RM] Routine 05/26/18 12:36 Culture,Body Fluid [RM] Routine Date of Encounter: 05/30/18 Time of Encounter: 09:57 - Discharge Diagnosis (1) CAD (coronary artery disease) Priority: Secondary Status: Chronic Assessment and Plan: s/p 3vCABG at [facility] on 08/30/16 thoracoadominal aneurysm repair at [facility] November 2016. Continue ASA, plavix , continue coreg and statin Qualifiers: Coronary Disease-Associated Artery/Lesion type: bypass graft [place] vs. transplanted heart: [place] heart Associated angina: without angina Qualified Code(s): I25.810 - Atherosclerosis of coronary artery bypass graft(s) without angina pectoris (2) Spinal stenosis at L4-L5 level Priority: Secondary Status: Chronic Assessment and Plan: Chronic, stable history of multiple falls - last admitted at [facility] for evaluation of falls PT OT recommends in-patient rehab Discharged to [facility] for rehab (3) Loculated pleural effusion Priority: Primary Status: Acute Assessment and Plan: CTPA performed on 05/25/18 showed - Evidence of bilateral loculated effusions worse in the lower lobes and worse in the right lower lobe. Lower lobe atelectatic and/or consolidative changes worse in the right lower lobe. s/p thoracocentesis in 12/25- cytology showed, Lymphocytes, reactive mesothelial cells and macrophages seen. cx negative s/p chest tube placement 05/26 Prior cytology was negative Looks transudative from current pleural fluid work up Repeat CXR STAT 05/27 shows improvement in effusion, possible consolidations Chest CT from 05/29 noted for interval improvement Chest tubes removed by Pulm 05/29 Patient was on van and Zosyn for 4 days, de-escalated to Zosyn only No growth from culture, cytology negative for malignancy Per pulmnology recommendation, continue Augmentin for at least 14 days Follow up with [facility] in 6-8 week (4) Goals of care, counseling/discussion Priority: Secondary Status: Acute Assessment and Plan: Currently DNR/DNI Palliative input noted and recommendations noted Discharge disposition is to [facility] (5) Acute respiratory failure with hypoxia Priority: Primary Status: Resolved Assessment and Plan: Resolved, not on O2 since 05/27 Patient was found to be hypoxic in the low 80s at the [facility] Multifactorial: Bilateral loculated pleural effusion as seen on chest CT as well as CHF exacerbation with elevated BNP and edema. On hemodialysis by nephrology, continue same Continue antibiotics for treatment of pneumonia Pulmonary embolism has been ruled out. Continue oxygen and wean as tolerated) (6) DVT prophylaxis Priority: Primary Status: Resolved (7) History of CVA (cerebrovascular accident) Priority: Primary Status: Chronic Assessment and Plan: Continue DAPT, Statin, PT (8) Acute on chronic HFrEF (heart failure with reduced ejection fraction) Priority: Primary Status: Acute Assessment and Plan: TTE 05/20/17 with EF 45-50%. Normal LV chamber size, wall thickness and low normal/mildly reduced function. ECHO 05/26 noted, EF 45-50%, mod Pulm HTN BNP 3176 Continue HD schedule as out-patient (9) Pneumonia Priority: Primary Status: Acute Assessment and Plan: organism unknown Received vanco and Zosyn for 3 days Cultures negative till date Continue Augmentin for 14 days Qualifiers: Pneumonia type: due to unspecified organism Laterality: right Lung location: lower lobe of lung Qualified Code(s): J18.1 - Lobar pneumonia, unspecified organism Hospital course: Mr. 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 He is seen and examined at the bedside Chest tube removed by Pumm 05/29, patient currently asymptomatic, in good spirits, denied new complains Physical Exam is unremarkable Stable to be discharged to SNF for rehab from a clinical standpoint See each diagnoses for details of hospital stay Follow up with PCP, Nephrology and Pulmonology Discharge discussed with: patient, nurse, social work, case management - Time Spent with Patient Total time spent providing and/or coordinating discharge services: Less than 30 minutes - Discharge Medications Prescriptions: OxyCODONE/APAP 5/325 [Percocet 5/325 MG] 1 each PO Q6HR PRN 7 Days #7 tablet PRN Reason: Pain Home Medications: Amlodipine Besylate 10 mg PO DAILY 10/22/16 [History] Aspirin Enteric Coated [Aspirin EC] 81 mg PO DAILY 10/22/16 [History] Montelukast [Singulair] 10 mg PO HS 10/22/16 [History] Albuterol Sulfate [Albuterol Inhaler] 2 puff IH Q4-6H PRN 10/30/17 [History] Carvedilol [Coreg] 25 mg PO BID 10/30/17 [History] Acetaminophen [Tylenol 8 Hour] 650 mg PO Q8H PRN 02/05/18 [History] Clopidogrel [Plavix] 75 mg PO DAILY 02/05/18 [History] LevETIRAcetam [Roweepra] 500 mg PO HS 02/05/18 [History] Melatonin [Melatin] 6 mg PO HS 02/05/18 [History] Sevelamer [Renvela] 1,600 mg PO TIDWM 02/05/18 [History] Tiotropium [Spiriva] 18 mcg IH 0700 02/05/18 [History] Calcium Acetate [Phos-LO] 667 mg PO TIDWM 05/25/18 [History] Folic Acid/Vit B Complex and C [Dialyvite Tablet] 1 tab PO DAILY 05/25/18 [History] Hydroxychloroquine [Plaquenuil] 200 mg PO DAILY 05/25/18 [History] Lisinopril 2.5 mg PO DAILY 05/25/18 [History] Nitroglycerin [Nitrostat] 0.4 mg SL AD 05/25/18 [History] Ranitidine HCl [Acid Biochemist] 150 mg PO HS 05/25/18 [History] Rosuvastatin Calcium [Crestor] 10 mg PO DAILY 05/25/18 [History] Amoxicillin/Clavulanate [Augmentin] 500 mg PO Q24H tablet 05/30/18 [Rx] OxyCODONE/APAP 5/325 [Percocet 5/325 MG] 1 each PO Q6HR PRN 7 Days #7 tablet 05/30/18 [Rx] Allergies/Adverse Reactions: Allergy/AdvReac Type Severity Reaction Status Date / Time atorvastatin AdvReac See Verified 05/26/18 10:48 Comments simvastatin AdvReac See Verified 05/26/18 10:48 Comments Date of admission: 05/25/18 12:27 Primary care physician[facility] Consults: 05/25/18 10:42 Consult to Pulmonology [CONS] Stat Consulting Provider: Pulm [facility] Reason for Consult: loculated pleural efffusions Call Completed: No 05/25/18 11:14 Consult to Interventional Radiology [CONS] Stat Consulting Provider: Radiology Interventional [facility] Reason for Consult: bilateral loculated pleural effusions seen on CTA Call Completed: Yes 05/25/18 11:18 Consult to Case Management [CONS] Routine Comment: Consult to Nutrition [CONS] Routine Comment: Consulting Provider: NUTRITION Reason for Dietary Consult: PO Supplementation Consult to Physical Therapy [CONS] Routine Comment: Evaluate, develop and implement POC Reason for Consult: dispostion Does patient have active BEDREST order?: No Is patient medically & hemodynamically stable?: Yes Patient assessed for mobility or mobilized this visit?: Yes OT [Consult to Occupational Therapy] [CONS] Routine Comment: Evaluate, develop and implement POC Reason for Consult: disposition Does patient have active BEDREST order?: No Is patient medically & hemodynamically stable?: Yes Patient assessed for mobility or mobilized this visit?: Yes 05/25/18 11:19 Consult to Palliative Care [CONS] Stat Comment: Consulting Provider: Palliative [facility] Reason for Consult: patient now DNR/DNI- multiple comorbidities Call Completed: No 05/25/18 11:45 Consult to Dialysis [CONS] ONCE 05/26/18 10:03 Consult to Nephrology [CONS] Routine Consulting Provider: [facility]/AGNIESZKA/GRIFFIN/AKIKO Reason for Consult: knOWN esrd, HD Call Completed: Yes 05/27/18 07:45 Consult to Dialysis [CONS] ONCE 05/29/18 08:45 Consult to Dialysis [CONS] ONCE Discharging clinician: Nas Neal Anticipated date of discharge: 05/30/18 - Constitutional Vitals: Temp Pulse Resp BP Pulse Ox 98.2 F 82 16 166/69 100 05/30/18 07:23 05/30/18 07:23 05/30/18 07:23 05/30/18 07:23 05/30/18 07:23 General appearance: Present: A&O X 3, pleasant, no acute distress Exam: General: Patient is alert, oriented, no acute distress Head: atraumatic, normocephalic, Eye: normal appearance, PERRL, no scleral icterus, no conjunctival injection ENT: mucous membranes moist, normal external ear exam Neck: normal inspection, trachea midline, full ROM, NO JVD Chest:CTAB Heart: S1, S2 only, no m/g/r Abdomen: Not tender, no palpably enalrged organs MSK: Spontaneously moving all extremities. no edema Skin: warm, dry, intact. left forearm fistula with audible bruit adn palpable t hrill , no rash Neuro: Alert and oriented x3 ,No focal weakness or speech deficits, mild Left hand contracture Psych:Appropriate affect - Patient Status Disposition: Transfer SNF Condition: Good Functional capacity at discharge: uses cane/walker Overall status at discharge: patient is progressing back to baseline - Discharge Instructions [facility] With: [facility] [[facility] Care Provider[facility] - (Please follow up with PCP at the [facility]) - Diet and Activity Activity: as per physical therapy, resume usual activities as tolerated Diet: diabetic diet, low fat, low cholesterol, low salt diet
--- NOTE | 2018-05-30 09:58 | Physician Discharge Referral ---
ExtendedCare Referral Info Transfer To: [facility] Provider in Charge: Cande Neal Provider in Charge after Transfer: PCP Institutional Level of Care: Skilled - Diagnosis (1) CAD (coronary artery disease) Priority: Secondary Status: Chronic (2) Spinal stenosis at L4-L5 level Priority: Secondary Status: Chronic (3) Loculated pleural effusion Priority: Primary Status: Resolved (4) Goals of care, counseling/discussion Priority: Primary Status: Acute (5) Acute respiratory failure with hypoxia Priority: Primary Status: Resolved (6) DVT prophylaxis Priority: Primary Status: Resolved (7) History of CVA (cerebrovascular accident) Priority: Secondary Status: Chronic (8) Acute on chronic HFrEF (heart failure with reduced ejection fraction) Priority: Primary Status: Acute (9) Pneumonia Priority: Primary Status: Acute Prognosis: Fair Aware of Diagnosis: Patient Aware of Prognosis: Patient - Transfer Medications Prescriptions: OxyCODONE/APAP 5/325 [Percocet 5/325 MG] 1 each PO Q6HR PRN 7 Days #7 tablet PRN Reason: Pain Home Medications: Amlodipine Besylate 10 mg PO DAILY 10/22/16 [History] Aspirin Enteric Coated [Aspirin EC] 81 mg PO DAILY 10/22/16 [History] Montelukast [Singulair] 10 mg PO HS 10/22/16 [History] Albuterol Sulfate [Albuterol Inhaler] 2 puff IH Q4-6H PRN 10/30/17 [History] Carvedilol [Coreg] 25 mg PO BID 10/30/17 [History] Acetaminophen [Tylenol 8 Hour] 650 mg PO Q8H PRN 02/05/18 [History] Clopidogrel [Plavix] 75 mg PO DAILY 02/05/18 [History] LevETIRAcetam [Roweepra] 500 mg PO HS 02/05/18 [History] Melatonin [Melatin] 6 mg PO HS 02/05/18 [History] Sevelamer [Renvela] 1,600 mg PO TIDWM 02/05/18 [History] Tiotropium [Spiriva] 18 mcg IH 0700 02/05/18 [History] Calcium Acetate [Phos-LO] 667 mg PO TIDWM 05/25/18 [History] Folic Acid/Vit B Complex and C [Dialyvite Tablet] 1 tab PO DAILY 05/25/18 [History] Hydroxychloroquine [Plaquenuil] 200 mg PO DAILY 05/25/18 [History] Lisinopril 2.5 mg PO DAILY 05/25/18 [History] Nitroglycerin [Nitrostat] 0.4 mg SL AD 05/25/18 [History] Ranitidine HCl [Acid Prime Broker] 150 mg PO HS 05/25/18 [History] Rosuvastatin Calcium [Crestor] 10 mg PO DAILY 05/25/18 [History] Amoxicillin/Clavulanate [Augmentin] 500 mg PO Q24H tablet 05/30/18 [Rx] OxyCODONE/APAP 5/325 [Percocet 5/325 MG] 1 each PO Q6HR PRN 7 Days #7 tablet 05/30/18 [Rx] Allergies/Adverse Reactions: Allergy/AdvReac Type Severity Reaction Status Date / Time atorvastatin AdvReac See Verified 05/26/18 10:48 Comments simvastatin AdvReac See Verified 05/26/18 10:48 Comments - Respiratory Orders Oxygen / L per min Smoking Cessation: Smoking cessation has been advised. For more information, call the [employer] Quit Line at 6-796-WIVF-NOW. - Advance Directives Code Status: DNR-Arrest/Don't Intubate - Rehabiliation Orders Rehab Orders: Evaluation for Physical Therapy, Evaluation for Occupational Therapy - Diet Orders Renal, Cardiac CERTIFICATION: I certify that the transfer of the above named patient to an Extended Care Facility is necessary for the continuing treatment of the diagnosis listed. The above information is true and accurate reflection of patient's current condition. Confidential - Redisclosure prohibited without a patient's written consent.
[2018-05-30] MEDS: Aspirin Enteric Coated 81 MG Tablet PO SCH (10:25)
[2018-05-30] MEDS: Renal Vitamin 1 CAP CAPSULE PO SCH (10:25)
[2018-05-30] MEDS: amLODIPine 5 MG TABLET PO SCH (10:25)
[2018-05-30 11:01] VITALS: BP 147/63
== END 2018-05-30 13:56 | DRG 291 ==
LOC: EMEROOARM 07:38 → 2ANU 07:38 → SUATTDRO 12:27 → 2ANU 05-26 14:54
PROVIDERS: ADMIT Internal Medicine; ATTEND Internal Medicine